=== PATIENT | male | born 1930 | race Caucasian/White ===

== ENCOUNTER 2016-03-22 10:41 | Emergency (ER) | payer OTHER ==
[~2016-03-22] VITALS: Ht 182.9 cm; Wt 98.0 kg
[~2016-03-22 10:41] MED LIST: ASPEC81 PO; CHOL1000 PO; FRRS300 PO; FURO-85 PO; LEVO1TAB50 PO; NITR0.4S UT; PRT40 PO; SENN-83 PO; SERT50TA PO; SOMNAPURE PO; VNTHFA/IN PO
[2016-03-22 10:44] VITALS: TEMP 36.4; Ht 182.9 cm; Wt 98.0 kg
[2016-03-22] MEDS ORDERED: NYSTATIN CR 15 GM TUBE EXT ONE (11:15)
--- NOTE | 2016-03-22 11:20 | EMERGENCY ROOM VISIT NOTE ---
History Report prepared by Sydney: Deepthi Oconnell Under the Supervision of: Dr. Javier Zazueta D.O. First contact with patient: 11:07 Chief Complaint: PENIS PAIN Stated Complaint: PAIN AT HEAD OF PENIS Nursing Triage Summary: pateint with indwelling catheter detention, has been having penile burning and pain. Son states he keeps playing with himself/ Saw the [place] doctor yesterday and they told them it was all ok. Penis has yellow drainage very red and tender. History of Present Illness The patient is an 85 year old male who presents to the Emergency Room with complaints of persistent penis pain that began prior to arrival. He currently rates his discomfort as a 5/10 in severity. Per nursing staff, the patient has an indwelling catheter that is replaced monthly. They note that the patient has had the catheter for years. Nursing staff notes that the patient's son states that the patient has been playing with the catheter which has caused irritation to his penis. They note drainage from his penis. The patient's son states that the patient saw his urologist yesterday and states that he was satisfied with the way everything looked. Source of History: patient, family Onset: prior to arrival Position: other (penis) Symptom Intensity: 5/10 Timing: other (persistent) Note: Associated Symptoms: indwelling catheter. Review of Systems See HPI for pertinent positives & negatives. A total of 10 systems reviewed and were otherwise negative. Past Medical & Surgical Medical Problems: (1) AAA (abdominal aortic aneurysm) (2) Anxiety (3) CKD (chronic kidney disease) stage 3, GFR 30-59 ml/min (4) Diastolic CHF (5) Hematemesis (6) HTN (hypertension) (7) Hypothyroid (8) Prostate cancer (9) Sepsis due to urinary tract infection (10) UTI (urinary tract infection) Surgical Problems: (1) History of AAA (abdominal aortic aneurysm) repair (2) History of appendectomy (3) History of endarterectomy Family History Hypertension Social History Smoking Status: Never Smoker Alcohol Use: none Drug Use: none Marital Status: Housing Status: lives with significant other Occupation Status: retired Current/Historical Medications Scheduled Aspirin (Aspirin EC Low Dose), 81 MG PO DAILY Cholecalciferol (Vitamin D3), 1 TAB PO DAILY Ferrous Sulfate (Ferrous Sulfate), 325 MG PO DAILY@12 Furosemide (Lasix), 20 MG PO DAILY Levothyroxine Sodium (Levoxyl), 75 MCG PO DAILY Pantoprazole (Pantoprazole Sodium), 40 MG PO BID Sennosides-Docusate Sodium (Senexon-S), 1 TAB PO HS Sertraline (Zoloft), 50 MG PO DAILY [somnapure], 1 TAB PO HS Scheduled PRN Albuterol Hfa (Ventolin Hfa), 2 PUFFS PO Q4H PRN for Wheezing Nitroglycerin (Nitrostat), 0.4 MG UT UD PRN for Chest Pain Allergies Coded Allergies: No Known Allergies (Unverified , 11/08/15) Physical Exam Vital Signs Date Time Temp Pulse Resp B/P Pulse Ox O2 Delivery O2 Flow Rate FiO2 03/22/16 10:44 36.4 85 16 119/66 99 Room Air Physical Exam CONSTITUTIONAL/VITAL SIGNS: Reviewed / noted above. GENERAL: Non-toxic in appearance. INTEGUMENTARY: Warm, dry, and [place]. HEAD: Normocephalic. EYES: without scleral icterus or trauma. ENT/OROPHARYNX: clear and moist. LYMPHADENOPATHY/NECK: Is supple without lymphadenopathy or meningismus. RESPIRATORY: Lungs clear and equal. CARDIOVASCULAR: Regular rate and rhythm. GI/ABDOMEN: Soft and nontender. No organomegaly or pulsatile mass. No rebound or guarding. Normal bowel sounds. EXTREMITIES: Warm and well perfused. BACK: No CVA tenderness. : Uncircumcised. Mild erythema to the head of the penis with a mild yeast infection of the uncircumcised penis. NEUROLOGICAL: Intact without focal deficits. PSYCHIATRIC: normal affect. MUSCULOSKELETAL: Normally developed with good muscle tone. Medical Decision & Procedures Medications Administered Medications (Trade) Dose Ordered Sig/Amilcar Route Start Time Stop Time Status Last Admin Dose Admin Nystatin (Mycostatin Crm) 1 appln ONE ONCE EXT 03/22/16 11:15 03/22/16 11:16 DC 03/22/16 11:23 1 APPLN ED Course 1109: Previous medical records were reviewed. The patient was evaluated in room C4. A complete history and physical examination was performed. I discussed the exam findings and I discussed the treatment plan. He verbalized complete understanding and agreement. He is ready to go home. 1115: Ordered Nystatin 1 appln EXT. Medical Decision differential diagnosis include Infection vs. trauma vs. paraphimosis, and phimosis This is an 85-year-old male who presents to the ED with a chief complaint of discomfort in his penis. The patient has an indwelling Rothman catheter. He saw his urologist yesterday. He apparently did not have any complaints yesterday according to the son. Today he describes discomfort in the head of the penis area. The exam reveals some erythema of the head of the penis and the skin thereabouts. He is uncircumcised. There is a small amount of whitish discharge. There was discomfort with retraction of his foreskin. This was replaced. He will be started on nystatin cream twice a day. Impression Primary Impression: Intertrigo Additional Impression: Candidal intertrigo Scribe Attestation The scribe's documentation has been prepared under my direction and personally reviewed by me in its entirety. I confirm that the note above accurately reflects all work, treatment, procedures, and medical decision making performed by me. Departure Information Dispostion Home / Self-Care Referrals No Doctor, Assigned (PCP) Forms HOME CARE DOCUMENTATION FORM, IMPORTANT VISIT INFORMATION Patient Instructions My [facility] [place] Additional Instructions Use nystatin cream to the affected area the penis twice daily. Follow-up with your doctor for recheck in one week. Problem Qualifiers
[2016-03-22 11:44] VITALS: BP 150/78; PULSE 80; O2SAT 97
[2016-04-02] MEDS ORDERED: AMB5 PO (14:21)
[2016-04-02] MEDS ORDERED: CMD3 PO (14:21)
[2016-04-02] MEDS ORDERED: RXC5 PO (14:46)
[2016-06-14] MEDS ORDERED: DXY100 PO (12:13)
[2016-06-14] MEDS ORDERED: PRED10TA PO (12:13)
[2016-08-07] MEDS ORDERED: PRED-301 PO (16:15)
[2016-08-07] MEDS ORDERED: CARV6.252 PO (16:15)
[2016-08-07] MEDS ORDERED: LORA-741 PO (19:00)
== END 2016-03-22 11:46 | disposition home or self-care (01) ==
LOC: C.EDB 10:42 → C.EDC 11:46
DX: B37.2 Candidiasis of skin and nail (principal); N18.3 Chronic kidney disease, stage 3 (moderate); F41.9 Anxiety disorder, unspecified; I50.9 Heart failure, unspecified; E03.9 Hypothyroidism, unspecified; Z85.46 Personal history of malignant neoplasm of prostate; Z82.49 Family history of ischemic heart disease and other diseases of the circulatory system; Z79.82 Long term (current) use of aspirin; Z79.899 Other long term (current) drug therapy

== ENCOUNTER 2016-03-27 11:41 | Inpatient (IN) | payer OTHER ==
[~2016-03-27] VITALS: Ht 185.4 cm; Wt 97.0 kg
[2016-03-27] MEDS ORDERED: ALBUT/IPRATROP 3MG/0.5MG NEB 3 ML VIAL INH ONE (12:15)
--- NOTE | 2016-03-27 12:22 | EMERGENCY ROOM VISIT NOTE ---
History Report prepared by Sydney: Milo Washington Under the Supervision of: Dr. Javier Grider M.D. First contact with patient: 11:53 Chief Complaint: SHORTNESS OF BREATH Stated Complaint: SOB Nursing Triage Summary: Pt c/o shortness of breath, no associated cough for approx 1 week. Pts son reports this started this AM. Pt seen here on Friday d/t urinary symptoms. History of Present Illness The patient is an 86 year old male with a history of COPD who presents to the Emergency Room with complaints of worsening shortness of breath for the past week. The patient's son states that the shortness of breath became worse this morning. The patient denies any fevers, chest pain, or coughing. The patient tried using his inhaler, which has not helped. The patient does not have a cardiac history and is not on blood thinners. The patient also complains of penile pain associated with a Rothman catheter. He was here for the same pain five days ago. He has been applying his prescription cream. The patient's son notes that there is blood in his catheter, which is still draining. Source of History: patient, family (son) Onset: one week Position: other (respiratory) Quality: other (short of breath) Timing: worsening Associated Symptoms: No chest pain, No cough, No fevers Review of Systems See HPI for pertinent positives & negatives. A total of 10 systems reviewed and were otherwise negative. Past Medical & Surgical Medical Problems: (1) AAA (abdominal aortic aneurysm) (2) Anxiety (3) CAD (coronary artery disease) (4) CKD (chronic kidney disease) stage 3, GFR 30-59 ml/min (5) Diastolic CHF (6) Dyslipidemia (7) HTN (hypertension) (8) Hypothyroid (9) Prostate cancer Surgical Problems: (1) duodenal ulcer repair (2) H/O prostatectomy (3) H/O right inguinal hernia repair (4) History of AAA (abdominal aortic aneurysm) repair (5) History of appendectomy (6) History of cataract surgery (7) History of endarterectomy Family History Hypertension Social History Smoking Status: Former Smoker Alcohol Use: none Drug Use: none Marital Status: Housing Status: lives with significant other Occupation Status: retired Current/Historical Medications Scheduled Aspirin (Aspirin EC Low Dose), 81 MG PO DAILY Cholecalciferol (Vitamin D3), 1 TAB PO DAILY Ferrous Sulfate ( Ferrous Sulfate), 1 TAB PO DAILY Furosemide (Lasix), 20 MG PO DAILY Latanoprost (Xalatan 0.005% Oph Irma), 1 DROPS OPL HS Levothyroxine Sodium (Synthroid), 75 MCG PO DAILY Melatonin (Melatonin Maximum Strengt), 1 TAB PO HS Oxybutynin Chloride Er (Ditropan Xl), 1 TAB PO DAILY Pantoprazole (Pantoprazole Sodium), 40 MG PO BID Sennosides-Docusate Sodium (Senexon-S), 1 TAB PO HS Sertraline (Zoloft), 50 MG PO DAILY Scheduled PRN Albuterol Hfa (Ventolin Hfa), 2 PUFFS PO Q4H PRN for Wheezing Nitroglycerin (Nitrostat), 0.4 MG UT UD PRN for Chest Pain Allergies Coded Allergies: No Known Allergies (Unverified , 03/27/16) Physical Exam Vital Signs Date Time Temp Pulse Resp B/P Pulse Ox O2 Delivery O2 Flow Rate FiO2 03/27/16 15:06 68 14 93 Room Air 03/27/16 14:31 96 18 118/54 91 Room Air 03/27/16 13:30 73 16 122/66 100 Room Air 03/27/16 12:30 67 16 118/67 96 Room Air 03/27/16 12:19 71 03/27/16 12:18 96 Room Air 03/27/16 12:01 96 Room Air 03/27/16 12:01 96 Room Air 03/27/16 11:46 36.3 77 18 132/78 93 Room Air 03/27/16 11:46 93 Room Air Physical Exam GENERAL: Patient is a healthy-appearing well-nourished HEAD: Normocephalic atraumatic EYES: Ocular movements intact pupils equal and react to light OROPHARYNX mucous membranes are moist no exudates present no erythema or edema present NECK: Supple no nuchal rigidity CHEST: Good equal expansion LUNGS: Clear and equal to auscultation CARDIAC: Normal S1 and S2 ABDOMEN: Soft nontender no guarding BACK: No CVA tenderness : Rothman in place. EXTREMITIES: No pain upon palpation normal muscle strength in all groups no clubbing cyanosis or edema NEURO: Patient is following commands is answering questions appropriately. Alert and oriented x3 Cranial Nerves 2-12 grossly intact Medical Decision & Procedures ER Provider Diagnostic Interpretation: X-ray results as stated below per my interpretation and radiologist interpretation. Other radiology results as stated below per my review and radiologist interpretation: CHEST ONE VIEW PORTABLE CLINICAL HISTORY: Hypoxia. COMPARISON STUDY: Chest radiograph November 08, 2015. FINDINGS: No pneumothorax or pleural effusion is present. Elevation of the right hemidiaphragm is unchanged. Moderate cardiomegaly is unchanged. Mild interstitial thickening is noted. This is similar to prior study. There is no lobar consolidation. Mild bibasilar opacities favor atelectasis. IMPRESSION: 1. Mild age indeterminate interstitial thickening. 2. Stable elevation of the right hemidiaphragm. 3. Stable moderate cardiomegaly. Electronically signed by: Heath Mendez M.D. 03/27/2016 1:12 PM Dictated Date/Time: 03/27/2016 1:11 PM ABDOMEN AND PELVIS CT WITHOUT CONTRAST CT DOSE: 1142.85 mGycm HISTORY: Pt c/o hematuria TECHNIQUE: Multiaxial CT images of the abdomen and pelvis were performed without contrast. COMPARISON STUDY: Abdomen and pelvis CT 11/08/2015. FINDINGS: Mild to moderate bilateral cortical renal scarring. Bilateral renal hypodense lesions are incompletely characterized on this noncontrast study. These remain stable. Dominant lesion within the lower pole of the left kidney measures 6.7 cm. In comparison to the prior study this is consistent with a cyst. No renal stones or hydronephrosis. The bladder is decompressed by Rothman catheter. The distal ureters are not well visualized due to the metallic artifact from the multiple surgical clips within the pelvis. However, the visualized ureters appear to be normal in course and caliber. No ureteral calculi identified. There is again noted an aortobiiliac stent graft repair of abdominal aortic aneurysm. The abdominal aorta measures up to 5.0 x 4.4 cm. This remains unchanged. Right lower quadrant tubing extending into the right groin. This is consistent with a implant device. No pelvic free fluid. Suboptimal evaluation for bowel pathology due to the lack of intravenous and oral contrast. However, no definite bowel wall thickening or obstruction. Multiple colonic diverticula. The heart is mildly enlarged. Diffuse interstitial thickening throughout the visualized lungs. The unenhanced liver, gallbladder, spleen, adrenal glands, and pancreas are unremarkable. The prostate gland appears to be surgically absent. The 13 mm lesion within the upper pole may demonstrate enhancement in comparison to the prior study. This raises the possibility of a small renal cell carcinoma. IMPRESSION: 1. No renal stones or hydronephrosis. 2. Bilateral renal lesions are indeterminate on this noncontrast study but remain unchanged. The 13 mm lesion within the upper pole may demonstrate enhancement in comparison to the prior study. This raises the possibility of a small renal cell carcinoma. Dedicated renal CT can be used for confirmation. 3. Colonic diverticulosis. 4. No definite bowel wall thickening or obstruction. 5. Stable aneurysmal dilatation of the abdominal aorta with evidence for prior aortobiiliac stent graft repair. Electronically signed by: Arden Calle M.D. 03/27/2016 1:27 PM Dictated Date/Time: 03/27/2016 1:15 PM Laboratory Results Test 03/27/16 12:00 03/27/16 13:27 Immature Granulocyte % (Auto) 0.3 % White Blood Count 10.12 K/uL (4.8-10.8) Red Blood Count 4.24 M/uL (4.7-6.1) Hemoglobin 12.9 g/dL (14.0-18.0) Hematocrit 38.6 % (42-52) Mean Corpuscular Volume 91.0 fL (80-100) Mean Corpuscular Hemoglobin 30.4 pg (25-34) Mean Corpuscular Hemoglobin Concent 33.4 g/dl (32-36) Platelet Count 192 K/uL (130-400) Mean Platelet Volume 10.4 fL (7.4-10.4) Neutrophils (%) (Auto) 71.0 % Lymphocytes (%) (Auto) 15.5 % Monocytes (%) (Auto) 10.1 % Eosinophils (%) (Auto) 2.9 % Basophils (%) (Auto) 0.2 % Neutrophils # (Auto) 7.19 K/uL (1.4-6.5) Lymphocytes # (Auto) 1.57 K/uL (1.2-3.4) Monocytes # (Auto) 1.02 K/uL (0.11-0.59) Eosinophils # (Auto) 0.29 K/uL (0-0.5) Basophils # (Auto) 0.02 K/uL (0-0.2) Immature Granulocyte # (Auto) 0.03 K/uL (0.00-0.02) D-Dimer 8140 ug/L FEU (0-500) Total Bilirubin 0.3 mg/dl (0.2-1) Aspartate Amino Transf (AST/SGOT) 11 U/L (15-37) Alanine Aminotransferase (ALT/SGPT) 12 U/L (12-78) Alkaline Phosphatase 76 U/L (45-117) Total Creatine Kinase 36 U/L (39-308) Creatine Kinase MB 1.5 ng/ml (0.5-3.6) Creatine Kinase MB Ratio 4.2 (0-3.0) Troponin I < 0.015 ng/ml (0-0.045) Total Protein 7.7 gm/dl (6.4-8.2) Albumin 3.5 gm/dl (3.4-5.0) Globulin 4.2 gm/dl (2.5-4.0) Albumin/Globulin Ratio 0.8 (0.9-2) Influenza Type A (RT-PCR) Neg for Influ A (NEG) Influenza Type B (RT-PCR) Neg for Influ B (NEG) Labs reviewed by ED physician. Medications Administered Medications (Trade) Dose Ordered Sig/Amilcar Route Start Time Stop Time Status Last Admin Dose Admin Albuterol/ Ipratropium (Duoneb) 12 ml ONE ONCE INH 03/27/16 12:15 03/27/16 12:16 DC 03/27/16 13:27 12 ML Morphine Sulfate (MoRPHine SULFATE INJ) 2 mg NOW STAT IV 03/27/16 12:24 03/27/16 12:25 DC 03/27/16 12:48 2 MG Ondansetron HCl (Zofran Inj) 4 mg NOW STAT IV 03/27/16 12:24 03/27/16 12:25 DC 03/27/16 12:48 4 MG Ceftriaxone Sodium (Rocephin Inj) 1 gm NOW STAT IV 03/27/16 14:27 03/27/16 14:28 DC 03/27/16 14:38 1 GM Methylprednisolone Sodium Succinate (Solu-Medrol IV) 60 mg NOW STAT IV 03/27/16 15:00 03/27/16 15:01 DC 03/27/16 15:31 60 MG Acetaminophen (Tylenol Tab) 650 mg Q4H PRN PO 03/27/16 15:15 04/26/16 15:14 03/28/16 08:18 650 MG ECG Indication: SOB/dyspnea Rate (beats per minute): 69 Rhythm: normal sinus Findings: no acute ischemic change, no ectopy ED Course 1155: The patient was evaluated by my Nurse Practitioner student. 1215: DuoNeb 12 ml INH. 1217: Past medical records reviewed. The patient was evaluated in room A4b. A complete history and physical examination was performed. 1224: Zofran 4 mg IV, Morphine Sulfate 2 mg IV. 1427: Rocephin 1 gm IV. 1458: Discussed the case with MARY BETH Taylor [facility] Hospitalist. The patient will be evaluated. 1500: Solu-Medrol 60 mg IV. Medical Decision Etiologies such as infections, reactive airway disease, pneumonia, pneumothorax , COPD, CHF, cardiac ischemia, pulmonary embolism, musculoskeletal, gastrointestinal, as well as others were entertained. This is an 86-year-old male who presents emergency department complaining of worsening shortness of breath as well as increased penis pain. The patient was recently evaluated for the penis pain and started on nystatin. He was given an hour-long breathing treatment in the emergency department started on Solu- Medrol. He does have a history of COPD. He was started on Rocephin for urinary tract infection. I did discuss case with the hospitalist service who agreed to admit the patient. Patient and family were in agreement with the treatment plan. Consults Time Called: 1450 Consulting Physician: MARY BETH [facility]ist Returned Call: [phone]: Discussed the case with MARY BETH [facility] Hospitalist. The patient will be evaluated Impression Primary Impression: UTI (urinary tract infection) Scribe Attestation The scribe's documentation has been prepared under my direction and personally reviewed by me in its entirety. I confirm that the note above accurately reflects all work, treatment, procedures, and medical decision making performed by me. Departure Information Dispostion Being Evaluated By Hospitalist Referrals Nikki Peters M.D. (PCP) Patient Instructions My [facility] Health Problem Qualifiers Primary Impression: UTI (urinary tract infection) Urinary tract infection type: acute cystitis Hematuria presence: without hematuria Qualified Codes: N30.00 - Acute cystitis without hematuria
[2016-03-27 12:24] LABS: BASO % 0.2 %; BASO ABS # 0.02 K/uL (0-0.2); COMPLETE YES; EOS % 2.9 %; HEMATOCRIT 38.6 % (42-52); IG% 0.3 %; LYMPH % 15.5 %; LYMPH ABS # 1.57 K/uL (1.2-3.4); MEAN CORPUSCULAR HEMOGLOBIN 30.4 pg (25-34); MEAN CORPUSCULAR HGB CONC 33.4 g/dl (32-36); MEAN PLATELET VOLUME 10.4 fL (7.4-10.4); MONO % 10.1 %; PLATELET COUNT 192 K/uL (130-400); RED BLOOD COUNT 4.24 M/uL (4.7-6.1); WHITE BLOOD COUNT 10.12 K/uL (4.8-10.8)
[2016-03-27] MEDS ORDERED: ONDANSETRON INJ 2 MG/ML 2 ML VIAL IV STA (12:24)
[2016-03-27] MEDS ORDERED: MoRPHine SULFATE 4 MG/ML 1 ML CARP\\VIAL IV STA (12:24)
[2016-03-27 12:33] LABS: ALT/SGPT 12 U/L (12-78); BLOOD UREA NITROGEN 32 mg/dl (7-18); BUN/CREATININE RATIO 22.6 (10-20); CALCIUM 9.1 mg/dl (8.5-10.1); CARBON DIOXIDE 30 mmol/L (21-32); CHLORIDE 97 mmol/L (98-107); GLUCOSE 102 mg/dl (70-99); POTASSIUM 4.6 mmol/L (3.5-5.1); SODIUM 136 mmol/L (136-145)
[2016-03-27] MEDS ORDERED: LEVO75TA PO (12:34)
[2016-03-27 12:37] LABS: ALB/GLOB RATIO 0.8 (0.9-2); ALKALINE PHOSPHATASE 76 U/L (45-117); AST/SGOT 11 U/L (15-37); CKMB/CK RATIO 4.2 (0-3.0)
--- NOTE | 2016-03-27 13:15 | DIAGNOSTIC IMAGING REPORT ---
CHEST ONE VIEW PORTABLE CLINICAL HISTORY: Hypoxia. COMPARISON STUDY: Chest radiograph November 08, 2015. FINDINGS: No pneumothorax or pleural effusion is present. Elevation of the right hemidiaphragm is unchanged. Moderate cardiomegaly is unchanged. Mild interstitial thickening is noted. This is similar to prior study. There is no lobar consolidation. Mild bibasilar opacities favor atelectasis. IMPRESSION: 1. Mild age indeterminate interstitial thickening. 2. Stable elevation of the right hemidiaphragm. 3. Stable moderate cardiomegaly. Electronically signed by: Heath Mendez M.D. 03/27/2016 1:12 PM Dictated Date/Time: 03/27/2016 1:11 PM
--- NOTE | 2016-03-27 13:29 | DIAGNOSTIC IMAGING REPORT ---
ABDOMEN AND PELVIS CT WITHOUT CONTRAST CT DOSE: 1142.85 mGycm HISTORY: Pt c/o hematuria TECHNIQUE: Multiaxial CT images of the abdomen and pelvis were performed without contrast. COMPARISON STUDY: Abdomen and pelvis CT 11/08/2015. FINDINGS: Mild to moderate bilateral cortical renal scarring. Bilateral renal hypodense lesions are incompletely characterized on this noncontrast study. These remain stable. Dominant lesion within the lower pole of the left kidney measures 6.7 cm. In comparison to the prior study this is consistent with a cyst. No renal stones or hydronephrosis. The bladder is decompressed by Rothman catheter. The distal ureters are not well visualized due to the metallic artifact from the multiple surgical clips within the pelvis. However, the visualized ureters appear to be normal in course and caliber. No ureteral calculi identified. There is again noted an aortobiiliac stent graft repair of abdominal aortic aneurysm. The abdominal aorta measures up to 5.0 x 4.4 cm. This remains unchanged. Right lower quadrant tubing extending into the right groin. This is consistent with a implant device. No pelvic free fluid. Suboptimal evaluation for bowel pathology due to the lack of intravenous and oral contrast. However, no definite bowel wall thickening or obstruction. Multiple colonic diverticula. The heart is mildly enlarged. Diffuse interstitial thickening throughout the visualized lungs. The unenhanced liver, gallbladder, spleen, adrenal glands, and pancreas are unremarkable. The prostate gland appears to be surgically absent. The 13 mm lesion within the upper pole may demonstrate enhancement in comparison to the prior study. This raises the possibility of a small renal cell carcinoma. IMPRESSION: 1. No renal stones or hydronephrosis. 2. Bilateral renal lesions are indeterminate on this noncontrast study but remain unchanged. The 13 mm lesion within the upper pole may demonstrate enhancement in comparison to the prior study. This raises the possibility of a small renal cell carcinoma. Dedicated renal CT can be used for confirmation. 3. Colonic diverticulosis. 4. No definite bowel wall thickening or obstruction. 5. Stable aneurysmal dilatation of the abdominal aorta with evidence for prior aortobiiliac stent graft repair. Electronically signed by: Arden Calle M.D. 03/27/2016 1:27 PM Dictated Date/Time: 03/27/2016 1:15 PM
[2016-03-27] MEDS ORDERED: CEFTRIAXONE SOD INJ 1 GM ADDVIAL IV STA (14:27)
[2016-03-27] MEDS ORDERED: METHYLPREDNISOLONE 125 MG VIAL IV STA (15:00)
[2016-03-27 15:04] LABS: INFLUENZA A PCR Neg for Influ A (NEG); INFLUENZA B PCR Neg for Influ B (NEG)
[2016-03-27 15:06] VITALS: PULSE 68; O2SAT 93
[2016-03-27] MEDS ORDERED: ONDANSETRON INJ 2 MG/ML 2 ML VIAL IV PRN (15:15)
[2016-03-27 15:59] LABS: URINE APPEARANCE CLEAR (CLEAR); URINE BILIRUBIN NEG (NEG); URINE COLOR DK YELLOW; URINE NITRITE NEG (NEG); URINE SPECIFIC GRAVITY 1.015 (1.000-1.030); UROBILINOGEN NEG (NEG)
[2016-03-27 16:12] LABS: MANUAL MICROSCOPIC REQUIRED? NO; REVIEW REQ? YES
[2016-03-27] MEDS ORDERED: OPTIRAY 320 IV PRN (16:15)
[2016-03-27 16:21] LABS: URINE MUCUS PRESENT (NONE PRSENT)
[2016-03-27] MEDS ORDERED: OXYB10TA PO (16:54)
[2016-03-27] MEDS ORDERED: FERR1TAB13 PO (16:54)
--- NOTE | 2016-03-27 17:48 | History and Physical ---
History & Physical Date & Time of Service: Mar 27, 2016 at 17:15 Chief Complaint: Shortness of Breath, Blood in Urine Primary Care Physician: Nikki Peters M.D. History of Present Illness 86 year old male who presents to the ER with shortness of breath and blood in his urine. Patient has underlying dementia and some history is obtained from patient's son who is at the bedside. About one month ago, patient had a arita placed for incontinence. Patient has developed irritation around the insertion site. Today patient's son reports he noted a small amount of bright red blood in the catheter tubing. This has since resolved. Also when patient woke up this morning he was complaining of shortness of breath. No cough or sputum production. He denies fever and chills. No chest pain, lightheadedness, dizziness, diaphoresis, or syncopal events. He denies abdominal pain, nausea, vomiting, and diarrhea. In the ER, patient's U/A was suggesting UTI. There was wheezing noted on exam. He was saturating 91% on room air. CXR was negative for acute findings. CT abd/pelvis was negative for acute findings as well however shows renal lesions concerning for small cell renal carcinoma. D. Dimer is elevated. Remainder of patient's labs are unremarkable. Patient was treated with IV Rocephin, solu-medrol, and neb. Past Medical/Surgical History Medical Problems: (1) AAA (abdominal aortic aneurysm) Permanent Comment: 5.1 cm s/p AAA repair 08/08/2011 Status: Resolved (2) Anxiety Status: Chronic (3) CAD (coronary artery disease) Permanent Comment: suspected, hx of abnormal stress, patient declined cardiac cath Status: Chronic (4) CKD (chronic kidney disease) stage 3, GFR 30-59 ml/min Status: Chronic (5) Diastolic CHF Permanent Comment: echo 03/2015 - EF 60-65%, grade II diastolic dysfunction Status: Chronic (6) Dyslipidemia Status: Chronic (7) HTN (hypertension) Status: Chronic (8) Hypothyroid Status: Chronic (9) Prostate cancer Status: Chronic Surgical Problems: (1) duodenal ulcer repair Status: Chronic (2) H/O prostatectomy Status: Chronic (3) H/O right inguinal hernia repair Status: Chronic (4) History of AAA (abdominal aortic aneurysm) repair Permanent Comment: 08/08/2011 Status: Resolved (5) History of appendectomy Status: Resolved (6) History of cataract surgery Status: Chronic (7) History of endarterectomy Permanent Comment: L endarterectomy 10/09/[address] Jacobs; carotid US 2014 shows 50-69% stenosis of RAFAT Status: Chronic Family History non contributory due to patient's age Social History Smoking Status: Former Smoker Alcohol Use: none Marital Status: Housing status: lives with significant other Immunizations History of Influenza Vaccine: Yes Influenza Vaccine Date: Nov 16, 2015 History of Tetanus Vaccine?: Yes Tetanus Immunization Date: Mar 03, 2005 History of Pneumococcal: Yes Pneumococcal Date: Aug 15, 2014 Allergies Coded Allergies: No Known Allergies (Unverified , 03/27/16) Home Medications Scheduled Aspirin (Aspirin EC Low Dose), 81 MG PO DAILY Cholecalciferol (Vitamin D3), 1 TAB PO DAILY Ferrous Sulfate (Kp Ferrous Sulfate), 1 TAB PO DAILY Furosemide (Lasix), 20 MG PO DAILY Latanoprost (Xalatan 0.005% Oph Irma), 1 DROPS OPL HS Levothyroxine Sodium (Synthroid), 75 MCG PO DAILY Melatonin (Melatonin Maximum Strengt), 1 TAB PO HS Oxybutynin Chloride Er (Ditropan Xl), 1 TAB PO DAILY Pantoprazole (Pantoprazole Sodium), 40 MG PO BID Sennosides-Docusate Sodium (Senexon-S), 1 TAB PO HS Sertraline (Zoloft), 50 MG PO DAILY Scheduled PRN Albuterol Hfa (Ventolin Hfa), 2 PUFFS PO Q4H PRN for Wheezing Nitroglycerin (Nitrostat), 0.4 MG UT UD PRN for Chest Pain Review of Systems 10 point review of systems was completed with the pertinent positives and negatives noted per the HPI Physical Exam Vital Signs Date Time Temp Pulse Resp B/P Pulse Ox O2 Delivery O2 Flow Rate FiO2 03/27/16 16:19 100 03/27/16 15:32 92 22 102/58 96 Nasal Cannula 2.0 03/27/16 15:06 68 14 93 Room Air 03/27/16 14:31 96 18 118/54 91 Room Air 03/27/16 13:30 73 16 122/66 100 Room Air 03/27/16 12:30 67 16 118/67 96 Room Air 03/27/16 12:19 71 1/25/17 12:18 96 Room Air 03/27/16 12:01 96 Room Air 03/27/16 12:01 96 Room Air 03/27/16 11:46 36.3 77 18 132/78 93 Room Air 03/27/16 11:46 93 Room Air please refer to Dr. Lazar's addendum for physical exam Diagnostics Laboratory Results Results Past 24 Hours Test 03/27/16 12:00 03/27/16 13:27 03/27/16 15:30 Range/Units White Blood Count 10.12 4.8-10.8 K/uL Red Blood Count 4.24 4.7-6.1 M/uL Hemoglobin 12.9 14.0-18.0 g/dL Hematocrit 38.6 42-52 % Mean Corpuscular Volume 91.0 80-100 fL Mean Corpuscular Hemoglobin 30.4 25-34 pg Mean Corpuscular Hemoglobin Concent 33.4 32-36 g/dl Platelet Count 192 130-400 K/uL Mean Platelet Volume 10.4 7.4-10.4 fL Neutrophils (%) (Auto) 71.0 % Lymphocytes (%) (Auto) 15.5 % Monocytes (%) (Auto) 10.1 % Eosinophils (%) (Auto) 2.9 % Basophils (%) (Auto) 0.2 % Neutrophils # (Auto) 7.19 1.4-6.5 K/uL Lymphocytes # (Auto) 1.57 1.2-3.4 K/uL Monocytes # (Auto) 1.02 0.11-0.59 K/uL Eosinophils # (Auto) 0.29 0-0.5 K/uL Basophils # (Auto) 0.02 0-0.2 K/uL RDW Standard Deviation 50.0 36.4-46.3 fL RDW Coefficient of Variation 14.9 11.5-14.5 % Immature Granulocyte % (Auto) 0.3 % Immature Granulocyte # (Auto) 0.03 0.00-0.02 K/uL D-Dimer 8140 0-500 ug/L FEU Sodium Level 136 136-145 mmol/L Potassium Level 4.6 3.5-5.1 mmol/L Chloride Level 97 98-107 mmol/L Carbon Dioxide Level 30 21-32 mmol/L Anion Gap 9.0 3-11 mmol/L Blood Urea Nitrogen 32 7-18 mg/dl Creatinine 1.40 0.60-1.40 mg/dl Est Creatinine Clear Calc Drug Dose 44.7 ml/min Estimated GFR () 51.6 Estimated GFR (Non- 44.5 BUN/Creatinine Ratio 22.6 10-20 Random Glucose 102 70-99 mg/dl Calcium Level 9.1 8.5-10.1 mg/dl Total Bilirubin 0.3 0.2-1 mg/dl Aspartate Amino Transf (AST/SGOT) 11 15-37 U/L Alanine Aminotransferase (ALT/SGPT) 12 12-78 U/L Alkaline Phosphatase 76 45-117 U/L Total Creatine Kinase 36 39-308 U/L Creatine Kinase MB 1.5 0.5-3.6 ng/ml Creatine Kinase MB Ratio 4.2 0-3.0 Troponin I < 0.015 0-0.045 ng/ml Total Protein 7.7 6.4-8.2 gm/dl Albumin 3.5 3.4-5.0 gm/dl Globulin 4.2 2.5-4.0 gm/dl Albumin/Globulin Ratio 0.8 0.9-2 Influenza Type A (RT-PCR) Neg for Influ A NEG Influenza Type B (RT-PCR) Neg for Influ B NEG Urine Color DK YELLOW Urine Appearance CLEAR CLEAR Urine pH 5.0 4.5-7.5 Urine Specific [place] 1.015 1.000-1.030 Urine Protein NEG NEG Urine Glucose (UA) NEG NEG Urine Ketones TRACE NEG Urine Occult Blood 2+ NEG Urine Nitrite NEG NEG Urine Bilirubin NEG NEG Urine Urobilinogen NEG NEG Urine Leukocyte Esterase MODERATE NEG Urine WBC (Auto) 5-10 0-5 /hpf Urine RBC (Auto) >30 0-4 /hpf Urine Hyaline Casts (Auto) 0 0-5 /lpf Urine Epithelial Cells (Auto) 10-20 0-5 /lpf Urine Bacteria (Auto) NEG NEG Urine Pathogenic Casts 0 /lpf Urine Mucus PRESENT NONE PRSENT Microbiology Results 03/27/16 Blood Culture, Received Pending 03/27/16 Blood Culture, Received Pending Diagnostic Radiology CXR IMPRESSION: 1. Mild age indeterminate interstitial thickening. 2. Stable elevation of the right hemidiaphragm. 3. Stable moderate cardiomegaly. CT ABD/PELVIS IMPRESSION: 1. No renal stones or hydronephrosis. 2. Bilateral renal lesions are indeterminate on this noncontrast study but remain unchanged. The 13 mm lesion within the upper pole may demonstrate enhancement in comparison to the prior study. This raises the possibility of a small renal cell carcinoma. Dedicated renal CT can be used for confirmation. 3. Colonic diverticulosis. 4. No definite bowel wall thickening or obstruction. 5. Stable aneurysmal dilatation of the abdominal aorta with evidence for prior aortobiiliac stent graft repair. Impression Assessment and Plan SHORTNESS OF BREATH - admit to med/surg - patient was 91% on room air, 96% on 2L - ? COPD exacerbation - however no formal diagnosis - no wheezing noted on exam - will use around the clock nebs; hold on steroids for now - CXR without infiltrate or CHF - D. Dimer elevated - will get CTA and BLLE dopplers HEMATURIA, RENAL LESIONS - CT abd/pelvis concerning for possible small cell renal carcinoma - due to patient's advanced age, unsure of how aggressive treatment will be - no hematuria noted currently; could be due to UTI or arita trauma - urology consult - will defer renal CT to them UTI - Rocephin, adjust per culture results - gentle IVF CHRONIC DIASTOLIC CHF - appears euvolemic - holding diuretics while giving IVF for UTI CAD - holding ASA due to hematuria HYPOTHYROIDISM - continue levothyroxine DVT PROPHYLAXIS - SCDs due to hematuria CODE STATUS - Patient is a DNR as per my discussion with patient's son Mike (also POA) who is at the bedside. DISPO - In my clinical judgment this beneficiary meets acute admission criteria, established by [facility], that includes being hospitalized through two midnights. ATTENDING NOTE : pt seen and examined with Lori RODRIGES labs and images reviewed 86 yo M with dementia, urinary incontinence with chronic Arita catheter , brought to ED with hematuria noted in Arita Bag and pt was experiencing SOB , found to be hypoxic spo2 91 % in RA improved with Nasal Canula 2 L P/E: gen : chronically ill appearing , HEENT; lips are cyanotic , HT; regular Lungs; diminished abdomen; soft genitals ; has chronic Arita foul smelling whitish drainage in penile meatus , neuro; baseline dementia , no appreciable focal deficit A/P Hypoxia/SOB : sudden onset as per Son pt is has limited mobility D dimer ordered -was elevated > 8000 CTA of chest , lower ext Doppler to R/o thrombotic event Chronic indwelling catheter : [facility] for chronic urinary incontinence ? UA + grossly positive ordered for IV Rocephin urine culture sent Renal Mass /hematuria : CT abd/pelvis concerning for possible small cell renal carcinoma urology consulted son updated at bedside given advance age -may not be a candidate for aggressive intervention DNR/DNI VTE Prophylaxis VTE Risk Assessment Done? Y/N: Yes Risk Level: Moderate
[2016-03-27 18:26] VITALS: BP 138/66; PULSE 87; TEMP 36.5; O2SAT 94
[2016-03-27 18:34] VITALS: Ht 185.4 cm; Wt 97.0 kg
--- NOTE | 2016-03-27 18:44 | DIAGNOSTIC IMAGING REPORT ---
CT ANGIOGRAM OF THE CHEST CLINICAL HISTORY: Dyspnea. Hypoxia. COMPARISON STUDY: Chest x-ray dated 03/27/2016. TECHNIQUE: Following the IV administration of 91 cc of Optiray 320, CT angiogram of the chest was performed from the upper abdomen to the thoracic inlet utilizing the pulmonary embolus protocol. Images are reviewed in the axial, sagittal, and coronal planes. 3-D MIPS images are created and assessed. IV contrast was administered without complication. The examination is moderately degraded by motion artifact. CT DOSE: 455.52 mGy.cm FINDINGS: Thyroid: Atrophic. Thoracic aorta: There is atherosclerotic calcification of the thoracic aorta, which is normal in caliber and demonstrates standard 3-vessel arch anatomy. No dissection is seen. Pulmonary vasculature: The pulmonary trunk is dilated measuring 4.1 cm in diameter. This suggests pulmonary artery hypertension. There are thin linear filling defects within segmental and subsegmental branches of the right lower lobe (axial image #112). This suggests age-indeterminate but almost certainly chronic pulmonary embolus. No additional filling defects are seen bilaterally within the main, lobar, or segmental pulmonary branches. Heart: The heart is enlarged and without pericardial effusion. Coronary arteries and mitral annulus are densely calcified. Lungs and pleural spaces: Evaluation of the lung parenchyma is significantly degraded by respiratory motion artifact. There is chronic elevation of the right hemidiaphragm with right basilar atelectasis. No lobar consolidation or pleural effusion is identified. Chronic interstitial change and nodularity is noted. The trachea and central airways are clear. Mediastinum: There is no mediastinal lymphadenopathy. Liz: Clear. Axillae: There is no axillary lymphadenopathy. Upper abdomen: Diverticulosis is noted in the partially imaged colon. There is a small hiatal hernia. Skeletal structures: The skeletal structures are osteopenic. Degenerative change is present throughout the thoracic spine. No lytic or blastic bony lesions are seen. IMPRESSION: 1. Motion degraded examination. 2. There are thin linear central filling defects identified within segmental and subsegmental branches in the right lower lobe pulmonary artery. This suggests trace and age indeterminant but almost certainly chronic pulmonary embolus. 3. No additional findings are concerning for bilateral embolus. 4. Cardiomegaly with evidence of pulmonary hypertension. 5. There is no airspace consolidation typical for pneumonia or pleural effusion. Chronic changes are discussed above. 6. Additional findings as above. Electronically signed by: Abhi Cabrera M.D. 03/27/2016 6:42 PM Dictated Date/Time: 03/27/2016 6:35 PM
[2016-03-27] MEDS: ALBUT/IPRATROP 3MG/0.5MG NEB 3 ML VIAL INH SCH (19:02)
[2016-03-27 19:05] VITALS: PULSE 81; O2SAT 91
[2016-03-27] MEDS: NYSTATIN POWDER 15GM BTL EXT SCH (19:28)
[2016-03-27] MEDS: SODIUM CHLORIDE 0.9% 1000ML 1,000 ML IV SCH (19:28)
[2016-03-27] MEDS: DOCUSATE SODIUM/SENNA 50/8.6MG TAB PO SCH (19:31)
[2016-03-27] MEDS: PANTOprazole SOD 40 MG TAB PO SCH (19:32)
[2016-03-27 20:34] LABS: MANUAL MICROSCOPIC REQUIRED? NO; REVIEW REQ? NO; URINE APPEARANCE CLEAR (CLEAR); URINE BILIRUBIN NEG (NEG); URINE COLOR YELLOW; URINE EPITHELIAL CELL AUTO 0-5 /lpf (0-5); URINE NITRITE NEG (NEG); URINE SPECIFIC GRAVITY > 1.045 (1.000-1.030); UROBILINOGEN NEG (NEG); ZZURINE CULT IF INDIC CATH NO
[2016-03-27] MEDS ORDERED: HEPARIN IV LOW DOSE NO BOLUS SCH (21:11)
--- NOTE | 2016-03-27 21:12 | Progress Note ---
Progress Note CTA CHEST IMPRESSION: 1. Motion degraded examination. 2. There are thin linear central filling defects identified within segmental and subsegmental branches in the right lower lobe pulmonary artery. This suggests trace and age indeterminant but almost certainly chronic pulmonary embolus. 3. No additional findings are concerning for bilateral embolus. 4. Cardiomegaly with evidence of pulmonary hypertension. 5. There is no airspace consolidation typical for pneumonia or pleural effusion. Chronic changes are discussed above. 6. Additional findings as above. CTA chest showing chronic pulmonary embolus. Due to patient's symptoms of hypoxia and shortness of breath, will go ahead and start low dose IV heparin without bolus. BLLE dopplers pending Discussed with nursing - no further hematuria noted. Will continue to monitor for bleeding closely and check H/H in 6 hours. (Lori Anthony ., MARY BETH) ATTENDING NOTE : notified by Lori Marley of CT chest finding of chronic PE given pt 's presentation with hypoxia , SOB will start pt on anticoagulation with IV heparin monitor for hematuria ( urine was yellow /clear in ED ) follow H&H (Naima Lazar M.D.)
--- NOTE | 2016-03-27 21:34 | DIAGNOSTIC IMAGING REPORT ---
ULTRASOUND BILATERAL LOWER EXTREMITY VENOUS CLINICAL HISTORY: Elevated d-dimer. Dyspnea. COMPARISON STUDY: No priors. TECHNIQUE: Real-time, grayscale, and color Doppler sonography of the deep veins of the right and left lower extremity was performed from the inguinal crease to the calf. Compression and augmentation were utilized. FINDINGS: There is no sonographic evidence of deep venous thrombosis identified in the right or left lower extremity. The common femoral, superficial femoral, and popliteal veins are patent and normally compressible bilaterally. The greater saphenous vein and the profunda femoris vein at the junction with the common femoral vein are clear in both legs. The visualized calf veins are patent bilaterally. IMPRESSION: There is no sonographic evidence of deep venous thrombosis identified in the right or left lower extremity. Electronically signed by: Abhi Cabrera M.D. 03/27/2016 9:32 PM Dictated Date/Time: 03/27/2016 9:32 PM
[2016-03-27 22:00] LABS: PROTHROMBIN TIME (PATIENT) 10.9 SECONDS (9.0-12.0)
[2016-03-27] MEDS: HEPARIN 25,000 UNIT/500ML D5W 500 ML IV PRN (22:58)
[2016-03-27] MEDS: ACETAMINOPHEN 325 MG TAB PO PRN (23:36)
[2016-03-28 00:16] VITALS: BP 111/72; PULSE 72; TEMP 36.6; O2SAT 92
[2016-03-28 05:05] LABS: HEMATOCRIT 33.5 % (42-52); MEAN CELL VOLUME 90.8 fL (80-100); MEAN CORPUSCULAR HEMOGLOBIN 29.5 pg (25-34); MEAN CORPUSCULAR HGB CONC 32.5 g/dl (32-36); MEAN PLATELET VOLUME 10.8 fL (7.4-10.4); PLATELET COUNT 174 K/uL (130-400); RED BLOOD COUNT 3.69 M/uL (4.7-6.1); WHITE BLOOD COUNT 6.23 K/uL (4.8-10.8)
[2016-03-28 05:55] LABS: PARTIAL THROMBOPLASTIN RATIO 1.3
[2016-03-28 06:11] LABS: CALCIUM 8.5 mg/dl (8.5-10.1); CREATININE 1.4 mg/dl (0.60-1.40); POTASSIUM 4.4 mmol/L (3.5-5.1)
[2016-03-28] MEDS ORDERED: HEPARIN IV BOLUS 4,500 UNIT in SYRINGE 0 ML IV STA (06:12)
[2016-03-28] MEDS: LEVOTHYROXINE 75 MCG TAB PO SCH (06:20)
[2016-03-28] MEDS: SODIUM CHLORIDE 0.9% 1000ML 1,000 ML IV SCH (06:20)
[2016-03-28] MEDS: HEPARIN 25,000 UNIT/500ML D5W 500 ML IV PRN ×2 (06:22→22:40)
[2016-03-28 07:33] VITALS: PULSE 72; O2SAT 93
[2016-03-28] MEDS: ALBUT/IPRATROP 3MG/0.5MG NEB 3 ML VIAL INH SCH ×4 (07:36→19:51)
--- NOTE | 2016-03-28 07:57 | Urology Consultation ---
History General Date of Service: Mar 28, 2016. Chief Complaint: urethral bleeding and renal mass Primary Care Physician: Nikki Peters M.D. Pt seen a urologist before?: Yes If yes, why?: prostate cancer History of Present Illness I am asked by Lori mercedes to see pt for blood per urethra and renal mass. He is admitted with SOB. He has a Arita for one month to manage incontinence. His son noted red blood along tubing. It has since resolved. He also had a CT scan in ER showing a very small right renal mass. He feels fine today. Imaging Imaging: CT Laboratory Results Past 24 Hours Test 03/27/16 12:00 03/27/16 13:27 03/27/16 15:30 03/27/16 20:00 Range/Units White Blood Count 10.12 4.8-10.8 K/uL Red Blood Count 4.24 4.7-6.1 M/uL Hemoglobin 12.9 14.0-18.0 g/dL Hematocrit 38.6 42-52 % Mean Corpuscular Volume 91.0 80-100 fL Mean Corpuscular Hemoglobin 30.4 25-34 pg Mean Corpuscular Hemoglobin Concent 33.4 32-36 g/dl Platelet Count 192 130-400 K/uL Mean Platelet Volume 10.4 7.4-10.4 fL Neutrophils (%) (Auto) 71.0 % Lymphocytes (%) (Auto) 15.5 % Monocytes (%) (Auto) 10.1 % Eosinophils (%) (Auto) 2.9 % Basophils (%) (Auto) 0.2 % Neutrophils # (Auto) 7.19 1.4-6.5 K/uL Lymphocytes # (Auto) 1.57 1.2-3.4 K/uL Monocytes # (Auto) 1.02 0.11-0.59 K/uL Eosinophils # (Auto) 0.29 0-0.5 K/uL Basophils # (Auto) 0.02 0-0.2 K/uL RDW Standard Deviation 50.0 36.4-46.3 fL RDW Coefficient of Variation 14.9 11.5-14.5 % Immature Granulocyte % (Auto) 0.3 % Immature Granulocyte # (Auto) 0.03 0.00-0.02 K/uL D-Dimer 8140 0-500 ug/L FEU Sodium Level 136 136-145 mmol/L Potassium Level 4.6 3.5-5.1 mmol/L Chloride Level 97 98-107 mmol/L Carbon Dioxide Level 30 21-32 mmol/L Anion Gap 9.0 3-11 mmol/L Blood Urea Nitrogen 32 7-18 mg/dl Creatinine 1.40 0.60-1.40 mg/dl Est Creatinine Clear Calc Drug Dose 44.7 ml/min Estimated GFR () 51.6 Estimated GFR (Non- 44.5 BUN/Creatinine Ratio 22.6 10-20 Random Glucose 102 70-99 mg/dl Calcium Level 9.1 8.5-10.1 mg/dl Total Bilirubin 0.3 0.2-1 mg/dl Aspartate Amino Transf (AST/SGOT) 11 15-37 U/L Alanine Aminotransferase (ALT/SGPT) 12 12-78 U/L Alkaline Phosphatase 76 45-117 U/L Total Creatine Kinase 36 39-308 U/L Creatine Kinase MB 1.5 0.5-3.6 ng/ml Creatine Kinase MB Ratio 4.2 0-3.0 Troponin I < 0.015 0-0.045 ng/ml Total Protein 7.7 6.4-8.2 gm/dl Albumin 3.5 3.4-5.0 gm/dl Globulin 4.2 2.5-4.0 gm/dl Albumin/Globulin Ratio 0.8 0.9-2 Influenza Type A (RT-PCR) Neg for Influ A NEG Influenza Type B (RT-PCR) Neg for Influ B NEG Urine Color DK YELLOW YELLOW Urine Appearance CLEAR CLEAR CLEAR Urine pH 5.0 5.0 4.5-7.5 Urine Specific [place] 1.015 > 1.045 1.000-1.030 Urine Protein NEG NEG NEG Urine Glucose (UA) NEG NEG NEG Urine Ketones TRACE NEG NEG Urine Occult Blood 2+ 1+ NEG Urine Nitrite NEG NEG NEG Urine Bilirubin NEG NEG NEG Urine Urobilinogen NEG NEG NEG Urine Leukocyte Esterase MODERATE MODERATE NEG Urine WBC (Auto) 5-10 >30 0-5 /hpf Urine RBC (Auto) >30 0-4 0-4 /hpf Urine Hyaline Casts (Auto) 0 1-5 0-5 /lpf Urine Epithelial Cells (Auto) 10-20 0-5 0-5 /lpf Urine Bacteria (Auto) NEG NEG NEG Urine Pathogenic Casts 0 /lpf Urine Mucus PRESENT NONE PRSENT Test 03/27/16 21:31 03/28/16 03:08 03/28/16 05:26 Range/Units Prothrombin Time 10.9 9.0-12.0 SECONDS Prothromb Time International Ratio 1.0 0.9-1.1 Activated Partial Thromboplast Time 25.9 33.8 21.0-31.0 SECONDS Partial Thromboplastin Ratio 1.0 1.3 White Blood Count 6.23 4.8-10.8 K/uL Red Blood Count 3.69 4.7-6.1 M/uL Hemoglobin 10.9 14.0-18.0 g/dL Hematocrit 33.5 42-52 % Mean Corpuscular Volume 90.8 80-100 fL Mean Corpuscular Hemoglobin 29.5 25-34 pg Mean Corpuscular Hemoglobin Concent 32.5 32-36 g/dl RDW Standard Deviation 50.6 36.4-46.3 fL RDW Coefficient of Variation 15.1 11.5-14.5 % Platelet Count 174 130-400 K/uL Mean Platelet Volume 10.8 7.4-10.4 fL Sodium Level 139 136-145 mmol/L Potassium Level 4.4 3.5-5.1 mmol/L Chloride Level 102 98-107 mmol/L Carbon Dioxide Level 30 21-32 mmol/L Anion Gap 7.0 3-11 mmol/L Blood Urea Nitrogen 34 7-18 mg/dl Creatinine 1.40 0.60-1.40 mg/dl Est Creatinine Clear Calc Drug Dose 44.7 ml/min Estimated GFR () 51.6 Estimated GFR (Non- 44.5 BUN/Creatinine Ratio 24.0 10-20 Random Glucose 125 70-99 mg/dl Calcium Level 8.5 8.5-10.1 mg/dl Microbiology Results 03/27/16 Blood Culture, Received Pending 03/27/16 Blood Culture, Received Pending 03/27/16 Urine Culture, Received Pending Labs were reviewed and are within normal limits unless listed below. Labs are available in the chart and at [facility] Problem List Medical Problems: (1) Abdominal pain Status: Acute (2) Candidal intertrigo Status: Acute (3) Intertrigo Status: Acute Past History anxiety, cancer - prostate, coronary artery disease, dementia, high cholesterol , hypertension, hypothyroidism, osteoarthritis, renal disease, vascular disease Past Surgical History: other (CEA, AAA, prostatectomy) Family History Hypertension not relevant for his age Social History Hx Tobacco Use In Past Year?: No Smoking: non-smoker Alcohol: never Marital status: Housing status: lives with significant other Occupation status: retired Immunizations History of Influenza Vaccine: Yes Influenza Vaccine Date: Nov 16, 2015 History of Tetanus Vaccine?: Yes Tetanus Immunization Date: Mar 03, 2005 History of Pneumococcal: Yes Pneumococcal Date: Aug 15, 2014 Allergies Coded Allergies: No Known Allergies (Unverified , 03/27/16) Medications Home Medications: Home Meds and Scripts Medications Dose Route/Sig Max Daily Dose Days Date Category Kp Ferrous Sulfate (Ferrous Sulfate) 325 Mg Tab 1 Tab PO DAILY 30 03/27/16 Reported Ditropan Xl (Oxybutynin Chloride) 10 Mg Tab 1 Tab PO DAILY 30 03/27/16 Reported Synthroid (Levothyroxine Sodium) 75 Mcg Tab 75 Mcg PO DAILY 03/27/16 Reported Zoloft (Sertraline HCl) 50 Mg Tab 50 Mg PO DAILY 11/08/15 Reported Vitamin D3 (Cholecalciferol) 1,000 Unit Tab 1 Tab PO DAILY 90 11/08/15 Reported Senexon-S (Sennosides-Docusate Sodium) 1 Tab Tab 1 Tab PO HS 11/08/15 Reported Lasix (Furosemide) 20 Mg Tab 20 Mg PO DAILY 11/08/15 Reported Pantoprazole Sodium (Pantoprazole) 40 Mg Tab 40 Mg PO BID 30 10/18/15 Rx Ventolin Hfa (Albuterol) 200 Puffs/90015 Mcg Aers 2 Puffs PO Q4H PRN 10/11/15 Reported Aspirin EC Low Dose (Aspirin) 81 Mg Ectab 81 Mg PO DAILY 10/11/15 Reported Nitrostat (Nitroglycerin) 0.4 Mg Sub 0.4 Mg UT UD PRN 09/30/11 Reported Inpatient Medications: Current Inpatient Medications Medications (Trade) Dose Ordered Sig/Amilcar Route Start Time Stop Time Status Last Admin Dose Admin Acetaminophen (Tylenol Tab) 650 mg Q4H PRN PO 03/27/16 15:15 04/26/16 15:14 03/27/16 23:36 650 MG Ondansetron HCl (Zofran Inj) 4 mg Q6H PRN IV 03/27/16 15:15 04/26/16 15:14 Albuterol/ Ipratropium (Duoneb) 3 ml QIDR INH 03/27/16 16:00 04/26/16 15:59 03/28/16 07:36 3 ML Nystatin (Mycostatin Powder) 1 appln BID EXT 03/27/16 20:00 04/26/16 20:59 03/27/16 19:28 1 APPLN Ioversol 125 ml 125 ml UD PRN IV 03/27/16 16:15 03/31/16 16:14 Ceftriaxone Sodium/Dextrose (Rocephin Inj/ Dextrose Add-[place] 50ML) 50 ml @ 100 mls/hr Q24H IV 03/28/16 14:00 04/05/16 14:29 Cholecalciferol (Vitamin D Tab) 1,000 inter.unit DAILY PO 03/28/16 08:00 04/27/16 08:59 Levothyroxine Sodium (Synthroid Tab) 75 mcg DAILYBB PO 03/28/16 06:30 04/27/16 08:59 03/28/16 06:20 75 MCG Oxybutynin Chloride (Ditropan-Xl Tab) 10 mg DAILY PO 03/28/16 08:00 04/27/16 08:59 Pantoprazole Sodium (Protonix Tab) 40 mg BID PO 03/27/16 20:00 04/26/16 20:59 03/27/16 19:32 40 MG Senna/Docusate Sodium (Senokot S Tab) 1 tab HS PO 03/27/16 21:00 04/26/16 20:59 03/27/16 19:31 1 TAB Sertraline HCl (Zoloft Tab) 50 mg DAILY PO 03/28/16 08:00 04/27/16 08:59 Ferrous Sulfate 325 mg 325 mg DAILY PO 03/28/16 08:00 04/27/16 08:59 Sodium Chloride 1,000 ml @ 80 mls/hr [id number] IV 03/27/16 17:45 04/26/16 17:44 03/28/16 06:20 80 MLS/HR Heparin Sodium/ Dextrose (Heparin 25,000 Unit/500ml D5W) 500 ml @ 23 mls/hr [id number] PRN IV 03/27/16 22:45 04/26/16 22:44 03/28/16 06:22 23 MLS/HR Review of Systems Review of Systems Constitutional: No chills, No fever, No weight loss Gastrointestinal: + abdominal pain, No constipation, No diarrhea, No indigestion, No nausea, No vomiting Cardiovascular: No swelling ankles/feet Respiratory: + shortness of breath, No chronic cough Male : + blood in urine, + problem reported (has catheter) Physical Exam Vital Signs: Vital Signs Past 12 Hours Date Time Temp Pulse Resp B/P Pulse Ox O2 Delivery O2 Flow Rate FiO2 03/28/16 07:33 72 16 93 Nasal Cannula 1.0 03/28/16 00:16 36.6 72 20 111/72 92 2.0 03/28/16 00:00 Nasal Cannula 2.0 03/27/16 20:00 Nasal Cannula 2.0 Physical Exam: General Appearance: WD/WN, no apparent distress, + thin Eyes: bilateral eyes normal inspection ENT: + pertinent finding (hard of hearing but seems to hear most of what I said ) Neck: no adenopathy Respiratory/Chest: no respiratory distress, no accessory muscle use Gastrointestinal: Abdomen: normal abdomen Bladder: normal bladder Renal: normal renal Hernia: absent hernia Extremities: non-tender, normal inspection, no pedal edema, no calf tenderness , normal capillary refill Neurologic/Psychiatric: alert, normal mood/affect, + pertinent finding (He seemd to answe all questions except about his catheter, then he seemed confused. ) Skin: normal color, warm/dry, no rash Assessment & Plan Assessment & Plan small renal mass- there is no danger from this mass at its present size and it is not going to become a dangerous size during his lifetime. No follow up imaging needed. Urethral bleeding- certainly arita trauma. when I saw him the arita was on severe tension at the leg strap. I corrected this. I expect this tension happens often. He will continue to have trauma to the urethra and bladder neck and will bleed intermittently so long as he has the Arita. I do not think the Arita is a good idea to manage incontinence. 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 This will continue to erode up the penile shaft month by month.
[2016-03-28 08:00] VITALS: BP_SYST 113; BP_SYST 96; BP_DIAS 48; BP_DIAS 70; PULSE 61; TEMP 36.5; O2SAT 95
[2016-03-28] MEDS: FERROUS SULFATE 325 MG TAB PO SCH (08:17)
[2016-03-28] MEDS: SERTRALINE HCL 50 MG TAB PO SCH (08:17)
[2016-03-28] MEDS: PANTOprazole SOD 40 MG TAB PO SCH ×2 (08:17→20:19)
[2016-03-28] MEDS: OXYBUTYNIN CHLORIDE 5 MG TABCR PO SCH (08:17)
[2016-03-28] MEDS: CHOLECALCIFEROL 1000 INTER.UNIT TAB PO SCH (08:17)
[2016-03-28] MEDS: ACETAMINOPHEN 325 MG TAB PO PRN ×2 (08:18→20:19)
[2016-03-28] MEDS: NYSTATIN POWDER 15GM BTL EXT SCH ×2 (11:30→20:29)
--- NOTE | 2016-03-28 11:47 | Progress Note ---
Medicine Progress Note Date & Time of Visit: Mar 28, 2016 at 11:32. Subjective Denies SOB, CP off oxygen this morning Tolerating PO Denies fevers, chills, nausea, vomiting, diarrhea Denies recent surgeries Objective Last 8 Hrs Date Time Temp Pulse Resp B/P Pulse Ox O2 Delivery O2 Flow Rate FiO2 03/28/16 08:00 36.5 61 20 96/48 95 Room Air 113/70 03/28/16 08:00 Room Air 03/28/16 07:33 72 16 93 Nasal Cannula 1.0 Physical Exam: GEN: WNWD, in no acute distress, alert and appropriate but defers history to son HEENT: NC/AT, normal sclerae CARDIO: reg rate, S1/2 heard without m/g/r LUNGS: CTA bilaterally, no crackles, rales or wheezes, good diaphragmatic excursion ABD: soft, non-tender, non-distended, no rebound or guarding, +BS : mild irritation noted at urethral opening; arita in place EXTREMITY: RP and DP palpable 2+ bilat, no LE swelling or edema, extremities are warm and well-perfused N/M: moves all extremities equally, no gross focal deficits SKIN: warm and dry and as above. Laboratory Results: Last 24 Hours Test 03/27/16 12:00 03/27/16 13:27 03/27/16 15:30 03/27/16 20:00 White Blood Count 10.12 K/uL Red Blood Count 4.24 M/uL Hemoglobin 12.9 g/dL Hematocrit 38.6 % Mean Corpuscular Volume 91.0 fL Mean Corpuscular Hemoglobin 30.4 pg Mean Corpuscular Hemoglobin Concent 33.4 g/dl Platelet Count 192 K/uL Mean Platelet Volume 10.4 fL Neutrophils (%) (Auto) 71.0 % Lymphocytes (%) (Auto) 15.5 % Monocytes (%) (Auto) 10.1 % Eosinophils (%) (Auto) 2.9 % Basophils (%) (Auto) 0.2 % Neutrophils # (Auto) 7.19 K/uL Lymphocytes # (Auto) 1.57 K/uL Monocytes # (Auto) 1.02 K/uL Eosinophils # (Auto) 0.29 K/uL Basophils # (Auto) 0.02 K/uL RDW Standard Deviation 50.0 fL RDW Coefficient of Variation 14.9 % Immature Granulocyte % (Auto) 0.3 % Immature Granulocyte # (Auto) 0.03 K/uL D-Dimer 8140 ug/L FEU Sodium Level 136 mmol/L Potassium Level 4.6 mmol/L Chloride Level 97 mmol/L Carbon Dioxide Level 30 mmol/L Anion Gap 9.0 mmol/L Blood Urea Nitrogen 32 mg/dl Creatinine 1.40 mg/dl Est Creatinine Clear Calc Drug Dose 44.7 ml/min Estimated GFR () 51.6 Estimated GFR (Non- 44.5 BUN/Creatinine Ratio 22.6 Random Glucose 102 mg/dl Calcium Level 9.1 mg/dl Total Bilirubin 0.3 mg/dl Aspartate Amino Transf (AST/SGOT) 11 U/L Alanine Aminotransferase (ALT/SGPT) 12 U/L Alkaline Phosphatase 76 U/L Total Creatine Kinase 36 U/L Creatine Kinase MB 1.5 ng/ml Creatine Kinase MB Ratio 4.2 Troponin I < 0.015 ng/ml Total Protein 7.7 gm/dl Albumin 3.5 gm/dl Globulin 4.2 gm/dl Albumin/Globulin Ratio 0.8 Influenza Type A (RT-PCR) Neg for Influ A Influenza Type B (RT-PCR) Neg for Influ B Urine Color DK YELLOW YELLOW Urine Appearance CLEAR CLEAR Urine pH 5.0 5.0 Urine Specific [place] 1.015 > 1.045 Urine Protein NEG NEG Urine Glucose (UA) NEG NEG Urine Ketones TRACE NEG Urine Occult Blood 2+ 1+ Urine Nitrite NEG NEG Urine Bilirubin NEG NEG Urine Urobilinogen NEG NEG Urine Leukocyte Esterase MODERATE MODERATE Urine WBC (Auto) 5-10 /hpf >30 /hpf Urine RBC (Auto) >30 /hpf 0-4 /hpf Urine Hyaline Casts (Auto) 0 /lpf 1-5 /lpf Urine Epithelial Cells (Auto) 10-20 /lpf 0-5 /lpf Urine Bacteria (Auto) NEG NEG Urine Pathogenic Casts /lpf Urine Mucus PRESENT Test 03/27/16 21:31 03/28/16 03:08 03/28/16 05:26 Prothrombin Time 10.9 SECONDS Prothromb Time International Ratio 1.0 Activated Partial Thromboplast Time 25.9 SECONDS 33.8 SECONDS Partial Thromboplastin Ratio 1.0 1.3 White Blood Count 6.23 K/uL Red Blood Count 3.69 M/uL Hemoglobin 10.9 g/dL Hematocrit 33.5 % Mean Corpuscular Volume 90.8 fL Mean Corpuscular Hemoglobin 29.5 pg Mean Corpuscular Hemoglobin Concent 32.5 g/dl RDW Standard Deviation 50.6 fL RDW Coefficient of Variation 15.1 % Platelet Count 174 K/uL Mean Platelet Volume 10.8 fL Sodium Level 139 mmol/L Potassium Level 4.4 mmol/L Chloride Level 102 mmol/L Carbon Dioxide Level 30 mmol/L Anion Gap 7.0 mmol/L Blood Urea Nitrogen 34 mg/dl Creatinine 1.40 mg/dl Est Creatinine Clear Calc Drug Dose 44.7 ml/min Estimated GFR () 51.6 Estimated GFR (Non- 44.5 BUN/Creatinine Ratio 24.0 Random Glucose 125 mg/dl Calcium Level 8.5 mg/dl Date/Time Source Procedure Growth Status 03/27/16 15:28 Blood Blood Culture Pending Received 03/27/16 15:25 Blood Blood Culture Pending Received 03/27/16 20:00 Urine,Catheterized Urine Culture Pending Received Assessment & Plan SHORTNESS OF BREATH w/HYPOXIA -hypoxia and SOB have resolved today -on heparin drip for "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 will get PSA with h/o prostate CA, uncertain when last cscope was (gets most of care at [facility]), and last hospitalization was last year at [facility] -will plan to start warfarin today for goal INR 2-3 and bridge with heparin as the patient was acutely short of breath yesterday requiring oxygen -however, because this appears chronic, will have Heme Onc weigh in on if they think this needs treatment. -understanding from son is that the patient is not a fall risk - CXR without infiltrate or CHF, clear lungs on exam, no h/o coughing -BL LE dopplers are negative HEMATURIA, RENAL LESIONS - CT abd/pelvis concerning for possible small cell renal carcinoma -per Urology no further imaging or workup is required at this time. - apparently hematuria is from Arita trauma. no hematuria noted currently; UA reveals concentrated urine with no bacteria and >30 WBCs. Empirically treating for CAUTI at this time -no fevers, chills or pelvic pain was noted. UTI - Rocephin, adjust per culture results - gentle IVF CHRONIC URINARY INCONTINENCE s/p prostatectomy -had a stimulator placed in the past but this quit working recently -[facility] recommended indefinite Arita to manage the incontinence, however, Dr. Esposito disagrees with that management -with urethral irritation, she recommends removing it and the patient agrees with this. -DC arita and follow-up with Urology as outpatient CHRONIC DIASTOLIC CHF - appears euvolemic - holding diuretics -stopped IVF given overnight as patient is eating CAD - holding ASA due to hematuria HYPOTHYROIDISM - continue levothyroxine DVT PROPHYLAXIS SCDs/heparin drip CODE STATUS: DNR Mari Hernandez DO [facility] Hospitalist Current Inpatient Medications: Current Inpatient Medications Medications (Trade) Dose Ordered Sig/Amilcar Route Start Time Stop Time Status Last Admin Dose Admin Acetaminophen (Tylenol Tab) 650 mg Q4H PRN PO 03/27/16 15:15 04/26/16 15:14 03/28/16 08:18 650 MG Ondansetron HCl (Zofran Inj) 4 mg Q6H PRN IV 03/27/16 15:15 04/26/16 15:14 Albuterol/ Ipratropium (Duoneb) 3 ml QIDR INH 03/27/16 16:00 04/26/16 15:59 03/28/16 07:36 3 ML Nystatin (Mycostatin Powder) 1 appln BID EXT 03/27/16 20:00 04/26/16 20:59 03/27/16 19:28 1 APPLN Ioversol 125 ml 125 ml UD PRN IV 03/27/16 16:15 03/31/16 16:14 Ceftriaxone Sodium/Dextrose (Rocephin Inj/ Dextrose Add-[place] 50ML) 50 ml @ 100 mls/hr Q24H IV 03/28/16 14:00 04/05/16 14:29 Cholecalciferol (Vitamin D Tab) 1,000 inter.unit DAILY PO 03/28/16 08:00 04/27/16 08:59 03/28/16 08:17 1,000 INTER.UNIT Levothyroxine Sodium (Synthroid Tab) 75 mcg DAILYBB PO 03/28/16 06:30 04/27/16 08:59 03/28/16 06:20 75 MCG Oxybutynin Chloride (Ditropan-Xl Tab) 10 mg DAILY PO 03/28/16 08:00 04/27/16 08:59 03/28/16 08:17 10 MG Pantoprazole Sodium (Protonix Tab) 40 mg BID PO 03/27/16 20:00 04/26/16 20:59 03/28/16 08:17 40 MG Senna/Docusate Sodium (Senokot S Tab) 1 tab HS PO 03/27/16 21:00 04/26/16 20:59 03/27/16 19:31 1 TAB Sertraline HCl (Zoloft Tab) 50 mg DAILY PO 03/28/16 08:00 04/27/16 08:59 03/28/16 08:17 50 MG Ferrous Sulfate 325 mg 325 mg DAILY PO 03/28/16 08:00 04/27/16 08:59 03/28/16 08:17 325 MG Sodium Chloride 1,000 ml @ 80 mls/hr [id number] IV 03/27/16 17:45 04/26/16 17:44 03/28/16 06:20 80 MLS/HR Heparin Sodium/ Dextrose (Heparin 25,000 Unit/500ml D5W) 500 ml @ 23 mls/hr [id number] PRN IV 03/27/16 22:45 04/26/16 22:44 03/28/16 06:22 23 MLS/HR Warfarin Sodium (Coumadin Tab) 5 mg DAILY@16 PO 03/28/16 16:00 04/27/16 15:59
[2016-03-28] MEDS ORDERED: MELATAB2 PO (11:50)
[2016-03-28] MEDS ORDERED: LATA0.5S OPL (11:50)
--- NOTE | 2016-03-28 12:01 | Clinical Documentation Query ---
HILARY Caballero : CLINICAL DOCUMENTATION QUERY Patient is an 86 year old male admitted for SOB and UTI. Noted to have had indwelling urethral catheter placed about a month ago for urinary incontinence. If appropriate, consider clarification as suggested below as this directly affects DRG assignment. In your clinical opinion is this patient being managed for: ( ) UTI due to indwelling Rothman catheter ( x ) Other explanation of clinical findings Bacteriuria 2/2 contamination ( ) Unable to determine (Please Define) ( ) Need to Discuss ( ) Not Agree The medical record reflects the following clinical findings, treatment, and risk factors. Clinical Indicators: As above Treatment: Rocephin, IVF, cultures Risk Factors: Indwelling Rothman catheter Please clarify and document your clinical opinion in the progress notes and discharge summary. Terms such as "probable", "suspected", "likely", "questionable", "possible", or "still to be ruled out" are acceptable. IF IN AGREEMENT, YOU MUST DOCUMENT ABOVE DIAGNOSTIC STATEMENT IN DAILY PROGRESS NOTES AND DISCHARGE SUMMARY. This document is not part of the patient's record. Thank You, Trenton Roa, RN [phone]
[2016-03-28 12:31] LABS: PARTIAL THROMBOPLASTIN RATIO 2.1
[2016-03-28] MEDS: CEFTRIAXONE SOD INJ 1 GM in DEXTROSE 5% ADD-VANTAGE 50ML 50 ML IV SCH (14:29)
[2016-03-28 15:10] VITALS: BP 115/72; PULSE 72; TEMP 36.8; O2SAT 98
[2016-03-28 15:26] VITALS: PULSE 69; O2SAT 92
[2016-03-28] MEDS: WARFARIN SOD 5 MG TAB PO SCH (16:12)
--- NOTE | 2016-03-28 19:46 | Medical Consult ---
Consultation Date of Consultation: Mar 28, 2016. Attending Physician: Mari Hernandez DO Reason for Consultation: pulmonary embolism History of Present Illness 86 year old man who presented to ER with shortness of breath, He states he was having some discomfort from his arita catheter at home. He denies any cough or hemoptysis. He denies any melena or hematochezia. He had a small amount of blood in his arita catheter when he was admitted. He denies any fevers or chills or sweats or chest pain or dizziness or syncope or falls or bruising. He denies any recent surgery or prolonged immobility. He does not know of prior history of blood clots but states he felt very short of breath yesterday but feels better today. He had a d dimer that was elevated at 8140. He had bilateral venous doppler which did not show any evidence of DVT. He had a CT chest which showed thin linear central filling defects RLL pulmonary artery, age indeterminate but suggest chronic PE. He had decreased O2 sat to as low as 91% and had required supplemental O2 on admission. He states that he is feeling significantly improved now. He is on heparin gtt. He had a CT scan abdomen/pelvis which showed small renal lesion concerning for renal cell carcinoma. Urology has seen patient. Past Medical/Surgical History PMH/PSH: hypertension, hypothyroidism, dyslipidemia, anxiety, CAD, CKD, diastolic CHF, prostate cancer, duodenal ulcer repair prostatectomy, inguinal hernia repair, carotid endarterectomy, appendectomy Medical Problems: (1) Abdominal pain Status: Acute (2) Candidal intertrigo Status: Acute (3) Intertrigo Status: Acute Family History Hypertension Social History Smoking Status: Former Smoker Alcohol Use: none Drug Use: none Marital Status: Housing Status: lives with significant other Occupation Status: retired Allergies Coded Allergies: No Known Allergies (Unverified , 03/27/16) Current Inpatient Medications Current Inpatient Medications Medications (Trade) Dose Ordered Sig/Amilcar Route Start Time Stop Time Status Last Admin Dose Admin Acetaminophen (Tylenol Tab) 650 mg Q4H PRN PO 03/27/16 15:15 04/26/16 15:14 03/28/16 08:18 650 MG Ondansetron HCl (Zofran Inj) 4 mg Q6H PRN IV 03/27/16 15:15 04/26/16 15:14 Albuterol/ Ipratropium (Duoneb) 3 ml QIDR INH 03/27/16 16:00 04/26/16 15:59 03/28/16 15:26 3 ML Nystatin (Mycostatin Powder) 1 appln BID EXT 03/27/16 20:00 04/26/16 20:59 03/28/16 11:30 1 APPLN Ioversol 125 ml 125 ml UD PRN IV 03/27/16 16:15 03/31/16 16:14 Ceftriaxone Sodium/Dextrose (Rocephin Inj/ Dextrose Add-[place] 50ML) 50 ml @ 100 mls/hr Q24H IV 03/28/16 14:00 04/05/16 14:29 03/28/16 14:29 100 MLS/HR Cholecalciferol (Vitamin D Tab) 1,000 inter.unit DAILY PO 03/28/16 08:00 04/27/16 08:59 03/28/16 08:17 1,000 INTER.UNIT Levothyroxine Sodium (Synthroid Tab) 75 mcg DAILYBB PO 03/28/16 06:30 04/27/16 08:59 03/28/16 06:20 75 MCG Oxybutynin Chloride (Ditropan-Xl Tab) 10 mg DAILY PO 03/28/16 08:00 04/27/16 08:59 03/28/16 08:17 10 MG Pantoprazole Sodium (Protonix Tab) 40 mg BID PO 03/27/16 20:00 04/26/16 20:59 03/28/16 08:17 40 MG Senna/Docusate Sodium (Senokot S Tab) 1 tab HS PO 03/27/16 21:00 04/26/16 20:59 03/27/16 19:31 1 TAB Sertraline HCl (Zoloft Tab) 50 mg DAILY PO 03/28/16 08:00 04/27/16 08:59 03/28/16 08:17 50 MG Ferrous Sulfate 325 mg 325 mg DAILY PO 03/28/16 08:00 04/27/16 08:59 03/28/16 08:17 325 MG Heparin Sodium/ Dextrose (Heparin 25,000 Unit/500ml D5W) 500 ml @ 23 mls/hr [id number] PRN IV 03/27/16 22:45 04/26/16 22:44 03/28/16 06:22 23 MLS/HR Warfarin Sodium (Coumadin Tab) 5 mg DAILY@16 PO 03/28/16 16:00 04/27/16 15:59 03/28/16 16:12 5 MG Latanoprost (Xalatan Oph Soln) 1 drops HS OPL 03/28/16 22:00 04/27/16 21:59 Review of Systems Constitutional: No chills, No fatigue, No fever, No weight loss ENT: + hearing loss, No sore throat, No unusual epistaxis Respiratory: + dyspnea on exertion (now feels improved), + shortness of breath (states none at present, feels improved), No cough, No hemoptysis, No sputum, No wheezing Cardiovascular: No chest pain, No edema, No palpitations Abdomen: No GI bleeding, No constipation, No diarrhea, No nausea, No pain, No vomiting Neurologic: No numbness/tingling, No vertigo, No weakness Hematologic / Lymphatic: No night sweats, No swollen lymph nodes Physical Exam Date Time Temp Pulse Resp B/P Pulse Ox O2 Delivery O2 Flow Rate FiO2 03/28/16 15:30 Room Air 03/28/16 15:26 69 16 92 Nasal Cannula 1.0 03/28/16 15:10 36.8 72 20 115/72 98 Room Air 03/28/16 08:00 36.5 61 20 96/48 95 Room Air 113/70 03/28/16 08:00 Room Air 03/28/16 07:33 72 16 93 Nasal Cannula 1.0 03/28/16 00:16 36.6 72 20 111/72 92 2.0 03/28/16 00:00 Nasal Cannula 2.0 03/27/16 20:00 Nasal Cannula 2.0 General: well developed well nourished male in no acute distress HEENT: anicteric no pallor moist buccal mucosa Neck: no JVD, supple no palpable adenopathy Lungs: CTAB CV: S1 S2 Regular rate and rhythm Abdomen: bowel sounds present soft nontender and nondistended Ext: no edema nontender Neuro: awake and alert and oriented Follows simple commands, grossly nonfocal Psych: mood and affect appropriate Laboratory Results Last 24 Hours Test 03/27/16 20:00 03/27/16 21:31 03/28/16 03:08 03/28/16 05:26 Urine Color YELLOW Urine Appearance CLEAR Urine pH 5.0 Urine Specific [place] > 1.045 Urine Protein NEG Urine Glucose (UA) NEG Urine Ketones NEG Urine Occult Blood 1+ Urine Nitrite NEG Urine Bilirubin NEG Urine Urobilinogen NEG Urine Leukocyte Esterase MODERATE Urine WBC (Auto) >30 /hpf Urine RBC (Auto) 0-4 /hpf Urine Hyaline Casts (Auto) 1-5 /lpf Urine Epithelial Cells (Auto) 0-5 /lpf Urine Bacteria (Auto) NEG Prothrombin Time 10.9 SECONDS Prothromb Time International Ratio 1.0 Activated Partial Thromboplast Time 25.9 SECONDS 33.8 SECONDS Partial Thromboplastin Ratio 1.0 1.3 White Blood Count 6.23 K/uL Red Blood Count 3.69 M/uL Hemoglobin 10.9 g/dL Hematocrit 33.5 % Mean Corpuscular Volume 90.8 fL Mean Corpuscular Hemoglobin 29.5 pg Mean Corpuscular Hemoglobin Concent 32.5 g/dl RDW Standard Deviation 50.6 fL RDW Coefficient of Variation 15.1 % Platelet Count 174 K/uL Mean Platelet Volume 10.8 fL Sodium Level 139 mmol/L Potassium Level 4.4 mmol/L Chloride Level 102 mmol/L Carbon Dioxide Level 30 mmol/L Anion Gap 7.0 mmol/L Blood Urea Nitrogen 34 mg/dl Creatinine 1.40 mg/dl Est Creatinine Clear Calc Drug Dose 44.7 ml/min Estimated GFR () 51.6 Estimated GFR (Non- 44.5 BUN/Creatinine Ratio 24.0 Random Glucose 125 mg/dl Calcium Level 8.5 mg/dl Test 03/28/16 12:04 Activated Partial Thromboplast Time 54.7 SECONDS Partial Thromboplastin Ratio 2.1 Prostate Specific Antigen < 0.010 ng/ml Assessment & Plan 86 year old male admitted with shortness of breath and elevated D dimer. CT scan chest PE protocol suggestive of age indeterminate but likely chronic PE Agree with anticoagulation and heparin drip at this time with transition to coumadin but he will need to be followed closely for his INRs - would recommend keep goal INR on lower end 2 to 2.5. He is on PPI. Recommend pulmonary evaluation for workup to rule out any other etiology of his hypoxia/ acute shortness of breath and chronic PE since findings on his CT scan are not clearly acute. Will check a limited hypercoagulable workup - patient currently on anticoagulation, factor V leiden and prothrombin gene mutation cardiolipin antibody IgG and IgM and homocysteine Continue follow up with urology - renal lesion concerning for renal cell carcinoma on his ct abdomen, history of prostate cancer Discussed with Dr Hernandez Thank you for allowing me to participate in the care of this patient
[2016-03-28] MEDS: DOCUSATE SODIUM/SENNA 50/8.6MG TAB PO SCH (20:21)
[2016-03-28] MEDS: LATANOPROST 0.005% OP SOLN 2.5 ML BTL OPL SCH (20:29)
[2016-03-28 21:31] LABS: TOTAL IRON BINDING CAPACITY 271 mcg/dl (250-450)
[2016-03-28] MEDS ORDERED: NON-FORMULARY MEDICATION (Melatonin (Melatonin Maximum Strengt) 1 TAB) PO SCH (22:00)
[2016-03-29] VITALS (7 sets, daily range): BP systolic 117–147; BP diastolic 70–77; PULSE 51–80; TEMP 36.5–36.7; O2SAT 92–96
[2016-03-29] MEDS: ACETAMINOPHEN 325 MG TAB PO PRN ×2 (03:32→08:07)
[2016-03-29] MEDS: LEVOTHYROXINE 75 MCG TAB PO SCH (05:48)
[2016-03-29 06:39] LABS: HEMATOCRIT 33.8 % (42-52); MEAN CELL VOLUME 90.4 fL (80-100); MEAN CORPUSCULAR HEMOGLOBIN 29.9 pg (25-34); MEAN CORPUSCULAR HGB CONC 33.1 g/dl (32-36); MEAN PLATELET VOLUME 10.4 fL (7.4-10.4); PLATELET COUNT 168 K/uL (130-400); RED BLOOD COUNT 3.74 M/uL (4.7-6.1); WHITE BLOOD COUNT 6.83 K/uL (4.8-10.8)
[2016-03-29 06:47] LABS: INR 1.1 (0.9-1.1); PARTIAL THROMBOPLASTIN RATIO 1.6; PROTHROMBIN TIME (PATIENT) 11.4 SECONDS (9.0-12.0)
[2016-03-29] MEDS: ALBUT/IPRATROP 3MG/0.5MG NEB 3 ML VIAL INH SCH ×3 (07:28→15:18)
[2016-03-29] MEDS: NYSTATIN POWDER 15GM BTL EXT SCH ×2 (08:08→20:32)
[2016-03-29] MEDS: OXYBUTYNIN CHLORIDE 5 MG TABCR PO SCH (08:08)
[2016-03-29] MEDS: SERTRALINE HCL 50 MG TAB PO SCH (08:09)
[2016-03-29] MEDS: FERROUS SULFATE 325 MG TAB PO SCH (08:09)
[2016-03-29] MEDS: PANTOprazole SOD 40 MG TAB PO SCH ×2 (08:09→20:33)
[2016-03-29] MEDS: CHOLECALCIFEROL 1000 INTER.UNIT TAB PO SCH (08:09)
[2016-03-29] MEDS ORDERED: HEPARIN IV BOLUS 3,000 UNIT in SYRINGE 0 ML IV SCH (08:30)
[2016-03-29] MEDS ORDERED: NURSING VERBAL MED ORDER ONE (10:30)
[2016-03-29] MEDS ORDERED: MoRPHine SULFATE 2 MG/ML CARP IV PRN (10:45)
[2016-03-29] MEDS: HYDROCODONE/ACETAMOPHEN 5/325MG TAB PO PRN (10:52)
[2016-03-29] MEDS: CEFTRIAXONE SOD INJ 1 GM in DEXTROSE 5% ADD-VANTAGE 50ML 50 ML IV SCH (14:20)
[2016-03-29 15:10] LABS: PARTIAL THROMBOPLASTIN RATIO 2.2
[2016-03-29] MEDS: WARFARIN SOD 5 MG TAB PO SCH (15:58)
[2016-03-29] MEDS ORDERED: ALBUT/IPRATROP 3MG/0.5MG NEB 3 ML VIAL INH PRN (16:23)
[2016-03-29] MEDS: HEPARIN 25,000 UNIT/500ML D5W 500 ML IV PRN (18:02)
[2016-03-29] MEDS: DOCUSATE SODIUM/SENNA 50/8.6MG TAB PO SCH (20:33)
[2016-03-29] MEDS: LATANOPROST 0.005% OP SOLN 2.5 ML BTL OPL SCH (20:33)
[2016-03-29 21:35] LABS: PARTIAL THROMBOPLASTIN RATIO 1.9
--- NOTE | 2016-03-29 22:12 | Progress Note ---
Medicine Progress Note Date & Time of Visit: Mar 29, 2016 at 15:42. Subjective Pt feeling well today Mentions that he has an achy pain that is minor in his groin region. Non- radiating On exam it is in the soft tissue just over the pubic symphysis and off to the left side Made better with Jaroso reviewed CT a/p from day prior and no structural abnormality in this area except for surgically absent prostate Denies chest pain, shortness of breath Has incontinence with the Arita out but feels much better Spoke with he and the son regarding length of stay and plan with warfarin Expressed frustration that he was going to need to stay in the hospital Objective Last 8 Hrs Date Time Temp Pulse Resp B/P Pulse Ox O2 Delivery O2 Flow Rate FiO2 03/29/16 15:18 80 16 95 Room Air 03/29/16 15:01 36.5 63 20 147/75 92 Room Air 03/29/16 13:33 74 94 03/29/16 08:00 Room Air 03/29/16 07:50 36.7 53 22 117/76 95 Room Air Physical Exam: GEN: WNWD, in no acute distress, alert and appropriate but defers history to son HEENT: NC/AT, normal sclerae CARDIO: reg rate, S1/2 heard without m/g/r LUNGS: CTA bilaterally, no crackles, rales or wheezes, good diaphragmatic excursion ABD: soft, non-tender, non-distended, no rebound or guarding, +BS : sore spot in pubic area just superior to pubic symphysis and off to the left , no nodules or obvious reason for the pain, no pain in L hip EXTREMITY: RP and DP palpable 2+ bilat, no LE swelling or edema, extremities are warm and well-perfused N/M: moves all extremities equally, no gross focal deficits SKIN: warm and dry and as above. Laboratory Results: Last 24 Hours Test 03/28/16 20:31 03/29/16 06:12 03/29/16 14:39 03/29/16 15:28 Iron Level 47 mcg/dl Total Iron Binding Capacity 271 mcg/dl Vitamin B12 Level 487 pg/mL Folate 8.76 ng/mL White Blood Count 6.83 K/uL Red Blood Count 3.74 M/uL Hemoglobin 11.2 g/dL Hematocrit 33.8 % Mean Corpuscular Volume 90.4 fL Mean Corpuscular Hemoglobin 29.9 pg Mean Corpuscular Hemoglobin Concent 33.1 g/dl RDW Standard Deviation 51.1 fL RDW Coefficient of Variation 15.4 % Platelet Count 168 K/uL Mean Platelet Volume 10.4 fL Prothrombin Time 11.4 SECONDS Prothromb Time International Ratio 1.1 Activated Partial Thromboplast Time 42.8 SECONDS 58.2 SECONDS Partial Thromboplastin Ratio 1.6 2.2 Assessment & Plan SHORTNESS OF BREATH w/HYPOXIA 2/2 acute pulmonary embolus -hypoxia and SOB have resolved -on heparin drip bridge with warfarin -uncertain cause--poss malignancy? PSA 0 in setting of prior h/o prostate CA, uncertain when last cscope was (gets most of care at [facility]), and last hospitalization was last year at [facility] -will plan to start warfarin today for goal INR 2-3 and bridge with heparin as the patient was acutely short of breath yesterday requiring oxygen -however, because this appears chronic, will have Heme Onc weigh in on if they think this needs treatment. -understanding from son is that the patient is not a fall risk - CXR without infiltrate or CHF, clear lungs on exam, no h/o coughing -BL LE dopplers are negative HEMATURIA, RENAL LESIONS - CT abd/pelvis concerning for possible small cell renal carcinoma -per Urology no further imaging or workup is required at this time. - apparently hematuria is from Arita trauma. no hematuria noted currently -no fevers, chills or pelvic pain was noted. BACTERURIA -UCx reveals coag neg staph, likely a contaminant -repeat UA and UCx -cont Rocephin for now, pt is a poor historian but no UTI symptoms in setting of chronic incontinence CHRONIC URINARY INCONTINENCE s/p prostatectomy -had a stimulator placed in the past but this quit working recently -[facility] recommended indefinite Arita to manage the incontinence, however, Dr. Esposito disagrees with that management -with urethral irritation, she recommends removing it and the patient agrees with this. -DC arita and follow-up with Urology as outpatient CHRONIC DIASTOLIC CHF - appears euvolemic - holding diuretics -stopped IVF given overnight as patient is eating CAD - holding ASA due to hematuria HYPOTHYROIDISM - continue levothyroxine DVT PROPHYLAXIS SCDs/heparin drip CODE STATUS: DNR Mariearl Hernandez DO [facility] Hospitalist Current Inpatient Medications: Current Inpatient Medications Medications (Trade) Dose Ordered Sig/Amilcar Route Start Time Stop Time Status Last Admin Dose Admin Acetaminophen (Tylenol Tab) 650 mg Q4H PRN PO 03/27/16 15:15 04/26/16 15:14 03/29/16 08:07 650 MG Ondansetron HCl (Zofran Inj) 4 mg Q6H PRN IV 03/27/16 15:15 04/26/16 15:14 Albuterol/ Ipratropium (Duoneb) 3 ml QIDR INH 03/27/16 16:00 04/26/16 15:59 03/29/16 15:18 3 ML Nystatin (Mycostatin Powder) 1 appln BID EXT 03/27/16 20:00 04/26/16 20:59 03/29/16 08:08 1 APPLN Ioversol 125 ml 125 ml UD PRN IV 03/27/16 16:15 03/31/16 16:14 Ceftriaxone Sodium/Dextrose (Rocephin Inj/ Dextrose Add-[place] 50ML) 50 ml @ 100 mls/hr Q24H IV 03/28/16 14:00 04/05/16 14:29 03/29/16 14:20 100 MLS/HR Cholecalciferol (Vitamin D Tab) 1,000 inter.unit DAILY PO 03/28/16 08:00 04/27/16 08:59 03/29/16 08:09 1,000 INTER.UNIT Levothyroxine Sodium (Synthroid Tab) 75 mcg DAILYBB PO 03/28/16 06:30 04/27/16 08:59 03/29/16 05:48 75 MCG Oxybutynin Chloride (Ditropan-Xl Tab) 10 mg DAILY PO 03/28/16 08:00 04/27/16 08:59 03/29/16 08:08 10 MG Pantoprazole Sodium (Protonix Tab) 40 mg BID PO 03/27/16 20:00 04/26/16 20:59 03/29/16 08:09 40 MG Senna/Docusate Sodium (Senokot S Tab) 1 tab HS PO 03/27/16 21:00 04/26/16 20:59 03/28/16 20:21 1 TAB Sertraline HCl (Zoloft Tab) 50 mg DAILY PO 03/28/16 08:00 04/27/16 08:59 03/29/16 08:09 50 MG Ferrous Sulfate 325 mg 325 mg DAILY PO 03/28/16 08:00 04/27/16 08:59 03/29/16 08:09 325 MG Heparin Sodium/ Dextrose (Heparin 25,000 Unit/500ml D5W) 500 ml @ 25 mls/hr Q20H PRN IV 03/27/16 22:45 04/26/16 22:44 03/28/16 22:40 23 MLS/HR Warfarin Sodium (Coumadin Tab) 5 mg DAILY@16 PO 03/28/16 16:00 04/27/16 15:59 03/28/16 16:12 5 MG Latanoprost (Xalatan Oph Soln) 1 drops HS OPL 03/28/16 22:00 04/27/16 21:59 03/28/16 20:29 1 DROPS Acetaminophen/ Hydrocodone Bitart ([place] 5/325 Tab) 1 tab Q6 PRN PO 03/29/16 10:45 04/12/16 10:44 03/29/16 10:52 1 TAB Morphine Sulfate (MoRPHine SULFATE INJ) 2 mg Q4 PRN IV 03/29/16 10:45 04/12/16 10:44
[2016-03-30 00:20] VITALS: BP 161/89; PULSE 74; TEMP 36.7; O2SAT 92
[2016-03-30] MEDS: LEVOTHYROXINE 75 MCG TAB PO SCH (06:22)
[2016-03-30] MEDS: OXYBUTYNIN CHLORIDE 5 MG TABCR PO SCH (07:53)
[2016-03-30] MEDS: PANTOprazole SOD 40 MG TAB PO SCH ×2 (07:53→21:04)
[2016-03-30] MEDS: FERROUS SULFATE 325 MG TAB PO SCH (07:53)
[2016-03-30] MEDS: NYSTATIN POWDER 15GM BTL EXT SCH ×2 (07:53→21:03)
[2016-03-30] MEDS: CHOLECALCIFEROL 1000 INTER.UNIT TAB PO SCH (07:54)
[2016-03-30] MEDS: SERTRALINE HCL 50 MG TAB PO SCH (07:54)
[2016-03-30 08:22] LABS: INR 1.3 (0.9-1.1); PARTIAL THROMBOPLASTIN RATIO 1.8; PROTHROMBIN TIME (PATIENT) 13.8 SECONDS (9.0-12.0)
[2016-03-30 08:25] VITALS: BP 155/76; PULSE 69; TEMP 36.4; O2SAT 91
[2016-03-30 10:03] LABS: MANUAL MICROSCOPIC REQUIRED? NO; REVIEW REQ? NO; URINE APPEARANCE CLEAR (CLEAR); URINE BILIRUBIN NEG (NEG); URINE COLOR YELLOW; URINE NITRITE NEG (NEG); URINE PH 7.5 (4.5-7.5); URINE SPECIFIC GRAVITY 1.012 (1.000-1.030); UROBILINOGEN NEG (NEG)
[2016-03-30] MEDS ORDERED: ZOLPIDEM TARTRATE 5 MG TAB PO PRN (10:30)
[2016-03-30] MEDS: CEFTRIAXONE SOD INJ 1 GM in DEXTROSE 5% ADD-VANTAGE 50ML 50 ML IV SCH (14:10)
[2016-03-30] MEDS: HEPARIN 25,000 UNIT/500ML D5W 500 ML IV PRN (14:42)
[2016-03-30 15:49] VITALS: BP 120/71; PULSE 67; TEMP 36.6; O2SAT 93
[2016-03-30] MEDS: WARFARIN SOD 5 MG TAB PO SCH (16:36)
[2016-03-30] MEDS: LATANOPROST 0.005% OP SOLN 2.5 ML BTL OPL SCH (21:04)
[2016-03-30] MEDS: DOCUSATE SODIUM/SENNA 50/8.6MG TAB PO SCH (21:04)
[2016-03-30 23:17] VITALS: BP 156/82; PULSE 65; TEMP 36.6; O2SAT 96
--- NOTE | 2016-03-30 23:33 | Progress Note ---
Medicine Progress Note Date & Time of Visit: Mar 30, 2016 at 10:40. Subjective Feels well overnight Groin pain has resolved Incontinence persists Pt asking for diaper; we discussed condom cath Denies chest pain, SOB or UTI symptoms at this time Son at bedside and we discussed the plan in depth again. -try condom cath for comfort -if issue then request diapers when he walks -wants to shave -INR 1.3 today -wants to ambulate more 2hrs sleep overnight--takes melatonin at home and says it doesn't work--trial coni [place] Objective Last 8 Hrs Date Time Temp Pulse Resp B/P Pulse Ox O2 Delivery O2 Flow Rate FiO2 03/30/16 08:25 36.4 69 18 155/76 91 Room Air Physical Exam: GEN: WNWD, in no acute distress, alert and appropriate but defers history to son HEENT: NC/AT, normal sclerae CARDIO: reg rate, S1/2 heard without m/g/r LUNGS: CTA bilaterally, no crackles, rales or wheezes, good diaphragmatic excursion ABD: soft, non-tender, non-distended, no rebound or guarding, +BS, no CVA tenderness EXTREMITY: no LE swelling or edema, extremities are warm and well-perfused N/M: moves all extremities equally, no gross focal deficits SKIN: warm and dry and as above. Laboratory Results: Last 24 Hours Test 03/29/16 14:39 03/29/16 20:35 03/30/16 07:46 03/30/16 09:00 Activated Partial Thromboplast Time 58.2 SECONDS 49.9 SECONDS 46.9 SECONDS Partial Thromboplastin Ratio 2.2 1.9 1.8 Prothrombin Time 13.8 SECONDS Prothromb Time International Ratio 1.3 Urine Color YELLOW Urine Appearance CLEAR Urine pH 7.5 Urine Specific [place] 1.012 Urine Protein NEG Urine Glucose (UA) NEG Urine Ketones NEG Urine Occult Blood NEG Urine Nitrite NEG Urine Bilirubin NEG Urine Urobilinogen NEG Urine Leukocyte Esterase NEG Date/Time Source Procedure Growth Status 03/30/16 09:00 Urine , Clean Catch Urine Culture Pending Received Assessment & Plan SHORTNESS OF BREATH w/HYPOXIA 2/2 acute pulmonary embolus -hypoxia and SOB have resolved -on heparin drip bridge with warfarin INR 1.3 today -uncertain cause--poss malignancy? PSA 0 in setting of prior h/o prostate CA, uncertain when last cscope was (gets most of care at [facility]), and last hospitalization was a few months ago where patient had a major surgery for a GI bleed -cont warfarin for goal INR 2-3 and bridge with heparin as the patient was acutely short of breath yesterday requiring oxygen -however, because this appears chronic, will have Heme Onc weigh in on if they think this needs treatment. -Heme agrees with this plan - CXR without infiltrate or CHF, clear lungs on exam, no h/o coughing -BL LE dopplers are negative INSOMNIA -reports maltonin taken at home doesn't work well and he would like to try something else -trial of Ambien ordered for tonight HEMATURIA, RENAL LESIONS - CT abd/pelvis concerning for possible small cell renal carcinoma -per Urology no further imaging or workup is required at this time. - apparently hematuria is from Arita trauma. no hematuria noted currently -no fevers, chills or pelvic pain was noted. BACTERURIA -UCx reveals coag neg staph, likely a contaminant and patient is asymptomatic -repeat UA and UCx -cont Rocephin for now, pt is a poor historian but no UTI symptoms in setting of chronic incontinence CHRONIC URINARY INCONTINENCE s/p prostatectomy -had a stimulator placed in the past but this quit working recently -[place] [facility] recommended indefinite Arita to manage the incontinence, however, Dr. Esposito disagrees with that management -with urethral irritation, she recommends removing it and the patient agrees with this. -DC arita and follow-up with Urology as outpatient CHRONIC DIASTOLIC CHF - appears euvolemic - holding diuretics -stopped IVF given overnight as patient is eating CAD - holding ASA due to hematuria HYPOTHYROIDISM - continue levothyroxine DVT PROPHYLAXIS SCDs/heparin drip CODE STATUS: DNR DO [facility] Current Inpatient Medications: Current Inpatient Medications Medications (Trade) Dose Ordered Sig/Amilcar Route Start Time Stop Time Status Last Admin Dose Admin Acetaminophen (Tylenol Tab) 650 mg Q4H PRN PO 03/27/16 15:15 04/26/16 15:14 03/29/16 08:07 650 MG Ondansetron HCl (Zofran Inj) 4 mg Q6H PRN IV 03/27/16 15:15 04/26/16 15:14 Nystatin (Mycostatin Powder) 1 appln BID EXT 03/27/16 20:00 04/26/16 20:59 03/30/16 07:53 1 APPLN Ioversol 125 ml 125 ml UD PRN IV 03/27/16 16:15 03/31/16 16:14 Ceftriaxone Sodium/Dextrose (Rocephin Inj/ Dextrose Add-[place] 50ML) 50 ml @ 100 mls/hr Q24H IV 03/28/16 14:00 04/05/16 14:29 03/29/16 14:20 100 MLS/HR Cholecalciferol (Vitamin D Tab) 1,000 inter.unit DAILY PO 03/28/16 08:00 04/27/16 08:59 03/30/16 07:54 1,000 INTER.UNIT Levothyroxine Sodium (Synthroid Tab) 75 mcg DAILYBB PO 03/28/16 06:30 04/27/16 08:59 03/30/16 06:22 75 MCG Oxybutynin Chloride (Ditropan-Xl Tab) 10 mg DAILY PO 03/28/16 08:00 04/27/16 08:59 03/30/16 07:53 10 MG Pantoprazole Sodium (Protonix Tab) 40 mg BID PO 03/27/16 20:00 04/26/16 20:59 03/30/16 07:53 40 MG Senna/Docusate Sodium (Senokot S Tab) 1 tab HS PO 03/27/16 21:00 04/26/16 20:59 03/29/16 20:33 1 TAB Sertraline HCl (Zoloft Tab) 50 mg DAILY PO 03/28/16 08:00 04/27/16 08:59 03/30/16 07:54 50 MG Ferrous Sulfate 325 mg 325 mg DAILY PO 03/28/16 08:00 04/27/16 08:59 03/30/16 07:53 325 MG Heparin Sodium/ Dextrose (Heparin 25,000 Unit/500ml D5W) 500 ml @ 25 mls/hr Q20H PRN IV 03/27/16 22:45 04/26/16 22:44 03/29/16 18:02 25 MLS/HR Warfarin Sodium (Coumadin Tab) 5 mg DAILY@16 PO 03/28/16 16:00 04/27/16 15:59 03/29/16 15:58 5 MG Latanoprost (Xalatan Oph Soln) 1 drops HS OPL 03/28/16 22:00 04/27/16 21:59 03/29/16 20:33 1 DROPS Acetaminophen/ Hydrocodone Bitart ([place] 5/325 Tab) 1 tab Q6 PRN PO 03/29/16 10:45 04/12/16 10:44 03/29/16 10:52 1 TAB Morphine Sulfate (MoRPHine SULFATE INJ) 2 mg Q4 PRN IV 03/29/16 10:45 04/12/16 10:44 Albuterol/ Ipratropium (Duoneb) 3 ml QID PRN INH 03/29/16 16:23 04/28/16 16:22 Zolpidem Tartrate (Ambien Tab) 5 mg HS PRN PO 03/30/16 10:30 04/29/16 10:29 UNV
[2016-03-31] MEDS: LEVOTHYROXINE 75 MCG TAB PO SCH (06:02)
[2016-03-31 07:50] LABS: HEMATOCRIT 36.2 % (42-52); MEAN CELL VOLUME 89.2 fL (80-100); MEAN CORPUSCULAR HEMOGLOBIN 29.8 pg (25-34); MEAN CORPUSCULAR HGB CONC 33.4 g/dl (32-36); MEAN PLATELET VOLUME 10.5 fL (7.4-10.4); PLATELET COUNT 175 K/uL (130-400); RED BLOOD COUNT 4.06 M/uL (4.7-6.1); WHITE BLOOD COUNT 6.53 K/uL (4.8-10.8)
[2016-03-31 08:10] LABS: INR 1.7 (0.9-1.1); PROTHROMBIN TIME (PATIENT) 18.1 SECONDS (9.0-12.0)
[2016-03-31 08:12] VITALS: BP 97/63; PULSE 63; TEMP 36.4; O2SAT 90
[2016-03-31] MEDS: OXYBUTYNIN CHLORIDE 5 MG TABCR PO SCH (09:12)
[2016-03-31] MEDS: NYSTATIN POWDER 15GM BTL EXT SCH ×2 (09:12→21:33)
[2016-03-31] MEDS: PANTOprazole SOD 40 MG TAB PO SCH ×2 (09:13→21:34)
[2016-03-31] MEDS: SERTRALINE HCL 50 MG TAB PO SCH (09:13)
[2016-03-31] MEDS: FERROUS SULFATE 325 MG TAB PO SCH (09:13)
[2016-03-31] MEDS: POLYETHYLENE (MIRALAX) 17 GM PACK PO SCH (09:13)
[2016-03-31] MEDS: CHOLECALCIFEROL 1000 INTER.UNIT TAB PO SCH (10:22)
[2016-03-31] MEDS: HEPARIN 25,000 UNIT/500ML D5W 500 ML IV PRN (12:00)
[2016-03-31] MEDS: HYDROCODONE/ACETAMOPHEN 5/325MG TAB PO PRN (13:33)
[2016-03-31] MEDS: CEFTRIAXONE SOD INJ 1 GM in DEXTROSE 5% ADD-VANTAGE 50ML 50 ML IV SCH (14:29)
[2016-03-31 15:44] VITALS: BP 114/63; PULSE 58; TEMP 36.3; O2SAT 93
[2016-03-31] MEDS ORDERED: OXYCODONE HCL IR 5 MG TAB (IMMEDIATE RELEASE) PO PRN (16:00)
[2016-03-31] MEDS: WARFARIN SOD 5 MG TAB PO SCH (16:13)
--- NOTE | 2016-03-31 16:19 | Progress Note ---
Medicine Progress Note Date & Time of Visit: Mar 31, 2016 at 13:02. Subjective States he is glad to see me today because he has so many problems going on When asked for details he talked to me about not sleeping last night despite the Ambien 5 Then he also reports pain in his L groin area. However, when I asked him to point to where the pain is exactly, he was unable to find it He then said he guesses that he wasn't having pain now. I asked when it seemed to be the worse and he said at night His nurse, who has had him for a few days, also mentioned it appears to be worse when he has been lying in bed awhile, and lying on that hip. The [place] PRN has been working, however, I suspect an OA flare so I am changing to scheduled APAP with Oxy (plain) for breakthrough He is still incontinent and the [place] catheter yesterday did not work well so he remains in diapers at his request He has been ambulating His INR is coming up and will plan to stay on the same dosage. Son, Mike, was apprised of all new developments by phone. Objective Last 8 Hrs Date Time Temp Pulse Resp B/P Pulse Ox O2 Delivery O2 Flow Rate FiO2 03/31/16 08:12 36.4 63 18 97/63 90 Room Air 03/31/16 08:00 Room Air Physical Exam: GEN: WNWD, in no acute distress, alert and appropriate but hard of hearing HEENT: NC/AT, normal sclerae CARDIO: reg rate, S1/2 heard without m/g/r LUNGS: CTA bilaterally, no crackles, rales or wheezes, good diaphragmatic excursion ABD: soft, non-tender, non-distended, no rebound or guarding, +BS : palpated in groin region and there was no TTP and no nodules were palpable. EXTREMITY: no LE swelling or edema, extremities are warm and well-perfused N/M: moves all extremities equally, no gross focal deficits SKIN: warm and dry and as above. Laboratory Results: Last 24 Hours Test 03/31/16 07:16 White Blood Count 6.53 K/uL Red Blood Count 4.06 M/uL Hemoglobin 12.1 g/dL Hematocrit 36.2 % Mean Corpuscular Volume 89.2 fL Mean Corpuscular Hemoglobin 29.8 pg Mean Corpuscular Hemoglobin Concent 33.4 g/dl RDW Standard Deviation 49.2 fL RDW Coefficient of Variation 15.0 % Platelet Count 175 K/uL Mean Platelet Volume 10.5 fL Prothrombin Time 18.1 SECONDS Prothromb Time International Ratio 1.7 Activated Partial Thromboplast Time 51.4 SECONDS Partial Thromboplastin Ratio 2.0 Assessment & Plan SHORTNESS OF BREATH w/HYPOXIA 2/2 acute pulmonary embolus -hypoxia and SOB have resolved -on heparin drip bridge with warfarin INR 1.3-->1.7 today, cont 5mg PO daily -uncertain cause--poss malignancy? PSA 0 in setting of prior h/o prostate CA, uncertain when last cscope was (gets most of care at [facility]), and last hospitalization was a few months ago where patient had a major surgery for a GI bleed-- -cont warfarin for goal INR 2-3 and bridge with heparin as the patient was acutely short of breath on admission -Heme agrees with plan - CXR without infiltrate or CHF, clear lungs on exam, no h/o coughing -BL LE dopplers are negative INSOMNIA -reports melatonin taken at home doesn't work well and he would like to try something else -trial of Ambien ordered for tonight -5mg did not work so increased to 10mg tonight GROIN/ HIP PAIN: suspect OA ordered xrays of hips ordered scheduled APAP with Oxy (plain) for breakthrough HEMATURIA, RENAL LESIONS -no recurrence of hematuria since admission - CT abd/pelvis concerning for possible small cell renal carcinoma -per Urology no further imaging or workup is required at this time. - apparently hematuria is from Arita trauma. no hematuria noted currently -no fevers, chills or pelvic pain was noted. BACTERURIA -UCx reveals coag neg staph, likely a contaminant and patient is asymptomatic -repeat UA and UCx -cont Rocephin for now, pt is a poor historian but no UTI symptoms in setting of chronic incontinence -with this, will cont Rocephin for a short course in light of unexplained pelvic pain CHRONIC URINARY INCONTINENCE s/p prostatectomy -had a stimulator placed in the past but this quit working recently -[facility] recommended indefinite Arita to manage the incontinence, however, Dr. Esposito disagrees with that management -with urethral irritation, she recommends removing it and the patient agrees with this. -DC arita and follow-up with Urology as outpatient -cont Ditropan CHRONIC DIASTOLIC CHF - appears euvolemic - holding diuretics CAD - holding ASA due to hematuria -will defer to PCP or Dye Colorist Dyer to add this back as outpatient in setting of warfarin which is new and not too distant history of major GI bleeding HYPOTHYROIDISM - continue levothyroxine DVT PROPHYLAXIS SCDs/heparin drip/coumadin CODE STATUS: DNR Mari Hernandez DO [facility] Hospitalist Current Inpatient Medications: Current Inpatient Medications Medications (Trade) Dose Ordered Sig/Amilcar Route Start Time Stop Time Status Last Admin Dose Admin Acetaminophen (Tylenol Tab) 650 mg Q4H PRN PO 03/27/16 15:15 04/26/16 15:14 03/29/16 08:07 650 MG Ondansetron HCl (Zofran Inj) 4 mg Q6H PRN IV 03/27/16 15:15 04/26/16 15:14 Nystatin (Mycostatin Powder) 1 appln BID EXT 03/27/16 20:00 04/26/16 20:59 03/31/16 09:12 1 APPLN Ioversol 125 ml 125 ml UD PRN IV 03/27/16 16:15 03/31/16 16:14 Ceftriaxone Sodium/Dextrose (Rocephin Inj/ Dextrose Add-[place] 50ML) 50 ml @ 100 mls/hr Q24H IV 03/28/16 14:00 04/05/16 14:29 03/30/16 14:10 100 MLS/HR Cholecalciferol (Vitamin D Tab) 1,000 inter.unit DAILY PO 03/28/16 08:00 04/27/16 08:59 03/31/16 10:22 1,000 INTER.UNIT Levothyroxine Sodium (Synthroid Tab) 75 mcg DAILYBB PO 03/28/16 06:30 04/27/16 08:59 03/31/16 06:02 75 MCG Oxybutynin Chloride (Ditropan-Xl Tab) 10 mg DAILY PO 03/28/16 08:00 04/27/16 08:59 03/31/16 09:12 10 MG Pantoprazole Sodium (Protonix Tab) 40 mg BID PO 03/27/16 20:00 04/26/16 20:59 03/31/16 09:13 40 MG Senna/Docusate Sodium (Senokot S Tab) 1 tab HS PO 03/27/16 21:00 04/26/16 20:59 03/30/16 21:04 1 TAB Sertraline HCl (Zoloft Tab) 50 mg DAILY PO 03/28/16 08:00 04/27/16 08:59 03/31/16 09:13 50 MG Ferrous Sulfate 325 mg 325 mg DAILY PO 03/28/16 08:00 04/27/16 08:59 03/31/16 09:13 325 MG Heparin Sodium/ Dextrose (Heparin 25,000 Unit/500ml D5W) 500 ml @ 25 mls/hr Q20H PRN IV 03/27/16 22:45 04/26/16 22:44 03/31/16 12:00 25 MLS/HR Warfarin Sodium (Coumadin Tab) 5 mg DAILY@16 PO 03/28/16 16:00 04/27/16 15:59 03/30/16 16:36 5 MG Latanoprost (Xalatan Oph Soln) 1 drops HS OPL 03/28/16 22:00 04/27/16 21:59 03/30/16 21:04 1 DROPS Acetaminophen/ Hydrocodone Bitart ([place] 5/325 Tab) 1 tab Q6 PRN PO 03/29/16 10:45 04/12/16 10:44 03/29/16 10:52 1 TAB Morphine Sulfate (MoRPHine SULFATE INJ) 2 mg Q4 PRN IV 03/29/16 10:45 04/12/16 10:44 Albuterol/ Ipratropium (Duoneb) 3 ml QID PRN INH 03/29/16 16:23 04/28/16 16:22 Zolpidem Tartrate (Ambien Tab) 5 mg HS PRN PO 03/30/16 10:30 04/29/16 10:29 03/30/16 23:44 5 MG Polyethylene (Miralax Powder Packet) 17 gm DAILY PO 03/31/16 08:00 04/30/16 07:59 03/31/16 09:13 17 GM
[2016-03-31] MEDS: ACETAMINOPHEN 325 MG TAB PO SCH ×2 (16:35→21:32)
--- NOTE | 2016-03-31 17:51 | DIAGNOSTIC IMAGING REPORT ---
AP PELVIS/BILAT HIP MIN 3-4V CLINICAL HISTORY: L groin pain of unknown origin pain COMPARISON: None. DISCUSSION: Subtle area of sclerosis subcapital region right hip. No evidence for acetabular protrusion. This may be secondary to right hip positioning is not seen in the patient's prior CT study of this region. Vascular stents involving the low abdomen and upper pelvic region. Multiple pelvic vascular clip clips bilaterally. IMPRESSION: No acute process. Chronic and postoperative change. Electronically signed by: Mike Paulson M.D. 03/31/2016 5:50 PM Dictated Date/Time: 03/31/2016 5:46 PM
[2016-03-31] MEDS: LATANOPROST 0.005% OP SOLN 2.5 ML BTL OPL SCH (21:33)
[2016-03-31] MEDS: ZOLPIDEM TARTRATE 5 MG TAB PO PRN (21:33)
[2016-03-31] MEDS: DOCUSATE SODIUM/SENNA 50/8.6MG TAB PO SCH (21:34)
[2016-03-31 23:33] VITALS: BP 142/83; PULSE 61; TEMP 36.8; O2SAT 92
[2016-04-01] MEDS: LEVOTHYROXINE 75 MCG TAB PO SCH (06:35)
[2016-04-01] MEDS: ACETAMINOPHEN 325 MG TAB PO SCH ×3 (06:36→20:18)
[2016-04-01 06:56] LABS: INR 2.1 (0.9-1.1); PARTIAL THROMBOPLASTIN RATIO 1.9; PROTHROMBIN TIME (PATIENT) 22.7 SECONDS (9.0-12.0)
[2016-04-01 07:56] VITALS: BP 97/66; PULSE 61; TEMP 36; O2SAT 91
[2016-04-01] MEDS: NYSTATIN POWDER 15GM BTL EXT SCH ×2 (08:24→20:18)
[2016-04-01] MEDS: SERTRALINE HCL 50 MG TAB PO SCH (08:24)
[2016-04-01] MEDS: OXYBUTYNIN CHLORIDE 5 MG TABCR PO SCH (08:24)
[2016-04-01] MEDS: FERROUS SULFATE 325 MG TAB PO SCH (08:24)
[2016-04-01] MEDS: CHOLECALCIFEROL 1000 INTER.UNIT TAB PO SCH (08:25)
[2016-04-01] MEDS: POLYETHYLENE (MIRALAX) 17 GM PACK PO SCH (08:25)
[2016-04-01] MEDS: PANTOprazole SOD 40 MG TAB PO SCH ×2 (08:25→20:16)
[2016-04-01] MEDS: HEPARIN 25,000 UNIT/500ML D5W 500 ML IV PRN (10:24)
[2016-04-01] MEDS: CEFTRIAXONE SOD INJ 1 GM in DEXTROSE 5% ADD-VANTAGE 50ML 50 ML IV SCH (14:02)
[2016-04-01 15:30] VITALS: O2SAT 98
[2016-04-01] MEDS: WARFARIN SOD 5 MG TAB PO SCH (15:41)
[2016-04-01 16:11] VITALS: BP 129/68; PULSE 50; TEMP 36.4; O2SAT 96
--- NOTE | 2016-04-01 19:06 | Progress Note ---
Medicine Progress Note Date & Time of Visit: Apr 01, 2016 at 16:30. Subjective Pt doing well today States he got a restful sleep last night with the Ambien 10mg Has some L hip pain today that is now outer hip--groin pain is resolved. Hip xray reviewed with "subtle sclerosis subcapital region of R hip, vascular stents in lower abdomen and upper pelvis. Mult pelvic vascular clips present bilaterally." Still incontinent but no hematuria No other issues at this time Tolerating PO Ambulating at baseline-->pt to return home when medically stable per PT. Objective Last 8 Hrs Date Time Temp Pulse Resp B/P Pulse Ox O2 Delivery O2 Flow Rate FiO2 04/01/16 16:11 36.4 50 18 129/68 96 Nasal Cannula 1.0 Physical Exam: GEN: WNWD, in no acute distress, alert and appropriate but hard of hearing HEENT: NC/AT, normal sclerae CARDIO: reg rate, S1/2 heard without m/g/r LUNGS: CTA bilaterally, no crackles, rales or wheezes, good diaphragmatic excursion ABD: soft, non-tender, non-distended, no rebound or guarding, +BS EXTREMITY: no LE swelling or edema, extremities are warm and well-perfused N/M: moves all extremities equally, no gross focal deficits SKIN: warm and dry and as above. Laboratory Results: Last 24 Hours Test 04/01/16 06:15 Prothrombin Time 22.7 SECONDS Prothromb Time International Ratio 2.1 Activated Partial Thromboplast Time 48.7 SECONDS Partial Thromboplastin Ratio 1.9 Assessment & Plan 86 yom with gross hematuria 2/2 Arita trauma s/p removal of Arita with resolution of hematuria. Also p/w acute SOB and workup revealed PE, bridging heparin to coumadin. SHORTNESS OF BREATH w/HYPOXIA 2/2 acute pulmonary embolus -hypoxia and SOB have resolved -on heparin drip bridge with warfarin INR 1.3-->1.7-->2.1 today, cont 5mg PO daily -uncertain cause--poss malignancy? PSA 0 in setting of prior h/o prostate CA, uncertain when last cscope was (gets most of care at [facility]), and last hospitalization was a few months ago where patient had a major surgery for a GI bleed-- -cont warfarin for goal INR 2-3 and bridge with heparin as the patient was acutely short of breath on admission -Heme consulted and agrees with plan - CXR without infiltrate or CHF, clear lungs on exam, no h/o coughing -BL LE dopplers are negative INR in am, if >2 stop heparin drip and dc to home with Coumadin Clinic follow- up. INSOMNIA melatonin doesn't work but great result with Alex 10qHS recommend sending him home with this. GROIN/ HIP PAIN: possibly 2/2 vascular disease in this area versus OA of hips ordered scheduled APAP with Oxy (plain) for breakthrough which is working continue workup/treatment efforts as an outpatient HEMATURIA, RENAL LESIONS -no recurrence of hematuria since admission - CT abd/pelvis concerning for possible small cell renal carcinoma -per Urology no further imaging or workup is required at this time. - apparently hematuria is from Arita trauma. no hematuria noted currently -no fevers, chills or pelvic pain was noted. -removed Arita on admission BACTERURIA -UCx reveals coag neg staph, likely a contaminant and patient is asymptomatic -repeat UA and UCx -cont Rocephin for now, pt is a poor historian but no UTI symptoms in setting of chronic incontinence -with this, will cont Rocephin for a short course in light of unexplained pelvic pain-->stopped on 04/01 after 5 days CHRONIC URINARY INCONTINENCE s/p prostatectomy -had a stimulator placed in the past but this quit working recently -[facility] recommended indefinite Arita to manage the incontinence, however, Dr. Esposito disagrees with that management -with urethral irritation, she recommends removing it and the patient agrees with this. -DC arita and follow-up with Urology as outpatient -cont Ditropan -attempted [place] catheter but this was unsuccessful as it didn't stay in place -cont diapers CHRONIC DIASTOLIC CHF - appears euvolemic - restart home Lasix 20mg daily CAD - holding ASA due to hematuria -will defer to PCP or Public Affairs Manager to add this back as outpatient in setting of warfarin which is new and not too distant history of major GI bleeding -would cont to hold at discharge and get close followup with Cards or Vascular as outpatient HYPOTHYROIDISM - continue levothyroxine DVT PROPHYLAXIS SCDs/heparin drip/coumadin CODE STATUS: DNR Dispo: likely dc in am. PT states ok to go home when stable. Noticed he is on 1L NC, nurse to take off right now. If hypoxic prior to discharge tomorrow, consider two-step, but right now that is not necessary. I contacted son, Mike, by phone and discussed the plan with him. Answered all questions. [facility] Consultants: Urology Current Inpatient Medications: Current Inpatient Medications Medications (Trade) Dose Ordered Sig/Amilcar Route Start Time Stop Time Status Last Admin Dose Admin Ondansetron HCl (Zofran Inj) 4 mg Q6H PRN IV 03/27/16 15:15 04/26/16 15:14 Nystatin 1 appln 1 appln BID EXT 03/27/16 20:00 04/26/16 20:59 04/01/16 08:24 1 APPLN Ceftriaxone Sodium/Dextrose (Rocephin Inj/ Dextrose Add-[place] 50ML) 50 ml @ 100 mls/hr Q24H IV 03/28/16 14:00 04/05/16 14:29 04/01/16 14:02 100 MLS/HR Cholecalciferol (Vitamin D Tab) 1,000 inter.unit DAILY PO 03/28/16 08:00 04/27/16 08:59 04/01/16 08:25 1,000 INTER.UNIT Levothyroxine Sodium (Synthroid Tab) 75 mcg DAILYBB PO 03/28/16 06:30 04/27/16 08:59 04/01/16 06:35 75 MCG Oxybutynin Chloride (Ditropan-Xl Tab) 10 mg DAILY PO 03/28/16 08:00 04/27/16 08:59 04/01/16 08:24 10 MG Pantoprazole Sodium (Protonix Tab) 40 mg BID PO 03/27/16 20:00 04/26/16 20:59 04/01/16 08:25 40 MG Senna/Docusate Sodium (Senokot S Tab) 1 tab HS PO 03/27/16 21:00 04/26/16 20:59 03/31/16 21:34 1 TAB Sertraline HCl (Zoloft Tab) 50 mg DAILY PO 03/28/16 08:00 04/27/16 08:59 04/01/16 08:24 50 MG Ferrous Sulfate 325 mg 325 mg DAILY PO 03/28/16 08:00 04/27/16 08:59 04/01/16 08:24 325 MG Heparin Sodium/ Dextrose (Heparin 25,000 Unit/500ml D5W) 500 ml @ 25 mls/hr Q20H PRN IV 03/27/16 22:45 04/26/16 22:44 04/01/16 10:24 25 MLS/HR Warfarin Sodium (Coumadin Tab) 5 mg DAILY@16 PO 03/28/16 16:00 04/27/16 15:59 04/01/16 15:41 5 MG Latanoprost (Xalatan Oph Soln) 1 drops HS OPL 03/28/16 22:00 04/27/16 21:59 03/31/16 21:33 1 DROPS Morphine Sulfate (MoRPHine SULFATE INJ) 2 mg Q4 PRN IV 03/29/16 10:45 04/12/16 10:44 Albuterol/ Ipratropium (Duoneb) 3 ml QID PRN INH 03/29/16 16:23 04/28/16 16:22 Polyethylene (Miralax Powder Packet) 17 gm DAILY PO 03/31/16 08:00 04/30/16 07:59 04/01/16 08:25 17 GM Acetaminophen (Tylenol Tab) 650 mg Q8 PO 03/31/16 16:00 04/30/16 15:59 04/01/16 14:02 650 MG Oxycodone HCl (Roxicodone Immediate Rel Tab) 5 mg Q6H PRN PO 03/31/16 16:00 04/14/16 15:59 Zolpidem Tartrate (Ambien Tab) 10 mg HS PRN PO 03/31/16 15:52 04/30/16 15:51 03/31/16 21:33 10 MG
--- NOTE | 2016-04-01 20:02 | Hematology/Oncology Prog Note ---
Hematology/Onc Progress Note Date of Service Apr 01, 2016. Diagnoses 1. Chronic Pulmonary Embolus * 86 year old male admitted with shortness of breath and elevated D dimer * CT scan chest PE protocol suggestive of age indeterminate but likely chronic PE * B/L Dopplers on admission negative for DVT * He is on bridge from heparin drip to Coumadin currently - would recommend keep goal INR on lower end 2 to 2.5, in light of more recent GI bleed (INR today is 2.1) * Dr. Ortega recommended pulmonary evaluation for workup to rule out any other etiology of his hypoxia/ acute shortness of breath and chronic PE since findings on his CT scan are not clearly acute- not obtained as of today * Limited hypercoagulable workup with patient currently on anticoagulation * Factor V leiden, prothrombin gene mutation, cardiolipin antibody IgG and IgM , and homocysteine all pending as of today * Recommend hematology follow up in 4 weeks after discharge for anemia 2. Left hip pain * XR without etiology for pain * On APAP with Oxy for breakthrough pain 3. Hematuria with right renal lesion * no recurrence of hematuria since admission * CT abd/pelvis concerning for possible small cell renal carcinoma-per Urology no further imaging or workup * Hematuria is from [place] trauma- has been d/c per urology Medications Medications Administered Medications (Trade) Dose Ordered Sig/Amilcar Route Start Time Stop Time Status Last Admin Dose Admin Albuterol/ Ipratropium (Duoneb) 12 ml ONE ONCE INH 03/27/16 12:15 03/27/16 12:16 DC 03/27/16 13:27 12 ML Morphine Sulfate (MoRPHine SULFATE INJ) 2 mg NOW STAT IV 03/27/16 12:24 03/27/16 12:25 DC 03/27/16 12:48 2 MG Ondansetron HCl (Zofran Inj) 4 mg NOW STAT IV 03/27/16 12:24 03/27/16 12:25 DC 03/27/16 12:48 4 MG Ceftriaxone Sodium (Rocephin Inj) 1 gm NOW STAT IV 03/27/16 14:27 03/27/16 14:28 DC 03/27/16 14:38 1 GM Methylprednisolone Sodium Succinate (Solu-Medrol IV) 60 mg NOW STAT IV 03/27/16 15:00 03/27/16 15:01 DC 03/27/16 15:31 60 MG Acetaminophen (Tylenol Tab) 650 mg Q4H PRN PO 03/27/16 15:15 03/31/16 15:48 DC 03/29/16 08:07 650 MG Albuterol/ Ipratropium (Duoneb) 3 ml QIDR INH 03/27/16 16:00 03/29/16 16:25 DC 03/29/16 15:18 3 ML Nystatin 1 appln 1 appln BID EXT 03/27/16 20:00 04/26/16 20:59 04/01/16 08:24 1 APPLN Ceftriaxone Sodium/Dextrose (Rocephin Inj/ Dextrose Add-[place] 50ML) 50 ml @ 100 mls/hr Q24H IV 03/28/16 14:00 04/05/16 14:29 04/01/16 14:02 100 MLS/HR Cholecalciferol (Vitamin D Tab) 1,000 inter.unit DAILY PO 03/28/16 08:00 04/27/16 08:59 04/01/16 08:25 1,000 INTER.UNIT Levothyroxine Sodium (Synthroid Tab) 75 mcg DAILYBB PO 03/28/16 06:30 04/27/16 08:59 04/01/16 06:35 75 MCG Oxybutynin Chloride (Ditropan-Xl Tab) 10 mg DAILY PO 03/28/16 08:00 04/27/16 08:59 04/01/16 08:24 10 MG Pantoprazole Sodium (Protonix Tab) 40 mg BID PO 03/27/16 20:00 04/26/16 20:59 04/01/16 08:25 40 MG Senna/Docusate Sodium (Senokot S Tab) 1 tab HS PO 03/27/16 21:00 04/26/16 20:59 03/31/16 21:34 1 TAB Sertraline HCl (Zoloft Tab) 50 mg DAILY PO 03/28/16 08:00 04/27/16 08:59 04/01/16 08:24 50 MG Ferrous Sulfate 325 mg 325 mg DAILY PO 03/28/16 08:00 04/27/16 08:59 04/01/16 08:24 325 MG Sodium Chloride 1,000 ml @ 80 mls/hr [id number] IV 03/27/16 17:45 03/28/16 11:44 DC 03/28/16 06:20 80 MLS/HR Heparin Sodium/ Dextrose 500 ml @ 25 mls/hr Q20H PRN IV 03/27/16 22:45 04/26/16 22:44 04/01/16 10:24 25 MLS/HR Heparin Sodium (Porcine)/Syringe (Heparin Iv Bolus/Syringe) 4.5 ml @ 10 mls/min NOW STAT IV 03/28/16 06:12 03/28/16 06:13 DC 03/28/16 06:20 10 MLS/MIN Warfarin Sodium (Coumadin Tab) 5 mg DAILY@16 PO 03/28/16 16:00 04/27/16 15:59 03/31/16 16:13 5 MG Latanoprost 1 drops 1 drops HS OPL 03/28/16 22:00 04/27/16 21:59 03/31/16 21:33 1 DROPS Heparin Sodium (Porcine)/Syringe (Heparin Iv Bolus/Syringe) 3 ml @ 10 mls/min TODAY@0830 IV 03/29/16 08:30 03/29/16 10:00 DC 03/29/16 08:41 10 MLS/MIN Acetaminophen/ Hydrocodone Bitart ([place] 5/325 Tab) 1 tab Q6 PRN PO 03/29/16 10:45 03/31/16 15:48 DC 03/31/16 13:33 1 TAB Zolpidem Tartrate (Ambien Tab) 5 mg HS PRN PO 03/30/16 10:30 03/31/16 15:53 DC 03/30/16 23:44 5 MG Polyethylene (Miralax Powder Packet) 17 gm DAILY PO 03/31/16 08:00 04/30/16 07:59 04/01/16 08:25 17 GM Acetaminophen (Tylenol Tab) 650 mg Q8 PO 03/31/16 16:00 04/30/16 15:59 04/01/16 14:02 650 MG Zolpidem Tartrate (Ambien Tab) 10 mg HS PRN PO 03/31/16 15:52 04/30/16 15:51 03/31/16 21:33 10 MG Subjective History obtained from the patient at bedside, but patient is unreliable historian. He reports that his breathing is "bad," but he states he has not had dyspnea today while walking around the hospital. He does have a productive cough. He denies chest pain. He reports a good appetite and has not had nausea , bowel irregularity, bloody or black stools. He states that his left hip hurts for which bilateral hip x-rays were obtained and shows no acute process or degenerative change of left hip. Review of Systems: Respiratory: + see HPI Cardiovascular: No chest pain Abdomen: No GI bleeding, No constipation, No diarrhea, No pain Musculoskeletal: + see HPI Male : + see HPI Heme: + clotting problems Vital Signs Vital Signs Past 12 Hours Date Time Temp Pulse Resp B/P Pulse Ox O2 Delivery O2 Flow Rate FiO2 04/01/16 08:00 Room Air 04/01/16 07:56 36.0 61 22 97/66 91 Room Air Physical Exam Head: normocephalic, atraumatic ENMT: hearing grossly normal Lungs: Respiratory Effort: no dyspnea Auscuitation: breath sounds normal, no wheezing, no rhonchi Cardiovascular: Heart Auscultation: RRR Abdomen: Bowel Sounds: normal Inspection & Palpation: soft, non-distended, no tenderness, guarding & rebound, no masses Extremities: no edema (or calf tenderness) Laboratory 03/31/16 07:16 Test 03/29/16 20:35 03/30/16 07:46 03/30/16 09:00 03/31/16 07:16 Activated Partial Thromboplast Time 49.9 SECONDS (21.0-31.0) 46.9 SECONDS (21.0-31.0) 51.4 SECONDS (21.0-31.0) Partial Thromboplastin Ratio 1.9 1.8 2.0 Prothrombin Time 13.8 SECONDS (9.0-12.0) 18.1 SECONDS (9.0-12.0) Prothromb Time International Ratio 1.3 (0.9-1.1) 1.7 (0.9-1.1) Urine Color YELLOW Urine Appearance CLEAR (CLEAR) Urine pH 7.5 (4.5-7.5) Urine Specific [place] 1.012 (1.000-1.030) Urine Protein NEG (NEG) Urine Glucose (UA) NEG (NEG) Urine Ketones NEG (NEG) Urine Occult Blood NEG (NEG) Urine Nitrite NEG (NEG) Urine Bilirubin NEG (NEG) Urine Urobilinogen NEG (NEG) Urine Leukocyte Esterase NEG (NEG) Red Blood Count 4.06 M/uL (4.7-6.1) Mean Corpuscular Volume 89.2 fL (80-100) Mean Corpuscular Hemoglobin 29.8 pg (25-34) Mean Corpuscular Hemoglobin Concent 33.4 g/dl (32-36) RDW Standard Deviation 49.2 fL (36.4-46.3) RDW Coefficient of Variation 15.0 % (11.5-14.5) Mean Platelet Volume 10.5 fL (7.4-10.4) Test 04/01/16 06:15 Prothrombin Time 22.7 SECONDS (9.0-12.0) Prothromb Time International Ratio 2.1 (0.9-1.1) Activated Partial Thromboplast Time 48.7 SECONDS (21.0-31.0) Partial Thromboplastin Ratio 1.9 Date/Time Source Procedure Growth Status 03/30/16 09:00 Urine , Clean Catch Urine Culture - Final NO GROWTH - LESS THAN 1,000 COLONIES/ML Complete Radiology Bilateral hip x-rays from 03/31/2016: No acute process.Subtle area of sclerosis subcapital region right hip. No evidence for acetabular protrusion. This may be secondary to right hip positioning is not seen in the patient's prior CT study of this region. Assessment & Plan (1) Pulmonary embolus Assessment & Plan: See diagnosis section for A/P. (2) Lesion of right levelock kidney Assessment & Plan: See diagnosis section for A/P. (3) Left hip pain Assessment & Plan: See diagnosis section for A/P.
[2016-04-01] MEDS: DOCUSATE SODIUM/SENNA 50/8.6MG TAB PO SCH (20:18)
[2016-04-01] MEDS: LATANOPROST 0.005% OP SOLN 2.5 ML BTL OPL SCH (20:18)
[2016-04-01] MEDS: ZOLPIDEM TARTRATE 5 MG TAB PO PRN (22:12)
[2016-04-02 00:33] VITALS: BP 131/68; PULSE 68; TEMP 36.7; O2SAT 92
[2016-04-02] MEDS: LEVOTHYROXINE 75 MCG TAB PO SCH (05:53)
[2016-04-02] MEDS: ACETAMINOPHEN 325 MG TAB PO SCH ×2 (05:53→14:14)
[2016-04-02] MEDS: HEPARIN 25,000 UNIT/500ML D5W 500 ML IV PRN (06:46)
[2016-04-02 07:05] VITALS: BP 147/81; PULSE 55; TEMP 36.4; O2SAT 96
[2016-04-02 07:13] LABS: HEMATOCRIT 37.2 % (42-52); MEAN CELL VOLUME 89.6 fL (80-100); MEAN CORPUSCULAR HEMOGLOBIN 30.1 pg (25-34); MEAN CORPUSCULAR HGB CONC 33.6 g/dl (32-36); MEAN PLATELET VOLUME 10.6 fL (7.4-10.4); PLATELET COUNT 168 K/uL (130-400); RED BLOOD COUNT 4.15 M/uL (4.7-6.1); WHITE BLOOD COUNT 6.08 K/uL (4.8-10.8)
[2016-04-02 07:34] LABS: INR 2.9 (0.9-1.1); PROTHROMBIN TIME (PATIENT) 31.9 SECONDS (9.0-12.0)
[2016-04-02 08:00] VITALS: O2SAT 96
[2016-04-02] MEDS ORDERED: FUROSEMIDE 20 MG TAB PO SCH (08:00)
[2016-04-02] MEDS: PANTOprazole SOD 40 MG TAB PO SCH (08:46)
[2016-04-02] MEDS: CHOLECALCIFEROL 1000 INTER.UNIT TAB PO SCH (08:46)
[2016-04-02] MEDS: OXYBUTYNIN CHLORIDE 5 MG TABCR PO SCH (08:46)
[2016-04-02] MEDS: SERTRALINE HCL 50 MG TAB PO SCH (08:47)
[2016-04-02] MEDS: FERROUS SULFATE 325 MG TAB PO SCH (08:47)
[2016-04-02] MEDS: POLYETHYLENE (MIRALAX) 17 GM PACK PO SCH (08:48)
[2016-04-02] MEDS: NYSTATIN POWDER 15GM BTL EXT SCH (08:49)
--- NOTE | 2016-04-02 14:16 | Progress Note ---
Medicine Progress Note Date & Time of Visit: Apr 02, 2016 at 14:05. Subjective Pt was seen and examined Lying in bed very comfortable with son at bedside Pt said that he feels fine he denies any chest pain, palpitation, dizziness and sob He said that he is ready to be discharged today. Objective Last 8 Hrs Date Time Temp Pulse Resp B/P Pulse Ox O2 Delivery O2 Flow Rate FiO2 04/02/16 08:00 96 Room Air 04/02/16 07:05 36.4 55 18 147/81 96 Room Air Physical Exam: General- No acute distress Head- atraumatic Eyes- PERRL, EOMI ENT- oropharynx clear Neck- supple, no JVD Lungs- clear to auscultation and percussion Heart- regular rhythm; no murmur Abdomen- normal bowel sounds, soft Extremities- no calf tenderness Neuro- alert, oriented, PERRL, EOMI Skin- warm & dry Laboratory Results: Last 24 Hours Test 04/02/16 06:40 White Blood Count 6.08 K/uL Red Blood Count 4.15 M/uL Hemoglobin 12.5 g/dL Hematocrit 37.2 % Mean Corpuscular Volume 89.6 fL Mean Corpuscular Hemoglobin 30.1 pg Mean Corpuscular Hemoglobin Concent 33.6 g/dl RDW Standard Deviation 49.4 fL RDW Coefficient of Variation 15.1 % Platelet Count 168 K/uL Mean Platelet Volume 10.6 fL Prothrombin Time 31.9 SECONDS Prothromb Time International Ratio 2.9 Activated Partial Thromboplast Time 78.6 SECONDS Partial Thromboplastin Ratio 3.0 Assessment & Plan SHORTNESS OF BREATH w/HYPOXIA 2/2 acute pulmonary embolus -hypoxia and SOB have resolved -on heparin drip bridge with warfarin INR 1.3-->1.7-->2.1 today, cont 5mg PO daily -uncertain cause--poss malignancy? PSA 0 in setting of prior h/o prostate CA, uncertain when last cscope was (gets most of care at [facility]), and last hospitalization was a few months ago where patient had a major surgery for a GI bleed-- -cont warfarin for goal INR 2-3 and bridge with heparin as the patient was acutely short of breath on admission -Heme consulted and agrees with plan - CXR without infiltrate or CHF, clear lungs on exam, no h/o coughing -BL LE dopplers are negative - INR today 2.9, D/C heparin drip - Home health will draw lab tomorrow for the INR - Will discharge with coumadin 3 mg daily - Will follow with anticoagulant clinic INSOMNIA melatonin doesn't work but great result with Alex 10qHS recommend sending him home with this. Stable GROIN/ HIP PAIN: possibly 2/2 vascular disease in this area versus OA of hips ordered scheduled APAP with Oxy (plain) for breakthrough which is working continue workup/treatment efforts as an outpatient HEMATURIA, RENAL LESIONS -no recurrence of hematuria since admission - CT abd/pelvis concerning for possible small cell renal carcinoma -per Urology no further imaging or workup is required at this time. - apparently hematuria is from Arita trauma. no hematuria noted currently -no fevers, chills or pelvic pain was noted. -removed Arita on admission - Stable - He follow with [facility], son will switch urology to Dr. Esposito - Pt will call dr. Esposito for follow up BACTERURIA -UCx reveals coag neg staph, likely a contaminant and patient is asymptomatic -repeat UA and UCx -cont Rocephin for now, pt is a poor historian but no UTI symptoms in setting of chronic incontinence -with this, will cont Rocephin for a short course in light of unexplained pelvic pain-->stopped on 04/01 after 5 days - Stable CHRONIC URINARY INCONTINENCE s/p prostatectomy -had a stimulator placed in the past but this quit working recently -[facility] recommended indefinite Arita to manage the incontinence, however, Dr. Esposito disagrees with that management -with urethral irritation, she recommends removing it and the patient agrees with this. -DC arita and follow-up with Urology as outpatient -cont Ditropan -attempted [place] catheter but this was unsuccessful as it didn't stay in place -cont diapers CHRONIC DIASTOLIC CHF - appears euvolemic - restart home Lasix 20mg daily - Asymptomatic CAD - holding ASA due to hematuria -will defer to PCP or Director Appointment to add this back as outpatient in setting of warfarin which is new and not too distant history of major GI bleeding -would cont to hold at discharge and get close followup with Cards or Vascular as outpatient HYPOTHYROIDISM - continue levothyroxine DVT PROPHYLAXIS SCDs/heparin drip/coumadin CODE STATUS: DNR Consultants: Urology Hematology Current Inpatient Medications: Current Inpatient Medications Medications (Trade) Dose Ordered Sig/Amilcar Route Start Time Stop Time Status Last Admin Dose Admin Ondansetron HCl (Zofran Inj) 4 mg Q6H PRN IV 03/27/16 15:15 04/26/16 15:14 Nystatin (Mycostatin Powder) 1 appln BID EXT 03/27/16 20:00 04/26/16 20:59 04/02/16 08:49 1 APPLN Cholecalciferol (Vitamin D Tab) 1,000 inter.unit DAILY PO 03/28/16 08:00 04/27/16 08:59 04/02/16 08:46 1,000 INTER.UNIT Levothyroxine Sodium (Synthroid Tab) 75 mcg DAILYBB PO 03/28/16 06:30 04/27/16 08:59 04/02/16 05:53 75 MCG Oxybutynin Chloride (Ditropan-Xl Tab) 10 mg DAILY PO 03/28/16 08:00 04/27/16 08:59 04/02/16 08:46 10 MG Pantoprazole Sodium (Protonix Tab) 40 mg BID PO 03/27/16 20:00 04/26/16 20:59 04/02/16 08:46 40 MG Senna/Docusate Sodium (Senokot S Tab) 1 tab HS PO 03/27/16 21:00 04/26/16 20:59 04/01/16 20:18 1 TAB Sertraline HCl (Zoloft Tab) 50 mg DAILY PO 03/28/16 08:00 04/27/16 08:59 04/02/16 08:47 50 MG Ferrous Sulfate (Feosol Tab) 325 mg DAILY PO 03/28/16 08:00 04/27/16 08:59 04/02/16 08:47 325 MG Latanoprost (Xalatan Oph Soln) 1 drops HS OPL 03/28/16 22:00 04/27/16 21:59 04/01/16 20:18 1 DROPS Morphine Sulfate (MoRPHine SULFATE INJ) 2 mg Q4 PRN IV 03/29/16 10:45 04/12/16 10:44 Albuterol/ Ipratropium (Duoneb) 3 ml QID PRN INH 03/29/16 16:23 04/28/16 16:22 Polyethylene (Miralax Powder Packet) 17 gm DAILY PO 03/31/16 08:00 04/30/16 07:59 04/02/16 08:48 17 GM Acetaminophen (Tylenol Tab) 650 mg Q8 PO 03/31/16 16:00 04/30/16 15:59 04/02/16 05:53 650 MG Oxycodone HCl (Roxicodone Immediate Rel Tab) 5 mg Q6H PRN PO 03/31/16 16:00 04/14/16 15:59 04/01/16 17:36 5 MG Zolpidem Tartrate (Ambien Tab) 10 mg HS PRN PO 03/31/16 15:52 04/30/16 15:51 04/01/16 22:12 10 MG Furosemide (Lasix Tab) 20 mg DAILY PO 04/02/16 08:00 05/02/16 07:59 04/02/16 08:46 20 MG Warfarin Sodium (Coumadin Tab) 3 mg DAILY@16 PO 04/02/16 16:00 05/02/16 15:59
[2016-04-02] MEDS ORDERED: CMD3 PO (14:21)
[2016-04-02] MEDS ORDERED: AMB5 PO (14:21)
--- NOTE | 2016-04-02 14:35 | Discharge Instructions ---
Discharge Instructions Admission Reason for Admission: Hematuria, Shortness Of Breath VTE Date & Time Date of VTE Diagnosis: Mar 27, 2016 Time of VTE Diagnosis: 18:35 Discharge Goals Goal(s): Decrease discomfort, Improve function, Improve disease control Activity Recommendations Activity Limitations: resume your previous activity as tolerated . Instructions / Follow-Up Instructions / Follow-Up Follow up with your primary care physician Dr. Peters on Apr 09 @ 2:10 pm Home health set up. Home health will draw lab tomorrow for INR You already set up with the anticoagulant clinic for the Coumadin INR today 2.9, take coumadin 3 mg tomorrow INR goal between 2 to 2.5 due to GI bleed you will take coumadin as directed Follow up with Hematology clinic in 4 weeks for anemia, Please call to schedule appointment Hold Aspirin for now until seeing your primary care physician. Follow up with urology as an outpatient Medication Instructions: * Warfarin is a medicine prescribed to prevent blood clots * Warfarin will thin your blood and help prevent new clots * Take your medications exactly as directed * Never skip a dose. Never take a double dose. If you miss a dose, take it as soon as you remember * It is important for your doctor to monitor your prothrombin time (PT). This is a lab test * Keep your appointment for lab tests Risk of Adverse Drug Reactions and Interactions: * Warfarin increases your risk of bleeding * The food you eat and other medications you take can affect how Warfarin works in your body * Ask your doctor about daily aspirin therapy * It is very important to talk with your doctor about all of the other medicines , antibiotics, vitamins or herbal products that you are taking * All of your medication must be approved by your doctor, including new medicines, as well as medicines you have taken before you started taking Warfarin Diet: * In order for Warfarin to work properly, it is important to keep your intake of Vitamin K as consistent as possible * You should avoid any sudden change in Vitamin K intake * Report any significant changes in your diet or weight to your doctor Call your Primary Care doctor if you experience any of the following: * Swelling or Pain in your leg * Sudden, continuous pain deep in a muscle * Pain that worsens when you are active or when you stand still for a long time * Chest Pain * Sudden Shortness of Breath * Rapid or pounding heart beat * Fainting * Dizziness * Cough with blood or bloody sputum * Sweating more than normal * Bruises * Heavy or uncontrolled bleeding * Blood in your urine, stool or vomit * Black or tarry stools Caring for Your Self at Home: * Avoid sitting, standing or lying down for long periods without moving your legs and feet * When traveling by car, stop to get out and move around at least once every 3 hours * On long airplane, train or bus rides, get up and move around when possible * If you can't get up, wiggle your toes and tighten your calves to keep your blood moving Follow Up: It is important for you to keep your follow up appointments with your medical provider. Current Hospital Diet Patient's current hospital diet: AHA Diet (Heart Healthy) Discharge Diet Recommended Diet: AHA Diet (Heart Healthy) Pending Studies Studies pending at discharge: yes List of pending studies: Factor V leiden, prothrombin gene mutation, cardiolipin antibody IgG and IgM, and homocysteine Medical Emergencies . Who to Call and When: Medical Emergencies: If at any time you feel your situation is an emergency, please call 911 immediately. . Non-Emergent Contact Non-Emergency issues call your: Primary Care Provider Call Non-Emergent contact if: you have any medication questions . . "Provider Documentation" section prepared by Yancy Larson. VTE Core Measure Inpt VTE Proph given/why not?: Unfractionated heparin SQ, Warfarin (Coumadin) Reason no anticoag overlap I/P: Treatment provided - N/A Reason no anticoag overlap @DC: Treatment provided - N/A [place] Drug Monitoring Program Search Results: patient reviewed within database
[2016-04-02 14:45] VITALS: BP 103/86; PULSE 51; TEMP 36.4; O2SAT 92
[2016-04-02] MEDS ORDERED: RXC5 PO (14:46)
[2016-04-02 15:12] LABS: PARTIAL THROMBOPLASTIN RATIO 1.3
[2016-04-02 15:23] VITALS: BP 103/86; PULSE 51; TEMP 36.4; O2SAT 92
[2016-04-02] MEDS ORDERED: WARFARIN SOD 3 MG TAB PO SCH (16:00)
[2016-04-03 15:23] LABS: METHYLMALONIC ACID 272 NMOL/L (87-318)
--- NOTE | 2016-04-03 18:14 | Discharge Summary ---
Discharge Summary Admission Date: Mar 27, 2016 at 15:18 Discharge Date: Apr 02, 2016 Discharge Disposition: Home with services Principal Diagnosis: Pulmonary embolism Secondary Diagnoses/Problems: Hematuria Renal Lesion Insomnia Hypothyroidism Procedures: CT ANGIOGRAM OF THE CHEST CLINICAL HISTORY: Dyspnea. Hypoxia. COMPARISON STUDY: Chest x-ray dated 03/27/2016. TECHNIQUE: Following the IV administration of 91 cc of Optiray 320, CT angiogram of the chest was performed from the upper abdomen to the thoracic inlet utilizing the pulmonary embolus protocol. Images are reviewed in the axial, sagittal, and coronal planes. 3-D MIPS images are created and assessed. IV contrast was administered without complication. The examination is moderately degraded by motion artifact. CT DOSE: 455.52 mGy.cm FINDINGS: Thyroid: Atrophic. Thoracic aorta: There is atherosclerotic calcification of the thoracic aorta, which is normal in caliber and demonstrates standard 3-vessel arch anatomy. No dissection is seen. Pulmonary vasculature: The pulmonary trunk is dilated measuring 4.1 cm in diameter. This suggests pulmonary artery hypertension. There are thin linear filling defects within segmental and subsegmental branches of the right lower lobe (axial image #112). This suggests age-indeterminate but almost certainly chronic pulmonary embolus. No additional filling defects are seen bilaterally within the main, lobar, or segmental pulmonary branches. Heart: The heart is enlarged and without pericardial effusion. Coronary arteries and mitral annulus are densely calcified. Lungs and pleural spaces: Evaluation of the lung parenchyma is significantly degraded by respiratory motion artifact. There is chronic elevation of the right hemidiaphragm with right basilar atelectasis. No lobar consolidation or pleural effusion is identified. Chronic interstitial change and nodularity is noted. The trachea and central airways are clear. Mediastinum: There is no mediastinal lymphadenopathy. Liz: Clear. Axillae: There is no axillary lymphadenopathy. Upper abdomen: Diverticulosis is noted in the partially imaged colon. There is a small hiatal hernia. Skeletal structures: The skeletal structures are osteopenic. Degenerative change is present throughout the thoracic spine. No lytic or blastic bony lesions are seen. IMPRESSION: 1. Motion degraded examination. 2. There are thin linear central filling defects identified within segmental and subsegmental branches in the right lower lobe pulmonary artery. This suggests trace and age indeterminant but almost certainly chronic pulmonary embolus. 3. No additional findings are concerning for bilateral embolus. 4. Cardiomegaly with evidence of pulmonary hypertension. 5. There is no airspace consolidation typical for pneumonia or pleural effusion. Chronic changes are discussed above. 6. Additional findings as above. ABDOMEN AND PELVIS CT WITHOUT CONTRAST CT DOSE: 1142.85 mGycm HISTORY: Pt c/o hematuria TECHNIQUE: Multiaxial CT images of the abdomen and pelvis were performed without contrast. COMPARISON STUDY: Abdomen and pelvis CT 11/08/2015. FINDINGS: Mild to moderate bilateral cortical renal scarring. Bilateral renal hypodense lesions are incompletely characterized on this noncontrast study. These remain stable. Dominant lesion within the lower pole of the left kidney measures 6.7 cm. In comparison to the prior study this is consistent with a cyst. No renal stones or hydronephrosis. The bladder is decompressed by Arita catheter. The distal ureters are not well visualized due to the metallic artifact from the multiple surgical clips within the pelvis. However, the visualized ureters appear to be normal in course and caliber. No ureteral calculi identified. There is again noted an aortobiiliac stent graft repair of abdominal aortic aneurysm. The abdominal aorta measures up to 5.0 x 4.4 cm. This remains unchanged. Right lower quadrant tubing extending into the right groin. This is consistent with a implant device. No pelvic free fluid. Suboptimal evaluation for bowel pathology due to the lack of intravenous and oral contrast. However, no definite bowel wall thickening or obstruction. Multiple colonic diverticula. The heart is mildly enlarged. Diffuse interstitial thickening throughout the visualized lungs. The unenhanced liver, gallbladder, spleen, adrenal glands, and pancreas are unremarkable. The prostate gland appears to be surgically absent. The 13 mm lesion within the upper pole may demonstrate enhancement in comparison to the prior study. This raises the possibility of a small renal cell carcinoma. IMPRESSION: 1. No renal stones or hydronephrosis. 2. Bilateral renal lesions are indeterminate on this noncontrast study but remain unchanged. The 13 mm lesion within the upper pole may demonstrate enhancement in comparison to the prior study. This raises the possibility of a small renal cell carcinoma. Dedicated renal CT can be used for confirmation. 3. Colonic diverticulosis. 4. No definite bowel wall thickening or obstruction. 5. Stable aneurysmal dilatation of the abdominal aorta with evidence for prior aortobiiliac stent graft repair. Electronically signed by: Arden Calle M.D. ULTRASOUND BILATERAL LOWER EXTREMITY VENOUS CLINICAL HISTORY: Elevated d-dimer. Dyspnea. COMPARISON STUDY: No priors. TECHNIQUE: Real-time, grayscale, and color Doppler sonography of the deep veins of the right and left lower extremity was performed from the inguinal crease to the calf. Compression and augmentation were utilized. FINDINGS: There is no sonographic evidence of deep venous thrombosis identified in the right or left lower extremity. The common femoral, superficial femoral, and popliteal veins are patent and normally compressible bilaterally. The greater saphenous vein and the profunda femoris vein at the junction with the common femoral vein are clear in both legs. The visualized calf veins are patent bilaterally. IMPRESSION: There is no sonographic evidence of deep venous thrombosis identified in the right or left lower extremity. Electronically signed by: Abhi Cabrera M.D. 03/27/2016 9:32 PM Consultations: Urology Hematology Medication Reconciliation New Medications: Oxycodone HCl (Oxycodone HCl) 5 Mg Tab 5 MG PO Q12 PRN for Pain for 7 Days, #14 TAB Warfarin Sod (Coumadin) 3 Mg Tab 3 MG PO DAILY@16 for 30 Days, TAB Zolpidem Tartrate (Zolpidem Tartrate) 5 Mg Tab 5 MG PO HS PRN for Sleep for 30 Days, TAB Continued Medications: Albuterol Hfa (Ventolin Hfa) 200 Puffs/24728 Mcg Aers 2 PUFFS PO Q4H PRN for Wheezing Cholecalciferol (Vitamin D3) 1,000 Unit Tab 1 TAB PO DAILY for 90 Days, #90 TAB 3 Refills Ferrous Sulfate (Kp Ferrous Sulfate) 325 Mg Tab 1 TAB PO DAILY for 30 Days, #30 TAB 3 Refills Furosemide (Lasix) 20 Mg Tab 20 MG PO DAILY, TAB Latanoprost (Xalatan 0.005% Oph Irma) 0.005 % Irma 1 DROPS OPL HS, 3 Refills Levothyroxine Sodium (Synthroid) 75 Mcg Tab 75 MCG PO DAILY, TAB Nitroglycerin (Nitrostat) 0.4 Mg Sub 0.4 MG UT UD PRN for Chest Pain Oxybutynin Chloride Er (Ditropan Xl) 10 Mg Tab 1 TAB PO DAILY for 30 Days, #30 TAB 5 Refills Pantoprazole (Pantoprazole Sodium) 40 Mg Tab 40 MG PO BID for 30 Days, TAB Sennosides-Docusate Sodium (Senexon-S) 1 Tab Tab 1 TAB PO HS Sertraline (Zoloft) 50 Mg Tab 50 MG PO DAILY, TAB Discontinued Medications: Aspirin (Aspirin EC Low Dose) 81 Mg Ectab 81 MG PO DAILY Melatonin (Melatonin Maximum Strengt) 5 Mg Tab 1 TAB PO HS for 30 Days, #30 TAB Admission Information HPI (per Admitting provider): 86 year old male who presents to the ER with shortness of breath and blood in his urine. Patient has underlying dementia and some history is obtained from patient's son who is at the bedside. About one month ago, patient had a arita placed for incontinence. Patient has developed irritation around the insertion site. Today patient's son reports he noted a small amount of bright red blood in the catheter tubing. This has since resolved. Also when patient woke up this morning he was complaining of shortness of breath. No cough or sputum production. He denies fever and chills. No chest pain, lightheadedness, dizziness, diaphoresis, or syncopal events. He denies abdominal pain, nausea, vomiting, and diarrhea. In the ER, patient's U/A was suggesting UTI. There was wheezing noted on exam. He was saturating 91% on room air. CXR was negative for acute findings. CT abd/pelvis was negative for acute findings as well however shows renal lesions concerning for small cell renal carcinoma. D. Dimer is elevated. Remainder of patient's labs are unremarkable. Patient was treated with IV Rocephin, solu-medrol, and neb. Physical Exam (per Admitting): gen : chronically ill appearing , HEENT; lips are cyanotic , HT; regular Lungs; diminished abdomen; soft genitals ; has chronic Arita foul smelling whitish drainage in penile meatus , neuro; baseline dementia , no appreciable focal deficit Hospital Course SHORTNESS OF BREATH w/HYPOXIA 2/2 acute pulmonary embolus -hypoxia and SOB have resolved -on heparin drip bridge with warfarin INR 1.3-->1.7-->2.1 today, cont 5mg PO daily -uncertain cause--poss malignancy? PSA 0 in setting of prior h/o prostate CA, uncertain when last cscope was (gets most of care at [facility]), and last hospitalization was a few months ago where patient had a major surgery for a GI bleed-- -cont warfarin for goal INR 2-3 and bridge with heparin as the patient was acutely short of breath on admission -Heme consulted and agrees with plan - CXR without infiltrate or CHF, clear lungs on exam, no h/o coughing -BL LE dopplers are negative - INR today 2.9, D/C heparin drip - Home health will draw lab tomorrow for the INR - Will discharge with coumadin 3 mg daily - Will follow with anticoagulant clinic INSOMNIA melatonin doesn't work but great result with Alex 10qHS recommend sending him home with this. Stable GROIN/ HIP PAIN: possibly 2/2 vascular disease in this area versus OA of hips ordered scheduled APAP with Oxy (plain) for breakthrough which is working continue workup/treatment efforts as an outpatient HEMATURIA, RENAL LESIONS -no recurrence of hematuria since admission - CT abd/pelvis concerning for possible small cell renal carcinoma -per Urology no further imaging or workup is required at this time. - apparently hematuria is from Arita trauma. no hematuria noted currently -no fevers, chills or pelvic pain was noted. -removed Arita on admission - Stable - He follow with [facility], son will switch urology to Dr. Esposito - Pt will call dr. Esposito for follow up BACTERURIA -UCx reveals coag neg staph, likely a contaminant and patient is asymptomatic -repeat UA and UCx -cont Rocephin for now, pt is a poor historian but no UTI symptoms in setting of chronic incontinence -with this, will cont Rocephin for a short course in light of unexplained pelvic pain-->stopped on 04/01 after 5 days - Stable CHRONIC URINARY INCONTINENCE s/p prostatectomy -had a stimulator placed in the past but this quit working recently -[facility] recommended indefinite Arita to manage the incontinence, however, Dr. Esposito disagrees with that management -with urethral irritation, she recommends removing it and the patient agrees with this. -DC arita and follow-up with Urology as outpatient -cont Ditropan -attempted [place] catheter but this was unsuccessful as it didn't stay in place -cont diapers CHRONIC DIASTOLIC CHF - appears euvolemic - restart home Lasix 20mg daily - Asymptomatic CAD - holding ASA due to hematuria -will defer to PCP or [employer] to add this back as outpatient in setting of warfarin which is new and not too distant history of major GI bleeding -would cont to hold at discharge and get close followup with Cards or Vascular as outpatient HYPOTHYROIDISM - continue levothyroxine DVT PROPHYLAXIS SCDs/heparin drip/coumadin CODE STATUS: DNR Total time spent on discharge = 35 minutes This includes examination of the patient, discharge planning, medication reconciliation, and communication with other providers. Discharge Instructions Discharge Instructions Admission Reason for Admission: Hematuria, Shortness Of Breath VTE Date & Time Date of VTE Diagnosis: Mar 27, 2016 Time of VTE Diagnosis: 18:35 Discharge Goals Goal(s): Decrease discomfort, Improve function, Improve disease control Activity Recommendations Activity Limitations: resume your previous activity as tolerated . Instructions / Follow-Up Instructions / Follow-Up Follow up with your primary care physician Dr. Peters on Apr 09 @ 2:10 pm Home health set up. Home health will draw lab tomorrow for INR You already set up with the anticoagulant clinic for the Coumadin INR today 2.9, take coumadin 3 mg tomorrow INR goal between 2 to 2.5 due to GI bleed you will take coumadin as directed Follow up with Hematology clinic in 4 weeks for anemia, Please call to schedule appointment Hold Aspirin for now until seeing your primary care physician. Follow up with urology as an outpatient Medication Instructions: * Warfarin is a medicine prescribed to prevent blood clots * Warfarin will thin your blood and help prevent new clots * Take your medications exactly as directed * Never skip a dose. Never take a double dose. If you miss a dose, take it as soon as you remember * It is important for your doctor to monitor your prothrombin time (PT). This is a lab test * Keep your appointment for lab tests Risk of Adverse Drug Reactions and Interactions: * Warfarin increases your risk of bleeding * The food you eat and other medications you take can affect how Warfarin works in your body * Ask your doctor about daily aspirin therapy * It is very important to talk with your doctor about all of the other medicines , antibiotics, vitamins or herbal products that you are taking * All of your medication must be approved by your doctor, including new medicines, as well as medicines you have taken before you started taking Warfarin Diet: * In order for Warfarin to work properly, it is important to keep your intake of Vitamin K as consistent as possible * You should avoid any sudden change in Vitamin K intake * Report any significant changes in your diet or weight to your doctor Call your Primary Care doctor if you experience any of the following: * Swelling or Pain in your leg * Sudden, continuous pain deep in a muscle * Pain that worsens when you are active or when you stand still for a long time * Chest Pain * Sudden Shortness of Breath * Rapid or pounding heart beat * Fainting * Dizziness * Cough with blood or bloody sputum * Sweating more than normal * Bruises * Heavy or uncontrolled bleeding * Blood in your urine, stool or vomit * Black or tarry stools Caring for Your Self at Home: * Avoid sitting, standing or lying down for long periods without moving your legs and feet * When traveling by car, stop to get out and move around at least once every 3 hours * On long airplane, train or bus rides, get up and move around when possible * If you can't get up, wiggle your toes and tighten your calves to keep your blood moving Follow Up: It is important for you to keep your follow up appointments with your medical provider. Current Hospital Diet Patient's current hospital diet: AHA Diet (Heart Healthy) Discharge Diet Recommended Diet: AHA Diet (Heart Healthy) Pending Studies Studies pending at discharge: yes List of pending studies: Factor V leiden, prothrombin gene mutation, cardiolipin antibody IgG and IgM, and homocysteine Medical Emergencies . Who to Call and When: Medical Emergencies: If at any time you feel your situation is an emergency, please call 911 immediately. . Non-Emergent Contact Non-Emergency issues call your: Primary Care Provider Call Non-Emergent contact if: you have any medication questions . . "Provider Documentation" section prepared by Yancy Larson. VTE Core Measure Inpt VTE Proph given/why not?: Unfractionated heparin SQ, Warfarin (Coumadin) [place] Drug Monitoring Program Search Results: patient reviewed within database Additional Copies To Nikki Peters M.D.
[2016-06-14] MEDS ORDERED: DXY100 PO (12:13)
[2016-06-14] MEDS ORDERED: PRED10TA PO (12:13)
[2016-08-07] MEDS ORDERED: PRED-301 PO (16:15)
[2016-08-07] MEDS ORDERED: CARV6.252 PO (16:15)
[2016-08-07] MEDS ORDERED: LORA-741 PO (19:00)
== END 2016-04-02 16:39 | disposition home health service (06) | DRG 176 ==
LOC: ENRESERVDT → ENRESERVTM → C.EDB 11:42 → C.MS4W 15:18
PROVIDERS: ADMIT Hospitalist; ATTEND Internal Medicine
DX: I26.99 Other pulmonary embolism without acute cor pulmonale (principal); I50.32 Chronic diastolic (congestive) heart failure; I13.0 Hypertensive heart and chronic kidney disease with heart failure and stage 1 through stage 4 chronic kidney disease, or unspecified chronic kidney disease; N39.0 Urinary tract infection, site not specified; S37.39XA Other injury of urethra, initial encounter; F03.90 Unspecified dementia, unspecified severity, without behavioral disturbance, psychotic disturbance, mood disturbance, and anxiety; F41.9 Anxiety disorder, unspecified; I25.10 Atherosclerotic heart disease of native coronary artery without angina pectoris; N18.3 Chronic kidney disease, stage 3 (moderate); E78.5 Hyperlipidemia, unspecified; E03.9 Hypothyroidism, unspecified; Z87.891 Personal history of nicotine dependence; Z66 Do not resuscitate; R32 Unspecified urinary incontinence; E78.00 Pure hypercholesterolemia, unspecified; M19.90 Unspecified osteoarthritis, unspecified site; H91.90 Unspecified hearing loss, unspecified ear; N28.89 Other specified disorders of kidney and ureter; X58.XXXA Exposure to other specified factors, initial encounter; R31.0 Gross hematuria; G47.00 Insomnia, unspecified; Z79.82 Long term (current) use of aspirin; Z79.899 Other long term (current) drug therapy; Z87.11 Personal history of peptic ulcer disease; Z85.46 Personal history of malignant neoplasm of prostate; Z90.79 Acquired absence of other genital organ(s); Z90.49 Acquired absence of other specified parts of digestive tract; Z82.49 Family history of ischemic heart disease and other diseases of the circulatory system

== ENCOUNTER 2016-06-10 10:09 | Emergency (ER) | payer OTHER ==
[~2016-06-10] VITALS: Ht 182.9 cm; Wt 96.4 kg
[~2016-06-10 10:09] MED LIST changes: +AMB5 PO; -ASPEC81 PO; +CMD3 PO; +FERR1TAB13 PO; -FRRS300 PO; +LATA0.5S OPL; -LEVO1TAB50 PO; +LEVO75TA PO; +OXYB10TA PO; +RXC5 PO; -SOMNAPURE PO
[2016-06-10 10:20] VITALS: TEMP 36.8; Ht 182.9 cm; Wt 96.4 kg
--- NOTE | 2016-06-10 11:02 | DIAGNOSTIC IMAGING REPORT ---
SINGLE VIEW CHEST CLINICAL HISTORY: Dyspnea. FINDINGS: An AP, portable, upright chest radiograph is compared to chest x-ray and chest CT dated 03/27/2016. The examination is degraded by portable technique and patient rotation. The heart is enlarged and there is atherosclerotic calcification with uncoiling of the thoracic aorta. There is mild pulmonary vascular congestion. There is chronic elevation of the right hemidiaphragm. Patchy airspace consolidation is seen at the left lung base. No large pleural effusion or pneumothorax is seen. The skeletal structures are osteopenic. Degenerative change is noted throughout the thoracic spine. IMPRESSION: 1. Cardiomegaly with mild pulmonary vascular congestion. 2. Patchy airspace consolidation is seen at the left lung base. This could represent atelectasis and/or developing pneumonia. Clinical correlation will be required. Electronically signed by: Abhi Cabrera M.D. 06/10/2016 11:00 AM Dictated Date/Time: 06/10/2016 10:59 AM
[2016-06-10 11:36] LABS: BASO % 0.1 %; BASO ABS # 0.01 K/uL (0-0.2); COMPLETE YES; HEMATOCRIT 36.5 % (42-52); IG% 0.1 %; LYMPH % 2.8 %; LYMPH ABS # 0.19 K/uL (1.2-3.4); MEAN CORPUSCULAR HEMOGLOBIN 29.5 pg (25-34); MEAN CORPUSCULAR HGB CONC 33.2 g/dl (32-36); MEAN PLATELET VOLUME 10.4 fL (7.4-10.4); MONO % 6.7 %; NEUT % 90.3 %; PLATELET COUNT 132 K/uL (130-400); WHITE BLOOD COUNT 6.88 K/uL (4.8-10.8)
[2016-06-10 11:45] LABS: INR 2.2 (0.9-1.1); PROTHROMBIN TIME (PATIENT) 24.8 SECONDS (9.0-12.0)
[2016-06-10 11:53] LABS: ALT/SGPT 14 U/L (12-78); AST/SGOT 16 U/L (15-37); BLOOD UREA NITROGEN 20 mg/dl (7-18); BUN/CREATININE RATIO 16.8 (10-20); CALCIUM 8.6 mg/dl (8.5-10.1); CARBON DIOXIDE 27 mmol/L (21-32); CHLORIDE 100 mmol/L (98-107); GLUCOSE 156 mg/dl (70-99); POTASSIUM 3.8 mmol/L (3.5-5.1); SODIUM 136 mmol/L (136-145)
[2016-06-10 11:57] LABS: ALKALINE PHOSPHATASE 74 U/L (45-117)
--- NOTE | 2016-06-10 12:11 | DIAGNOSTIC IMAGING REPORT ---
RIGHT LOWER EXTREMITY VENOUS DOPPLER HISTORY: Right leg larger then left Right COMPARISON STUDY: 03/27/2016. FINDINGS: There is normal compressibility, flow, and augmentation within the right lower extremity deep venous system. Mild subcutaneous edema within the right leg. IMPRESSION: No DVT within the right lower extremity Electronically signed by: Arden Calle M.D. 06/10/2016 12:09 PM Dictated Date/Time: 06/10/2016 12:08 PM
[2016-06-10] MEDS ORDERED: WARF3TAB6 PO ×2 (12:25)
[2016-06-10] MEDS ORDERED: MELATAB2 PO (12:25)
[2016-06-10] MEDS ORDERED: OPTIRAY 320 IV PRN (13:15)
--- NOTE | 2016-06-10 13:20 | DIAGNOSTIC IMAGING REPORT ---
CT SCAN OF THE ABDOMEN AND PELVIS WITH IV CONTRAST CLINICAL HISTORY: Generalized abdominal pain. Vomiting. COMPARISON STUDY: Prior abdominal CT scans, most recently dated 03/27/2016. TECHNIQUE: Following the IV administration of 93 cc of Optiray 320, CT scan of the abdomen and pelvis is performed from the lung bases to the proximal femora. Images reviewed in the axial, sagittal, and coronal planes. IV contrast was administered without complication. CT DOSE: 1237.50 mGycm FINDINGS: Lung bases: The heart is enlarged and without pericardial effusion. The coronary arteries are densely calcified. The pulmonary trunk is dilated measuring up to 4.0 cm. This suggests pulmonary hypertension. Emphysematous changes are noted. Fibrotic changes present at both lung bases. No airspace consolidation or pleural effusion is identified. There are scattered calcified granulomas. Liver: The contrast-enhanced liver is normal in size, contour, and attenuation. There is no intrahepatic biliary ductal dilatation. The hepatic veins and portal veins are patent. Gallbladder: Unremarkable. Spleen: Normal in size and attenuation. Pancreas: There is moderate glandular atrophy. An 10 mm IPMN is again suggested in the pancreatic head on axial image #185. Adrenal glands: Unremarkable. Kidneys: The contrast enhanced kidneys are atrophic and without hydronephrosis. The kidneys enhance symmetrically. A 7 cm cyst arises from the lower pole of the left kidney. Additional small cysts are seen bilaterally. There is a 1.5 cm low-attenuation lesion in the upper pole of the left kidney anteriorly seen on image #210. This does not meet CT criteria for a simple cyst. Abdominal vasculature: There is advanced atherosclerotic calcification of the abdominal aorta and its major branches. There is been aortobiiliac stent graft repair of an infrarenal abdominal aneurysm. The residual aneurysm sac measures 4.7 cm in AP diameter and 4.8 cm in transverse diameter. Contrast is again seen between overlapping portions of 2 aortic stents seen on image #254, possibly reflecting endoleak. 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 This measures up to 2.6 cm on the right and 2.5 cm on the left. 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 Bowel: The small bowel and colon are normal in course and caliber. There is advanced colonic diverticulosis without CT evidence of acute diverticulitis. The appendix is not identified and reported surgically absent. Peritoneum: There is no intraperitoneal free air or abdominal ascites. There is a small fat-containing umbilical hernia. Lymphadenopathy: None. Pelvic viscera: The bladder is decompressed. A 1.8 cm calcified lesion is again seen within the left base of the bladder on image #497. The prostate gland is surgically absent. A penile prosthesis is in place. The reservoir is present in the right anterior pelvis. Numerous surgical clips are present in the pelvis. Skeletal structures: The skeletal structures are osteopenic. There is moderate lumbosacral spondylosis. No lytic or blastic bony lesions are seen. Advanced degenerative changes are also seen in the sacroiliac joints. Mild compression deformity is noted in L5. IMPRESSION: 1. There are no acute infectious or inflammatory findings in the abdomen or pelvis. 2. Cardiomegaly and emphysema. 3. Again seen are postoperative changes from aortobiiliac stent graft repair of an abdominal aneurysm. The residual aneurysm sac measures 4.7 x 4.8 cm. The stent is patent. 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 4. There is contrast seen between 2 overlapping components of the aortic stent, possibly reflecting endoleak. This is unchanged from prior studies. 5. Advanced colonic diverticulosis without CT evidence of acute diverticulitis. 6. The prostate gland is surgically absent. 7. A calcified nodule measuring 1.8 cm again suggested within the left base of the bladder. A bladder neoplasm is not excluded. Follow-up with urology is recommended. 8. Additional changes as above. Electronically signed by: Abhi Cabrera M.D. 06/10/2016 1:18 PM Dictated Date/Time: 06/10/2016 1:08 PM
[2016-06-10] MEDS ORDERED: LEVO-366 PO (13:40)
[2016-06-10] MEDS ORDERED: LEVOFLOXACIN 250 MG TAB PO ONE (13:45)
[2016-06-10 14:01] VITALS: BP 125/68; PULSE 76; O2SAT 94
--- NOTE | 2016-06-10 16:20 | EMERGENCY ROOM VISIT NOTE ---
History Report prepared by Jaydenibdeana: Aj Parham Under the Supervision of: Dr. Prasad Seo D.O. First contact with patient: 10:31 Chief Complaint: SHORTNESS OF BREATH Stated Complaint: SOB History of Present Illness The patient is an 86 year old male who presents to the Emergency Room with complaints of persistent shortness of breath that started last night. The patient notes that he was just sitting at his computer when the difficulty breathing started. The patient also complains of vomiting that started this morning. He notes he had two episodes of vomiting this morning before he presented to the ED. The patient notes that he does not usually wear oxygen at home. He adamantly denies any chest pain shortness of breath. He admits to persistent coughing but notes that this has been present for the past 10 years. He notes that this has slightly worsened over the past 2 days. He is uncertain if his sputum has changed. No exertional symptoms. No significant weight gain. Pt denies headache, change in vision, fevers, chest pain or heaviness, diarrhea, pain with urination, and melena. Source of History: patient Onset: last night Position: other (global) Timing: other (persistent) Associated Symptoms: + vomiting, No SOB, No chest pain, No diarrhea, No fevers, No headache, No melena, No urinary symptoms Note: Denies: vision changes Review of Systems See HPI for pertinent positives & negatives. A total of 10 systems reviewed and were otherwise negative. Past Medical & Surgical Medical Problems: (1) AAA (abdominal aortic aneurysm) (2) Anxiety (3) CAD (coronary artery disease) (4) CKD (chronic kidney disease) stage 3, GFR 30-59 ml/min (5) Diastolic CHF (6) Dyslipidemia (7) HTN (hypertension) (8) Hypothyroid (9) Left hip pain (10) Lesion of right [place] kidney (11) Prostate cancer (12) Pulmonary embolus Surgical Problems: (1) duodenal ulcer repair (2) H/O prostatectomy (3) H/O right inguinal hernia repair (4) History of AAA (abdominal aortic aneurysm) repair (5) History of appendectomy (6) History of cataract surgery (7) History of endarterectomy Family History Hypertension Social History Smoking Status: Former Smoker Alcohol Use: none Drug Use: none Marital Status: Housing Status: lives with significant other Occupation Status: retired Current/Historical Medications Scheduled Cholecalciferol (Vitamin D3), 1 TAB PO DAILY Ferrous Sulfate ( Ferrous Sulfate), 1 TAB PO DAILY Furosemide (Lasix), 20 MG PO DAILY Latanoprost (Xalatan 0.005% Oph Irma), 1 DROPS OPL HS Levofloxacin (Levaquin), 500 MG PO DAILY Levothyroxine Sodium (Synthroid), 75 MCG PO DAILY Melatonin (Melatonin Maximum Strengt), 1 TAB PO HS Oxybutynin Chloride Er (Ditropan Xl), 1 TAB PO DAILY Pantoprazole (Pantoprazole Sodium), 40 MG PO BID Sennosides-Docusate Sodium (Senexon-S), 1 TAB PO HS Sertraline (Zoloft), 50 MG PO DAILY Warfarin Sod (Jantoven), 3 MG PO 3XWK Warfarin Sod (Jantoven), 1.5 MG PO 4XWK Scheduled PRN Albuterol Hfa (Ventolin Hfa), 2 PUFFS PO Q4H PRN for Wheezing Nitroglycerin (Nitrostat), 0.4 MG UT UD PRN for Chest Pain Allergies Coded Allergies: No Known Allergies (Unverified , 06/10/16) Physical Exam Vital Signs Date Time Temp Pulse Resp B/P Pulse Ox O2 Delivery O2 Flow Rate FiO2 06/10/16 14:01 76 20 125/68 94 06/10/16 13:55 77 06/10/16 13:12 70 124/67 97 Nasal Cannula 2.0 06/10/16 11:16 76 20 121/59 95 Nasal Cannula 2.0 06/10/16 10:20 36.8 80 20 155/83 93 Nasal Cannula 2.0 06/10/16 10:20 93 Nasal Cannula 2.0 06/10/16 10:17 78 Physical Exam GENERAL: sitting up in bed, chronically ill appearing, disheveled. EYE EXAM: normal conjunctiva OROPHARYNX: no exudate, no erythema, lips, buccal mucosa, and tongue normal and mucous membranes are moist NECK: supple, no nuchal rigidity, no adenopathy, non-tender LUNGS: Coarse sounds at bilateral bases HEART: no murmurs, S1 normal and S2 normal ABDOMEN: abdomen soft, non-tender, normo-active bowel sounds, no masses, no rebound or guarding. Multiple old abdominals incisions, well-healed. BACK: Back is symmetrical on inspection and there is no deformity, no midline tenderness, no CVA tenderness. SKIN: no rashes and no bruising UPPER EXTREMITIES: upper extremities are grossly normal. LOWER EXTREMITIES: No pitting edema. NEURO EXAM: Normal sensorium, cranial nerves II-XII grossly intact, normal speech, no gross weakness of arms, no gross weakness of legs. Gross sensation intact. , Medical Decision & Procedures ER Provider Diagnostic Interpretation: Radiology results as stated below per my review and the radiologist's interpretation: SINGLE VIEW CHEST CLINICAL HISTORY: Dyspnea. FINDINGS: An AP, portable, upright chest radiograph is compared to chest x-ray and chest CT dated 03/27/2016. The examination is degraded by portable technique and patient rotation. The heart is enlarged and there is atherosclerotic calcification with uncoiling of the thoracic aorta. There is mild pulmonary vascular congestion. There is chronic elevation of the right hemidiaphragm. Patchy airspace consolidation is seen at the left lung base. No large pleural effusion or pneumothorax is seen. The skeletal structures are osteopenic. Degenerative change is noted throughout the thoracic spine. IMPRESSION: 1. Cardiomegaly with mild pulmonary vascular congestion. 2. Patchy airspace consolidation is seen at the left lung base. This could represent atelectasis and/or developing pneumonia. Clinical correlation will be required. Electronically signed by: Abhi Cabrera M.D. 06/10/2016 11:00 AM Dictated Date/Time: 06/10/2016 10:59 AM RIGHT LOWER EXTREMITY VENOUS DOPPLER HISTORY: Right leg larger then left Right COMPARISON STUDY: 03/27/2016. FINDINGS: There is normal compressibility, flow, and augmentation within the right lower extremity deep venous system. Mild subcutaneous edema within the right leg. IMPRESSION: No DVT within the right lower extremity Electronically signed by: Arden Calle M.D. 06/10/2016 12:09 PM Dictated Date/Time: 06/10/2016 12:[address] SCAN OF THE ABDOMEN AND PELVIS WITH IV CONTRAST CLINICAL HISTORY: Generalized abdominal pain. Vomiting. COMPARISON STUDY: Prior abdominal CT scans, most recently dated 03/27/2016. TECHNIQUE: Following the IV administration of 93 cc of Optiray 320, CT scan of the abdomen and pelvis is performed from the lung bases to the proximal femora. Images reviewed in the axial, sagittal, and coronal planes. IV contrast was administered without complication. CT DOSE: 1237.50 mGycm FINDINGS: Lung bases: The heart is enlarged and without pericardial effusion. The coronary arteries are densely calcified. The pulmonary trunk is dilated measuring up to 4.0 cm. This suggests pulmonary hypertension. Emphysematous changes are noted. Fibrotic changes present at both lung bases. No airspace consolidation or pleural effusion is identified. There are scattered calcified granulomas. Liver: The contrast-enhanced liver is normal in size, contour, and attenuation. There is no intrahepatic biliary ductal dilatation. The hepatic veins and portal veins are patent. Gallbladder: Unremarkable. Spleen: Normal in size and attenuation. Pancreas: There is moderate glandular atrophy. An 10 mm IPMN is again suggested in the pancreatic head on axial image #185. Adrenal glands: Unremarkable. Kidneys: The contrast enhanced kidneys are atrophic and without hydronephrosis. The kidneys enhance symmetrically. A 7 cm cyst arises from the lower pole of the left kidney. Additional small cysts are seen bilaterally. There is a 1.5 cm low-attenuation lesion in the upper pole of the left kidney anteriorly seen on image #210. This does not meet CT criteria for a simple cyst. Abdominal vasculature: There is advanced atherosclerotic calcification of the abdominal aorta and its major branches. There is been aortobiiliac stent graft repair of an infrarenal abdominal aneurysm. The residual aneurysm sac measures 4.7 cm in AP diameter and 4.8 cm in transverse diameter. Contrast is again seen between overlapping portions of 2 aortic stents seen on image #254, possibly reflecting endoleak. 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 This measures up to 2.6 cm on the right and 2.5 cm on the left. 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 Bowel: The small bowel and colon are normal in course and caliber. There is advanced colonic diverticulosis without CT evidence of acute diverticulitis. The appendix is not identified and reported surgically absent. Peritoneum: There is no intraperitoneal free air or abdominal ascites. There is a small fat-containing umbilical hernia. Lymphadenopathy: None. Pelvic viscera: The bladder is decompressed. A 1.8 cm calcified lesion is again seen within the left base of the bladder on image #497. The prostate gland is surgically absent. A penile prosthesis is in place. The reservoir is present in the right anterior pelvis. Numerous surgical clips are present in the pelvis. Skeletal structures: The skeletal structures are osteopenic. There is moderate lumbosacral spondylosis. No lytic or blastic bony lesions are seen. Advanced degenerative changes are also seen in the sacroiliac joints. Mild compression deformity is noted in L5. IMPRESSION: 1. There are no acute infectious or inflammatory findings in the abdomen or pelvis. 2. Cardiomegaly and emphysema. 3. Again seen are postoperative changes from aortobiiliac stent graft repair of an abdominal aneurysm. The residual aneurysm sac measures 4.7 x 4.8 cm. The stent is patent. 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 4. There is contrast seen between 2 overlapping components of the aortic stent, possibly reflecting endoleak. This is unchanged from prior studies. 5. Advanced colonic diverticulosis without CT evidence of acute diverticulitis. 6. The prostate gland is surgically absent. 7. A calcified nodule measuring 1.8 cm again suggested within the left base of the bladder. A bladder neoplasm is not excluded. Follow-up with urology is recommended. 8. Additional changes as above. Electronically signed by: Abhi Cabrera M.D. 06/10/2016 1:18 PM Dictated Date/Time: 06/10/2016 1:08 PM Laboratory Results 06/10/16 11:10 Red Blood Count 4.10, Mean Corpuscular Volume 89.0, Mean Corpuscular Hemoglobin 29.5, Mean Corpuscular Hemoglobin Concent 33.2, Mean Platelet Volume 10.4, Neutrophils (%) (Auto) 90.3, Lymphocytes (%) (Auto) 2.8, Monocytes (%) (Auto) 6.7, Eosinophils (%) (Auto) 0.0, Basophils (%) (Auto) 0.1, Neutrophils # (Auto) 6.21, Lymphocytes # (Auto) 0.19, Monocytes # (Auto) 0.46, Eosinophils # (Auto) 0.00, Basophils # (Auto) 0.01 06/10/16 11:10 Test 06/10/16 11:10 White Blood Count 6.88 K/uL (4.8-10.8) Red Blood Count 4.10 M/uL (4.7-6.1) Hemoglobin 12.1 g/dL (14.0-18.0) Hematocrit 36.5 % (42-52) Mean Corpuscular Volume 89.0 fL (80-100) Mean Corpuscular Hemoglobin 29.5 pg (25-34) Mean Corpuscular Hemoglobin Concent 33.2 g/dl (32-36) Platelet Count 132 K/uL (130-400) Mean Platelet Volume 10.4 fL (7.4-10.4) Neutrophils (%) (Auto) 90.3 % Lymphocytes (%) (Auto) 2.8 % Monocytes (%) (Auto) 6.7 % Eosinophils (%) (Auto) 0.0 % Basophils (%) (Auto) 0.1 % Neutrophils # (Auto) 6.21 K/uL (1.4-6.5) Lymphocytes # (Auto) 0.19 K/uL (1.2-3.4) Monocytes # (Auto) 0.46 K/uL (0.11-0.59) Eosinophils # (Auto) 0.00 K/uL (0-0.5) Basophils # (Auto) 0.01 K/uL (0-0.2) RDW Standard Deviation 45.6 fL (36.4-46.3) RDW Coefficient of Variation 13.8 % (11.5-14.5) Immature Granulocyte % (Auto) 0.1 % Immature Granulocyte # (Auto) 0.01 K/uL (0.00-0.02) Prothrombin Time 24.8 SECONDS (9.0-12.0) Prothromb Time International Ratio 2.2 (0.9-1.1) Anion Gap 9.0 mmol/L (3-11) Est Creatinine Clear Calc Drug Dose 51.2 ml/min Estimated GFR () 62.2 Estimated GFR (Non- 53.7 BUN/Creatinine Ratio 16.8 (10-20) Calcium Level 8.6 mg/dl (8.5-10.1) Total Bilirubin 0.5 mg/dl (0.2-1) Direct Bilirubin < 0.1 mg/dl (0-0.2) Aspartate Amino Transf (AST/SGOT) 16 U/L (15-37) Alanine Aminotransferase (ALT/SGPT) 14 U/L (12-78) Alkaline Phosphatase 74 U/L (45-117) Troponin I < 0.015 ng/ml (0-0.045) Total Protein 7.3 gm/dl (6.4-8.2) Albumin 3.3 gm/dl (3.4-5.0) Lipase 84 U/L (73-393) Laboratory results per my review. Medications Administered Medications (Trade) Dose Ordered Sig/Amilcar Route Start Time Stop Time Status Last Admin Dose Admin Levofloxacin (Levaquin Tab) 500 mg NOW ONCE PO 06/10/16 13:45 06/10/16 13:46 DC 06/10/16 13:54 500 MG Procedure Tick Removal: I removed a tick from the left upper back of the patient. The tick was intact. No bulls-eye was present. Patient tolerated the procedure well. The tick was removed with a tick removal device. ECG Indication: SOB/dyspnea Rate (beats per minute): 78 Rhythm: sinus rhythm Findings: 1st degree AV block, left axis deviation Change: no significant change (when compared to March 27, 2016.) ED Course ED COURSE: Vital signs were reviewed and showed hypoxic. The patients medical record was reviewed The above diagnostic studies were performed and reviewed. ED treatments and interventions as stated above. 1034: The patient was evaluated in room B11. A complete history and physical examination was performed. On exam, I removed a live tick from the patient's back. See procedure note above for more details. 1345: Ordered Levaquin Tab 500 mg PO. 1337: Upon reevaluation, the patient is resting comfortably.I discussed my findings with the patient and suggested admission to the hospital. The patient refuses admission to the hospital and states he wants to go home. I explained the risks and benefits of discharge to the patient and his son. His son is sitting at bedside and states there is no changing the patient's mind if he wants to go home. Based on the patients age, coexisting illnesses, exam and lab findings the decision to treat as an outpatient was made. The patient remained stable while under my care. Medical Decision Differential diagnoses includes but is not limited to pneumonia, bronchitis, COPD/Asthma exacerbation, pneumothorax, pulmonary embolism, congestive heart failure, acute coronary syndrome Patient is an 86-year-old male who presents to the ER for shortness of breath. He notes that this has been present for today. Vitals are remarkable for a mild hypoxia. Does have a previous history of PEs but is on blood thinners. Labs show no significant leukocytosis or anemia. BMP along with LFTs, bilirubin , lipase and troponin are negative. EKG was unchanged from his previous. INR was 2.2. Chest x-ray supports a questionable left lower lobe infiltrate. With his persistent vomiting prior to arrival CT of his abdomen and pelvis was performed and was negative for any acute pathology. It also did not support an infiltrate in his left lower lobe. Pulse ox has been persistently in the low 90s and intermittently floats to 89-88. With his age and symptoms I recommended admission at this time. He declined adamantly if his son at bedside. I explained the risk and benefits of this and he notes that he must go home to take care of his . The son offer to watch the but the patient declined. I initially did not CT PE him with the negative right lower extremity ultrasound and therapeutic INR. As the patient wishes to go home I recommended a CT PE but he declined. I once again explained the risk and benefits of this. He notes he is okay with dying. He'll come back later if needed. I had care management evaluate the patient in order to set up an outpatient follow-up which he initially declined but was eventually susceptible/ agreeable to. Patient was discharged following informed refusal of care. Discussed with Pt concerning signs and symptoms to watch out for. Pt was instructed to follow up with their PCP and discussed with the patient their option to return to the ED at anytime for persistent or worsening symptoms. The appropriate anticipatory guidance and out-patient management, including indications for return to the emergency department, were explained at length to the patient and understood. Impression Primary Impression: Shortness of breath Additional Impressions: Hypoxia Tick bite Scribe Attestation The scribe's documentation has been prepared under my direction and personally reviewed by me in its entirety. I confirm that the note above accurately reflects all work, treatment, procedures, and medical decision making performed by me. Departure Information Dispostion Home / Self-Care Prescriptions Levofloxacin (Levaquin) 500 Mg Tab 500 MG PO DAILY for 9 Days, TAB Prov: Prasad Seo, 06/10/16 Referrals Nikki Peters M.D. (PCP) Forms HOME CARE DOCUMENTATION FORM, IMPORTANT VISIT INFORMATION Patient Instructions ED Dyspnea Shortness of Breath, My [facility] Additional Instructions Please follow up with your primary care doctor with in the next 24 hours. Any worsening of your symptoms, please return to the ED immediately. This includes passing out, worsening shortness of breath, chest pain, or any other concerning signs or symptoms from your standpoint. Please take your antibiotics as prescribed. Problem Qualifiers
[2016-06-14] MEDS ORDERED: PRED10TA PO (12:13)
[2016-06-14] MEDS ORDERED: DXY100 PO (12:13)
[2016-08-07] MEDS ORDERED: PRED-301 PO (16:15)
[2016-08-07] MEDS ORDERED: CARV6.252 PO (16:15)
[2016-08-07] MEDS ORDERED: LORA-741 PO (19:00)
== END 2016-06-10 14:04 | disposition home or self-care (01) ==
LOC: EDBD 10:09 → C.EDB 10:10
DX: R06.02 Shortness of breath (principal); R09.02 Hypoxemia; T14.8 Other injury of unspecified body region; W57.XXXA Bitten or stung by nonvenomous insect and other nonvenomous arthropods, initial encounter; I44.0 Atrioventricular block, first degree

== ENCOUNTER 2016-06-10 22:01 | Inpatient (IN) | payer OTHER ==
[~2016-06-10] VITALS: Ht 185.4 cm; Wt 91.2 kg
[~2016-06-10 22:01] MED LIST changes: +LEVO-366 PO; +MELATAB2 PO; +WARF3TAB6 PO
[2016-06-10] MEDS ORDERED: CEFTRIAXONE SOD INJ 1 GM ADDVIAL IV STA (22:09)
--- NOTE | 2016-06-10 22:36 | DIAGNOSTIC IMAGING REPORT ---
CHEST ONE VIEW PORTABLE CLINICAL HISTORY: EVALUATE RESPIRATORY DISTRESS. DYSPNEA dyspnea COMPARISON STUDY: 06/10/2016 10:52 AM FINDINGS: Chronic elevation right hemidiaphragm. Mild stable cardia megaly. Minimal parenchymal infiltrate left base unchanged. Minimal atelectasis right base. Pulmonary vascular congestion improved. IMPRESSION: Improved pulmonary vascular congestion. Unchanging parenchymal infiltrate left base. Electronically signed by: Mike Paulson M.D. 06/10/2016 10:34 PM Dictated Date/Time: 06/10/2016 10:33 PM
[2016-06-10 22:39] LABS: ISTAT HEMOGLOBIN 12.6 g/dl (14.0-18.0); ISTAT IONIZED CALCIUM 1.02 mmol/l (1.12-1.32)
[2016-06-10 22:44] LABS: BASO % 0.1 %; BASO ABS # 0.01 K/uL (0-0.2); COMPLETE YES; IG% 0.1 %; LYMPH % 6.5 %; LYMPH ABS # 0.46 K/uL (1.2-3.4); MEAN CELL VOLUME 88.5 fL (80-100); MEAN CORPUSCULAR HEMOGLOBIN 29.7 pg (25-34); MEAN CORPUSCULAR HGB CONC 33.6 g/dl (32-36); MEAN PLATELET VOLUME 10.1 fL (7.4-10.4); MONO % 8.2 %; NEUT % 85.1 %; PLATELET COUNT 128 K/uL (130-400); RED BLOOD COUNT 4.07 M/uL (4.7-6.1); WHITE BLOOD COUNT 7.11 K/uL (4.8-10.8)
[2016-06-11] VITALS (15 sets, daily range): BP systolic 93–117; BP diastolic 50–65; PULSE 58–78; TEMP 36.5–36.7; O2SAT 91–97; Ht 185.4 cm; Wt 91.2 kg
--- NOTE | 2016-06-11 00:23 | EMERGENCY ROOM VISIT NOTE ---
History Report prepared by Sydney: Melvin Peguero Under the Supervision of: Dr. Bobby Andrade M.D. First contact with patient: 21:57 Chief Complaint: SHORTNESS OF BREATH Stated Complaint: SOB History of Present Illness The patient is an 86 year old who presents to the Emergency Room with complaints of persistent shortness of breath beginning one day prior to arrival. As per EMS, the patient was in the ED this morning for the same symptoms. EMS notes the patient received one Duoneb treatment on the way in, which has helped his breathing. The patient's family convinced the patient to return to the ED for admission, and the patient is willing to stay. The family states the patient experienced nausea and vomiting after leaving the hospital today, as well. It is noted the patient is on Coumadin. Pt denies LOC, headache , fevers, chills, diaphoresis, visual changes, neck pain, chest pain, abdominal pain, back pain, melena, hematochezia, urinary symptoms, numbness, weakness, lymphadenopathy, rash, or other complaints. It is noted the patient was evaluated by Dr. Seo this morning for shortness of breath and some vomiting. The patient associates a chronic cough with his symptoms. He denied chest pain and fever at that time. It is noted the patient has possible pneumonia on the left side after this morning's evaluation. The patient was placed on oral Levaquin and his INR was therapeutic. The patient was advised to be admitted but he refused at that time. Source of History: patient, EMS Onset: one day prior to arrival Position: other (global) Quality: other (SOB) Timing: other (persistent) Associated Symptoms: + SOB, + cough, + nausea, + vomiting Review of Systems See HPI for pertinent positives and negatives. A total of ten systems were reviewed and were otherwise negative. 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 (11) Pneumonia (12) Prostate cancer (13) Pulmonary embolus Surgical Problems: (1) duodenal ulcer repair (2) H/O prostatectomy (3) H/O right inguinal hernia repair (4) History of AAA (abdominal aortic aneurysm) repair (5) History of appendectomy (6) History of cataract surgery (7) History of endarterectomy Family History Hypertension Social History Smoking Status: Former Smoker Alcohol Use: none Drug Use: none Marital Status: Housing Status: lives with significant other Occupation Status: retired Current/Historical Medications Scheduled Cholecalciferol (Vitamin D3), 1 TAB PO DAILY Furosemide (Lasix), 20 MG PO DAILY Latanoprost (Xalatan 0.005% Oph Irma), 1 DROPS OPL HS Levofloxacin (Levaquin), 500 MG PO DAILY Levothyroxine Sodium (Synthroid), 75 MCG PO DAILY Melatonin (Melatonin Maximum Strengt), 1 TAB PO HS Oxybutynin Chloride Er (Ditropan Xl), 1 TAB PO DAILY Pantoprazole (Pantoprazole Sodium), 40 MG PO BID Sennosides-Docusate Sodium (Senexon-S), 1 TAB PO HS Sertraline (Zoloft), 50 MG PO DAILY Warfarin Sod (Jantoven), 3 MG PO 5XWK Warfarin Sod (Jantoven), 1.5 MG PO 2XWK Scheduled PRN Albuterol Hfa (Ventolin Hfa), 2 PUFFS PO Q4H PRN for Wheezing Nitroglycerin (Nitrostat), 0.4 MG UT UD PRN for Chest Pain Allergies Coded Allergies: No Known Allergies (Unverified , 06/10/16) Physical Exam Vital Signs Date Time Temp Pulse Resp B/P Pulse Ox O2 Delivery O2 Flow Rate FiO2 06/10/16 23:50 72 18 103/53 95 Nasal Cannula 2.0 06/10/16 22:23 66 06/10/16 22:20 94 Nasal Cannula 06/10/16 22:19 Nasal Cannula 2.0 06/10/16 22:03 36.4 83 22 150/70 91 Room Air 06/10/16 22:03 Room Air Physical Exam GENERAL: Awake, alert, mildly dyspneic-appearing, in no distress HENT: Normocephalic, atraumatic. Oropharynx unremarkable. EYES: Normal conjunctiva. Sclera non-icteric. NECK: Supple. No nuchal rigidity. FROM. No JVD. RESPIRATORY: Mildly dyspneic. CARDIAC: Regular rate, normal rhythm. Extremities warm and well perfused. Pulses equal. ABDOMEN: Soft, non-distended. No tenderness to palpation. No rebound or guarding. No masses. RECTAL: Deferred. MUSCULOSKELETAL: Chest examination reveals no tenderness. The back is symmetrical on inspection without obvious abnormality. There is no CVA tenderness to palpation. No joint edema. LOWER EXTREMITIES: 1+ lower extremity edema. Calves are equal size bilaterally and non-tender. No discoloration. NEURO: Normal sensorium. No sensory or motor deficits noted. SKIN: No rash or jaundice noted. Medical Decision & Procedures ER Provider Diagnostic Interpretation: X-ray: Per my interpretation, radiologist review. CHEST ONE VIEW PORTABLE CLINICAL HISTORY: EVALUATE RESPIRATORY DISTRESS. DYSPNEA dyspnea COMPARISON STUDY: 06/10/2016 10:52 AM FINDINGS: Chronic elevation right hemidiaphragm. Mild stable cardia megaly. Minimal parenchymal infiltrate left base unchanged. Minimal atelectasis right base. Pulmonary vascular congestion improved. IMPRESSION: Improved pulmonary vascular congestion. Unchanging parenchymal infiltrate left base. Electronically signed by: Mike Paulson M.D. 06/10/2016 10:34 PM Laboratory Results 06/10/16 22:15 Red Blood Count 4.07, Mean Corpuscular Volume 88.5, Mean Corpuscular Hemoglobin 29.7, Mean Corpuscular Hemoglobin Concent 33.6, Mean Platelet Volume 10.1, Neutrophils (%) (Auto) 85.1, Lymphocytes (%) (Auto) 6.5, Monocytes (%) (Auto) 8.2, Eosinophils (%) (Auto) 0.0, Basophils (%) (Auto) 0.1, Neutrophils # (Auto) 6.05, Lymphocytes # (Auto) 0.46, Monocytes # (Auto) 0.58, Eosinophils # (Auto) 0.00, Basophils # (Auto) 0.01 Test 06/10/16 22:15 06/10/16 22:20 06/10/16 22:25 White Blood Count 7.11 K/uL (4.8-10.8) Red Blood Count 4.07 M/uL (4.7-6.1) Hemoglobin 12.1 g/dL (14.0-18.0) Hematocrit 36.0 % (42-52) Mean Corpuscular Volume 88.5 fL (80-100) Mean Corpuscular Hemoglobin 29.7 pg (25-34) Mean Corpuscular Hemoglobin Concent 33.6 g/dl (32-36) Platelet Count 128 K/uL (130-400) Mean Platelet Volume 10.1 fL (7.4-10.4) Neutrophils (%) (Auto) 85.1 % Lymphocytes (%) (Auto) 6.5 % Monocytes (%) (Auto) 8.2 % Eosinophils (%) (Auto) 0.0 % Basophils (%) (Auto) 0.1 % Neutrophils # (Auto) 6.05 K/uL (1.4-6.5) Lymphocytes # (Auto) 0.46 K/uL (1.2-3.4) Monocytes # (Auto) 0.58 K/uL (0.11-0.59) Eosinophils # (Auto) 0.00 K/uL (0-0.5) Basophils # (Auto) 0.01 K/uL (0-0.2) RDW Standard Deviation 45.9 fL (36.4-46.3) RDW Coefficient of Variation 14.1 % (11.5-14.5) Immature Granulocyte % (Auto) 0.1 % Immature Granulocyte # (Auto) 0.01 K/uL (0.00-0.02) Bedside Lactic Acid Venous 1.18 mmol/L (0.90-1.70) Bedside Troponin I 0.040 ng/ml (0-0.045) Bedside Hemoglobin 12.6 g/dl (14.0-18.0) Bedside Hematocrit 37 % (42-52) Bedside Sodium 131 mEq/L (135-144) Bedside Potassium 3.9 mEq/L (3.3-5.0) Bedside Chloride 95 mEq/L (101-112) Bedside Total CO2 22 mEq/l (24-31) Anion Gap 18.0 mmol/L (16-25) Bedside Blood Urea Nitrogen 21 mg/dl (7-18) Bedside Creatinine 1.0 mg/dl (0.6-1.3) Bedside Glucose (other) 167 mg/dl (70-99) Bedside Ionized Calcium (Hannah) 1.02 mmol/l (1.12-1.32) Laboratory results reviewed by me Medications Administered Medications (Trade) Dose Ordered Sig/Amilcar Route Start Time Stop Time Status Last Admin Dose Admin Ceftriaxone Sodium (Rocephin Inj) 1 gm NOW STAT IV 06/10/16 22:09 06/10/16 22:11 DC 06/10/16 22:46 1 GM ECG Indication: SOB/dyspnea Rate (beats per minute): 78 Rhythm: normal sinus Findings: no acute ischemic change, other (LVH. Septal infarct.) ED Course 2201: The patient was evaluated in room B3B. A complete history and physical exam was performed. 2208: Ordered Rocephin Inj 1 gm IV. 2247: I spoke to Jaylin Meehan (Internal Medicine) about the patient's case and she will follow the patient for further evaluation. 2257: Reevaluated and updated the patient at this time. Medical Decision Triage Nursing notes reviewed. The patient's presentation and history were concerning for continued shortness of breath and another episode of vomiting. Etiologies such as pneumonia, COPD, reactive airway disease, CHF, cardiac ischemia, pulmonary embolism, pneumothorax, musculoskeletal, infections, gastrointestinal, as well as others were entertained. Prior records were reviewed. The patient had a pneumonia diagnosed earlier. He was advised to stay but declined. His INR was therapeutic. He was given a DuoNeb prior to arrival and was feeling a little bit better. His nausea had resolved. Chest x-ray was performed and revealed a persistent infiltrate in the left base. He was given a dose of IV Rocephin after blood cultures. The patient was hemodynamically stable. Given his worsening issues throughout the day and failure of treatment as an outpatient I discussed staying in the hospital. The patient and family were in agreement. I did consult with Dr. Lazar and the patient was evaluated for further management. His chemistry panel and CBC were unremarkable. ECG was nonischemic. Lactate was unremarkable. The chart was completed utilizing [employer] Speech voice recognition software. Grammatical errors, random word insertions, pronoun errors, and incomplete sentences are an occasional consequence of this system due to software limitations, ambient noise, and hardware issues. Any formal questions or concerns about the content, text, or information contained within the body of this dictation should be directly addressed to the physician for clarification. Consults Time Called: 2215 Consulting Physician: Jaylin Meehan (Internal Medicine) Returned Call: [phone] I spoke to Jaylin Meehan (Internal Medicine) about the patient's case and she will follow the patient for further evaluation. Impression Primary Impression: SOB (shortness of breath) Additional Impression: Pneumonia Scribe Attestation The scribe's documentation has been prepared under my direction and personally reviewed by me in its entirety. I confirm that the note above accurately reflects all work, treatment, procedures, and medical decision making performed by me. Departure Information Dispostion Being Evaluated By Hospitalist (Jaylin Meehan (Internal Medicine) ) Referrals Nikki Peters M.D. (PCP) Problem Qualifiers
--- NOTE | 2016-06-11 01:06 | History and Physical ---
History & Physical Date & Time of Service: Jun 11, 2016 at 01:05 Chief Complaint: SOB Primary Care Physician: Nikki Pteers M.D. History of Present Illness Source: family, hospital records, EMS The patient is an 86 year old who presents to the Emergency Room with complaints of persistent shortness of breath beginning one day prior to arrival. EMS notes the patient received one DuoNeb treatment on the way in, which has helped his breathing. pt was in the ED earlier yesterday morning ( 06/10/16 ) evaluated by Dr. Seo this morning for shortness of breath /Cough , nausea , vomiting Cxray shows possible pneumonia on the left side CT abdomen /pelvis done pt is on Coumadin for PE, INR was therapeutic no complain of chest pain or fever at that time. The patient was advised to be admitted but he refused at that time. . The patient was placed on oral Levaquin was discharged form ED Family states the patient experienced nausea and vomiting after leaving the hospital today, with worsening symptom of cough and SOB family convinced him to return to ED Past Medical/Surgical History Medical Problems: (1) AAA (abdominal aortic aneurysm) Permanent Comment: 5.1 cm s/p AAA repair 08/08/2011 Status: Resolved (2) Anxiety Status: Chronic (3) CAD (coronary artery disease) Permanent Comment: suspected, hx of abnormal stress, patient declined cardiac cath Status: Chronic (4) CKD (chronic kidney disease) stage 3, GFR 30-59 ml/min Status: Chronic (5) Diastolic CHF Permanent Comment: echo 03/2015 - EF 60-65%, grade II diastolic dysfunction Status: Chronic (6) Dyslipidemia Status: Chronic (7) HTN (hypertension) Status: Chronic (8) Hypothyroid Status: Chronic (9) Prostate cancer Status: Chronic Surgical Problems: (1) duodenal ulcer repair Status: Chronic (2) H/O prostatectomy Status: Chronic (3) H/O right inguinal hernia repair Status: Chronic (4) History of AAA (abdominal aortic aneurysm) repair Permanent Comment: 08/08/2011 Status: Resolved (5) History of appendectomy Status: Resolved (6) History of cataract surgery Status: Chronic (7) History of endarterectomy Permanent Comment: L endarterectomy 10/09/[address] Jacobs; carotid US 2014 shows 50-69% stenosis of RAFAT Status: Chronic Family History Hypertension Social History Smoking Status: Former Smoker Drug Use: none Marital Status: Housing status: lives with significant other Occupational Status: retired Immunizations History of Influenza Vaccine: Yes Influenza Vaccine Date: Nov 16, 2015 History of Tetanus Vaccine?: Yes Tetanus Immunization Date: Mar 03, 2005 History of Pneumococcal: Yes Pneumococcal Date: Aug 15, 2014 Allergies Coded Allergies: No Known Allergies (Unverified , 06/10/16) Home Medications Scheduled Cholecalciferol (Vitamin D3), 1 TAB PO DAILY Doxycycline Hyclate (Doxycycline Hyclate), 100 MG PO BID Furosemide (Lasix), 20 MG PO DAILY Latanoprost (Xalatan 0.005% Oph Irma), 1 DROPS OPL HS Levothyroxine Sodium (Synthroid), 75 MCG PO DAILY Melatonin (Melatonin Maximum Strengt), 1 TAB PO HS Oxybutynin Chloride Er (Ditropan Xl), 1 TAB PO DAILY Pantoprazole (Pantoprazole Sodium), 40 MG PO BID Prednisone Tab (Prednisone), 40 MG PO UD Sennosides-Docusate Sodium (Senexon-S), 1 TAB PO HS Sertraline (Zoloft), 50 MG PO DAILY Warfarin Sod (Jantoven), 3 MG PO 5XWK Warfarin Sod (Jantoven), 1.5 MG PO 2XWK Scheduled PRN Albuterol Hfa (Ventolin Hfa), 2 PUFFS PO Q4H PRN for Wheezing Nitroglycerin (Nitrostat), 0.4 MG UT UD PRN for Chest Pain Review of Systems Constitutional: + chills, + fatigue, + weakness Respiratory: + cough, + dyspnea at rest, + dyspnea on exertion, + shortness of breath, + sputum Cardiovascular: + chest pain Abdomen: + diarrhea, + nausea, + vomiting Musculoskeletal: + muscle pain Neurologic: + balance problems, + memory loss, + numbness/tingling, + vertigo, + weakness Psychiatric: + anxiety Endocrine: + fatigue Physical Exam Vital Signs Date Time Temp Pulse Resp B/P Pulse Ox O2 Delivery O2 Flow Rate FiO2 06/11/16 01:04 36.4 84 20 101/53 95 06/10/16 23:50 72 18 103/53 95 Nasal Cannula 2.0 06/10/16 22:23 66 06/10/16 22:20 94 Nasal Cannula 06/10/16 22:19 Nasal Cannula 2.0 06/10/16 22:03 36.4 83 22 150/70 91 Room Air 06/10/16 22:03 Room Air General Appearance: no apparent distress (elderly male , chrnically ill appearing ) Head: normocephalic, atraumatic Respiratory/Chest: + crackles, + rales Cardiovascular: + tachycardia Abdomen/GI: non tender, soft Extremities/Musculoskelatal: normal capillary refill, no pedal edema Neurologic/Psych: no motor/sensory deficits, alert, + pertinent finding ( baseline demetina ) Skin: normal color, warm/dry, no rash Diagnostics Laboratory Results Results Past 24 Hours Test 06/10/16 22:15 06/10/16 22:20 06/10/16 22:25 Range/Units White Blood Count 7.11 4.8-10.8 K/uL Red Blood Count 4.07 4.7-6.1 M/uL Hemoglobin 12.1 14.0-18.0 g/dL Hematocrit 36.0 42-52 % Mean Corpuscular Volume 88.5 80-100 fL Mean Corpuscular Hemoglobin 29.7 25-34 pg Mean Corpuscular Hemoglobin Concent 33.6 32-36 g/dl Platelet Count 128 130-400 K/uL Mean Platelet Volume 10.1 7.4-10.4 fL Neutrophils (%) (Auto) 85.1 % Lymphocytes (%) (Auto) 6.5 % Monocytes (%) (Auto) 8.2 % Eosinophils (%) (Auto) 0.0 % Basophils (%) (Auto) 0.1 % Neutrophils # (Auto) 6.05 1.4-6.5 K/uL Lymphocytes # (Auto) 0.46 1.2-3.4 K/uL Monocytes # (Auto) 0.58 0.11-0.59 K/uL Eosinophils # (Auto) 0.00 0-0.5 K/uL Basophils # (Auto) 0.01 0-0.2 K/uL RDW Standard Deviation 45.9 36.4-46.3 fL RDW Coefficient of Variation 14.1 11.5-14.5 % Immature Granulocyte % (Auto) 0.1 % Immature Granulocyte # (Auto) 0.01 0.00-0.02 K/uL Bedside Lactic Acid Venous 1.18 0.90-1.70 mmol/L Bedside Troponin I 0.040 0-0.045 ng/ml Bedside Hemoglobin 12.6 14.0-18.0 g/dl Bedside Hematocrit 37 42-52 % Bedside Sodium 131 135-144 mEq/L Bedside Potassium 3.9 3.3-5.0 mEq/L Bedside Chloride 95 101-112 mEq/L Bedside Total CO2 22 24-31 mEq/l Anion Gap 18.0 16-25 mmol/L Bedside Blood Urea Nitrogen 21 7-18 mg/dl Bedside Creatinine 1.0 0.6-1.3 mg/dl Bedside Glucose (other) 167 70-99 mg/dl Bedside Ionized Calcium (Hannah) 1.02 1.12-1.32 mmol/l Microbiology Results 06/10/16 Blood Culture, Received Pending 06/10/16 Blood Culture, Received Pending Diagnostic Radiology CHEST ONE VIEW PORTABLE CLINICAL HISTORY: EVALUATE RESPIRATORY DISTRESS. DYSPNEA dyspnea COMPARISON STUDY: 06/10/2016 10:52 AM FINDINGS: Chronic elevation right hemidiaphragm. Mild stable cardia megaly. Minimal parenchymal infiltrate left base unchanged. Minimal atelectasis right base. Pulmonary vascular congestion improved. IMPRESSION: Improved pulmonary vascular congestion. Unchanging parenchymal infiltrate left base. Impression Assessment and Plan SOB /POSSIBLE LEFT LOWER LOBE PNEUMONIA empiric abx with Levaquin ordered for blood culture repeat Cxray in AM monitor clinically HX OF RECENT PE : Dx with Pulmonary embolism during last admission on 03/2016 on chronic anticoagulation with Coumadin INR therapeutic RENAL CELL CA f/u as out patient CHRONIC DIASTOLIC CHF echo 03/2015 - EF 60-65%, grade II diastolic dysfunction no evidence of vol overload cont to monitor HYPOTHYROIDISM on levothyroxine DVT PROPHYLAXIS on Coumadin INR therapeutic CODE STATUS DNR /DNI DISPOSITION : PT/OT eval prior to discharge Family Physician follow up with Dr Saldaña Level of Care Telemetry Resuscitation Status FULL RESUSCITATION VTE Prophylaxis VTE Risk Assessment Done? Y/N: Yes Risk Level: Moderate Given or contraindicated: Warfarin (Coumadin) Note In my clinical judgment this beneficiary meets acute admission criteria, established by [facility], that includes being hospitalized through two midnights. Additional Copies To Nikki Peters M.D.
[2016-06-11] MEDS ORDERED: ALBUTEROL HFA 8 GM INHALER INH PRN ×2 (01:15)
[2016-06-11] MEDS ORDERED: NITROGLYCERIN 0.4 MG SL PER TAB CHARGE UT PRN (01:15)
[2016-06-11] MEDS ORDERED: CEFTRIAXONE SOD INJ 1 GM in DEXTROSE 5% ADD-VANTAGE 50ML 50 ML IV SCH ×2 (01:15→09:00)
[2016-06-11 01:21] LABS: INR 2.4 (0.9-1.1); PROTHROMBIN TIME (PATIENT) 26.2 SECONDS (9.0-12.0)
[2016-06-11 01:26] LABS: BUN/CREATININE RATIO 16.1 (10-20); CALCIUM 8.6 mg/dl (8.5-10.1); CREATININE 1.2 mg/dl (0.60-1.40); POTASSIUM 4.1 mmol/L (3.5-5.1)
[2016-06-11 01:29] LABS: ALB/GLOB RATIO 0.8 (0.9-2)
[2016-06-11] MEDS ORDERED: POLYETHYLENE (MIRALAX) 17 GM PACK PO PRN (01:30)
[2016-06-11] MEDS ORDERED: ONDANSETRON INJ 2 MG/ML 2 ML VIAL IV PRN (01:30)
[2016-06-11] MEDS ORDERED: ACETAMINOPHEN 325 MG TAB PO PRN (01:30)
[2016-06-11] MEDS ORDERED: MAGNESIUM HYDROXIDE SUSP 30 ML UDC PO PRN (01:30)
[2016-06-11] MEDS ORDERED: ALUMINUM/MAGNESIUM/SIMETH (MAALOX MAX) 30 ML UDC PO PRN (01:30)
[2016-06-11] MEDS ORDERED: NITROGLYCERIN 0.4 MG SL PER TAB CHARGE SL PRN (01:30)
[2016-06-11] MEDS ORDERED: SODIUM CHLORIDE 0.9% 1000ML 1,000 ML IV SCH ×2 (01:45→17:45)
[2016-06-11] MEDS: ALBUT/IPRATROP 3MG/0.5MG NEB 3 ML VIAL INH SCH ×5 (01:55→20:11)
[2016-06-11] MEDS: AZITHROMYCIN 250 MG TAB PO SCH ×2 (03:34→09:41)
[2016-06-11] MEDS: LEVOTHYROXINE 75 MCG TAB PO SCH (06:18)
[2016-06-11 07:24] LABS: HEMATOCRIT 32.5 % (42-52); MEAN CELL VOLUME 87.1 fL (80-100); MEAN CORPUSCULAR HEMOGLOBIN 29.2 pg (25-34); MEAN CORPUSCULAR HGB CONC 33.5 g/dl (32-36); MEAN PLATELET VOLUME 9.9 fL (7.4-10.4); PLATELET COUNT 107 K/uL (130-400); RED BLOOD COUNT 3.73 M/uL (4.7-6.1); WHITE BLOOD COUNT 3.93 K/uL (4.8-10.8)
[2016-06-11 07:31] LABS: INR 2.6 (0.9-1.1); PROTHROMBIN TIME (PATIENT) 28.4 SECONDS (9.0-12.0)
[2016-06-11 07:45] LABS: BUN/CREATININE RATIO 17.5 (10-20); CALCIUM 8.5 mg/dl (8.5-10.1); CREATININE 1.2 mg/dl (0.60-1.40); POTASSIUM 3.7 mmol/L (3.5-5.1)
--- NOTE | 2016-06-11 07:52 | DIAGNOSTIC IMAGING REPORT ---
CHEST ONE VIEW PORTABLE CLINICAL HISTORY: Pneumonia. COMPARISON STUDY: Chest radiograph June 10, 2016. FINDINGS: Lung volumes are diminished. Elevation of the right hemidiaphragm is unchanged. Lower lung opacities and interstitial thickening remain unchanged. Moderate cardiomegaly is unchanged. There is no evidence of pulmonary edema. IMPRESSION: 1. No change in bibasilar opacities which favor atelectasis. 2. Stable cardiomegaly without evidence of pulmonary edema. No change in appearance of the chest. Electronically signed by: Heath Mendez M.D. 06/11/2016 7:50 AM Dictated Date/Time: 06/11/2016 7:48 AM
[2016-06-11] MEDS ORDERED: FUROSEMIDE 20 MG TAB PO SCH (09:00)
[2016-06-11] MEDS: SERTRALINE HCL 50 MG TAB PO SCH (09:40)
[2016-06-11] MEDS: OXYBUTYNIN CHLORIDE 5 MG TABCR PO SCH (09:40)
[2016-06-11] MEDS: ASPIRIN 81 MG ECTAB PO SCH (09:40)
[2016-06-11] MEDS: CHOLECALCIFEROL 1000 INTER.UNIT TAB PO SCH (09:41)
[2016-06-11] MEDS: PANTOprazole SOD 40 MG TAB PO SCH ×2 (09:42→20:38)
[2016-06-11] MEDS ORDERED: OPTIRAY 320 IV PRN (11:30)
[2016-06-11] MEDS ORDERED: LEVOFLOXACIN / D5W 750 MG in PREMIXED IN D5W 150 ML IV SCH (11:30)
[2016-06-11 12:12] LABS: ARTERIAL BLD GAS O2 SATURATION 97.5 % (90-95); ARTERIAL BLOOD GAS BASE EXCESS 1.4 mEq/L (-9-1.8); ARTERIAL BLOOD GAS HCO3 24 mmol/L (19-24); ARTERIAL BLOOD GAS PO2 95 mm/Hg (80-95)
[2016-06-11] MEDS ORDERED: LORAZEPAM IV ONE (12:15)
[2016-06-11 12:19] LABS: ALLEN TEST POS (POS); ARTERIAL BLOOD GAS pH 7.52 (7.35-7.45); O2 ADMINISTRATION 2L
[2016-06-11] MEDS ORDERED: DOXYCYCLINE IV 100 MG in DEXTROSE 5% 100ML 100 ML IV SCH (12:30)
[2016-06-11] MEDS ORDERED: ALBUT/IPRATROP 3MG/0.5MG NEB 3 ML VIAL INH ONE (12:45)
[2016-06-11] MEDS ORDERED: PIPERACILL/TAZOBAC CONSULT ACTIVE PRN (12:45)
[2016-06-11] MEDS ORDERED: PIPERACILL/TAZOBAC IV 3.375 GM in DEXTROSE 5% 100ML 100 ML IV ONE (13:00)
--- NOTE | 2016-06-11 13:52 | DIAGNOSTIC IMAGING REPORT ---
CT ANGIOGRAPHY OF THE CHEST, PULMONARY EMBOLUS PROTOCOL CLINICAL HISTORY: Pneumonia. COMPARISON STUDY: Chest CT March 27, 2016 and chest radiograph June 11, 2016. TECHNIQUE: Following IV administration of 93 mL of [id number]-320, helical axial images of the chest were obtained utilizing the pulmonary embolus protocol. Maximal intensity projections and sagittal and coronal reformats were viewed on an independent 3D workstation. IV contrast was administered without complication. CT DOSE: 335.45 mGy.cm FINDINGS: No central or lobar pulmonary emboli are identified. The lower lobe pulmonary arteries are suboptimally assessed due to respiratory motion. The heart is moderately enlarged. There is no pericardial effusion. There is extensive atherosclerotic plaque of the thoracic aorta and coronary arteries. There is no evidence for thoracic aortic dissection. Central airways are patent. Lungs are suboptimally assessed due to respiratory motion. Linear opacities represent atelectasis. Subpleural groundglass opacity with reticulation may reflect interstitial lung disease. No honeycombing is present. There is no pneumothorax or pleural effusion. Visualized portions of the upper abdomen are unremarkable. Mild elevation of the right hemidiaphragm is unchanged. IMPRESSION: 1. No central or lobar pulmonary emboli. Segmental and subsegmental pulmonary arteries suboptimally assessed due to respiratory motion, particularly within the lower lobes. 2. No lobar consolidation. Lung suboptimally assessed due to respiratory motion. Subpleural reticulation and ground glass opacities is unchanged and favors interstitial lung disease. No honeycombing. Electronically signed by: Heath Mendez M.D. 06/11/2016 1:50 PM Dictated Date/Time: 06/11/2016 1:42 PM
[2016-06-11] MEDS ORDERED: LORAZEPAM 0.5 MG TAB PO PRN (15:00)
[2016-06-11 15:41] LABS: INFLUENZA A PCR Neg for Influ A (NEG); INFLUENZA B PCR Neg for Influ B (NEG)
[2016-06-11] MEDS: WARFARIN SOD 3 MG TAB PO SCH (17:42)
[2016-06-11] MEDS ORDERED: PIPERACILL/TAZOBAC IV 3.375 GM in DEXTROSE 5% 100ML 100 ML IV SCH (18:00)
--- NOTE | 2016-06-11 18:14 | Progress Note ---
Internal Med Progress Note Date of Service: Jun 11, 2016. Provider Documentation: SUBJECTIVE: complains of sob has chronic cough with sputum afebrile no chest pain no nausea or abdominal pain OBJECTIVE: Vital Signs-as noted below Exam: General-alert and awake and oriented ENT-normal hearing Neck-no neck masses Lungs-cta b/l mild diminished breath sounds no wheezing or crackles Heart-s1 and s2 heard regular rate and rhythm no murmurs Abdomen-soft bowel sounds present non tender no distension Extremities- no erythema Neuro-alert and awake moves extremities Lab data as noted below. ASSESSMENT & PLAN: SOB LEFT LOWER LOBE PNEUMONIA Questionable No consolidation or PE on Ct scan Elevated PH on abg-mostly hyperventilation MRSA swab positive elvated lactic acid mostly from incresed breathing empirically started on iv Zosyn, vanco and po doxycycline and fluids will f/u cx monitor vitals f/u serial lactic acid. RENAL CELL CA f/u as out patient CHRONIC DIASTOLIC CHF euvolemic holding diuretics for hyponatremia , dehydration on fluids will monitor for volume overload HYPOTHYROIDISM on levothyroxine DVT PROPHYLAXIS on Coumadin INR therapeutic CODE STATUS DNR /DNI DISPOSITION : To be determined Vital Signs: Date Time Temp Pulse Resp B/P Pulse Ox O2 Delivery O2 Flow Rate FiO2 06/11/16 16:00 Nasal Cannula 4.0 06/11/16 15:17 36.5 77 22 102/58 95 Nasal Cannula 2.0 06/11/16 15:13 78 20 96 Room Air 06/11/16 12:04 78 20 91 Nasal Cannula 2.0 06/11/16 12:00 96 Nasal Cannula 4.0 06/11/16 11:18 78 20 97 Nasal Cannula 4.0 06/11/16 11:05 36.5 63 22 98/51 97 Nasal Cannula 4.0 06/11/16 08:00 94 Nasal Cannula 4.0 06/11/16 07:49 36.5 59 18 112/65 96 Nasal Cannula 2.0 06/11/16 07:29 58 20 97 Nasal Cannula 2.0 06/11/16 04:13 36.6 58 18 93/52 93 06/11/16 04:00 Nasal Cannula 2.0 06/11/16 01:55 64 22 97 Nasal Cannula 2.0 06/11/16 01:30 36.7 68 20 105/50 93 Nasal Cannula 2.0 06/11/16 01:04 36.4 84 20 101/53 95 06/10/16 23:50 72 18 103/53 95 Nasal Cannula 2.0 06/10/16 22:23 66 06/10/16 22:20 94 Nasal Cannula 06/10/16 22:19 Nasal Cannula 2.0 06/10/16 22:03 36.4 83 22 150/70 91 Room Air 06/10/16 22:03 Room Air Lab Results: Results Past 24 Hours Test 06/10/16 22:15 06/10/16 22:20 06/10/16 22:25 06/11/16 06:49 Range/Units White Blood Count 7.11 3.93 4.8-10.8 K/uL Red Blood Count 4.07 3.73 4.7-6.1 M/uL Hemoglobin 12.1 10.9 14.0-18.0 g/dL Hematocrit 36.0 32.5 42-52 % Mean Corpuscular Volume 88.5 87.1 80-100 fL Mean Corpuscular Hemoglobin 29.7 29.2 25-34 pg Mean Corpuscular Hemoglobin Concent 33.6 33.5 32-36 g/dl Platelet Count 128 107 130-400 K/uL Mean Platelet Volume 10.1 9.9 7.4-10.4 fL Neutrophils (%) (Auto) 85.1 % Lymphocytes (%) (Auto) 6.5 % Monocytes (%) (Auto) 8.2 % Eosinophils (%) (Auto) 0.0 % Basophils (%) (Auto) 0.1 % Neutrophils # (Auto) 6.05 1.4-6.5 K/uL Lymphocytes # (Auto) 0.46 1.2-3.4 K/uL Monocytes # (Auto) 0.58 0.11-0.59 K/uL Eosinophils # (Auto) 0.00 0-0.5 K/uL Basophils # (Auto) 0.01 0-0.2 K/uL RDW Standard Deviation 45.9 45.1 36.4-46.3 fL RDW Coefficient of Variation 14.1 14.1 11.5-14.5 % Immature Granulocyte % (Auto) 0.1 % Immature Granulocyte # (Auto) 0.01 0.00-0.02 K/uL Prothrombin Time 26.2 28.4 9.0-12.0 SECONDS Prothromb Time International Ratio 2.4 2.6 0.9-1.1 Sodium Level 133 136 136-145 mmol/L Potassium Level 4.1 3.7 3.5-5.1 mmol/L Chloride Level 96 99 98-107 mmol/L Carbon Dioxide Level 27 30 21-32 mmol/L Anion Gap 10.0 18.0 7.0 3-11 mmol/L Blood Urea Nitrogen 19 21 7-18 mg/dl Creatinine 1.20 1.20 0.60-1.40 mg/dl Est Creatinine Clear Calc Drug Dose 52.2 52.0 ml/min Estimated GFR () 62.2 62.2 Estimated GFR (Non- 53.7 53.7 BUN/Creatinine Ratio 16.1 17.5 10-20 Random Glucose 159 120 70-99 mg/dl Calcium Level 8.6 8.5 8.5-10.1 mg/dl Total Bilirubin 0.4 0.2-1 mg/dl Aspartate Amino Transf (AST/SGOT) 22 15-37 U/L Alanine Aminotransferase (ALT/SGPT) 19 12-78 U/L Alkaline Phosphatase 72 45-117 U/L Total Protein 7.3 6.4-8.2 gm/dl Albumin 3.2 3.4-5.0 gm/dl Globulin 4.1 2.5-4.0 gm/dl Albumin/Globulin Ratio 0.8 0.9-2 Bedside Troponin I 0.040 0-0.045 ng/ml Bedside Hemoglobin 12.6 14.0-18.0 g/dl Bedside Hematocrit 37 42-52 % Bedside Sodium 131 135-144 mEq/L Bedside Potassium 3.9 3.3-5.0 mEq/L Bedside Chloride 95 101-112 mEq/L Bedside Total CO2 22 24-31 mEq/l Bedside Blood Urea Nitrogen 21 7-18 mg/dl Bedside Creatinine 1.0 0.6-1.3 mg/dl Bedside Glucose (other) 167 70-99 mg/dl Bedside Ionized Calcium (Hannah) 1.02 1.12-1.32 mmol/l Test 06/11/16 11:44 06/11/16 11:50 06/11/16 13:00 06/11/16 16:17 Range/Units Arterial Blood pH 7.52 7.35-7.45 Arterial Blood Partial Pressure CO2 30 35-46 mmHg Arterial Blood Partial Pressure O2 95 80-95 mm/Hg Arterial Blood HCO3 24 19-24 mmol/L Arterial Blood Oxygen Saturation 97.5 90-95 % Arterial Blood Base Excess 1.4 -9-1.8 mEq/L Arterial Blood Gas Delivery 2L Song Test POS POS Lactic Acid Level 2.1 0.4-2.0 mmol/L Troponin I 0.022 0-0.045 ng/ml Influenza Type A (RT-PCR) Neg for Influ A NEG Influenza Type B (RT-PCR) Neg for Influ B NEG Bedside Glucose 145 70-99 mg/dl Test 06/11/16 16:57 Range/Units Lactic Acid Level 4.5 0.4-2.0 mmol/L Microbiology Results 06/10/16 Blood Culture, Received Pending 06/10/16 Blood Culture, Received Pending 06/11/16 MRSA DNA Surveillance Screen - Final, Complete Specimen Positive for MRSA by DNA Probe 06/11/16 Gram Stain - Final, Complete 06/11/16 Sputum Culture - Final, Complete 06/11/16 Gram Stain - Final, Complete 06/11/16 Sputum Culture - Final, Complete
[2016-06-11] MEDS ORDERED: VANCOMYCIN CONSULT ACTIVE PRN (19:00)
[2016-06-11] MEDS ORDERED: VANCOMYCIN INJ 2,400 MG in SODIUM CHLORIDE 0.9% 500ML 500 ML IV ONE (19:15)
[2016-06-11] MEDS: DOCUSATE SODIUM/SENNA 50/8.6MG TAB PO SCH (20:38)
[2016-06-11] MEDS: LATANOPROST 0.005% OP SOLN 2.5 ML BTL OPL SCH (20:39)
[2016-06-11] MEDS: DOXYCYCLINE HYCLATE 100 MG CAP PO SCH (20:45)
[2016-06-11] MEDS ORDERED: NON-FORMULARY MEDICATION (Melatonin (Melatonin Maximum Strengt) 1 TAB) PO SCH (21:00)
--- NOTE | 2016-06-11 22:40 | Pharmacy Progress Note ---
Pharmacy Antibiotic Consult Date of Service: Jun 11, 2016. Pharmacy Dosing Scope Pharmacy is consulted to initiate vancomycin and zosyn IV dosing therapy, order appropriate labs and adjust drug dose/frequency. Subjective The patient is a 86 year old male admitted on Jun 10, 2016 at 23:04. Objective Height (Feet): 6 Height (Inches): 1.00 Weight (Kilograms): 96.000 Lab Results (24hrs): Laboratory Tests Test 06/11/16 06:49 BUN/Creatinine Ratio 17.5 Blood Urea Nitrogen 21 mg/dl Creatinine 1.20 mg/dl White Blood Count 3.93 K/uL Micro Results: Item Value Date Time MRSA DNA Surveillance Screen - Final Complete 06/11/16 1300 Nasal Specimen Positive for MRSA by DNA Probe Gram Stain - Final Complete 06/11/16 0615 Sputum Expectorated Sputum Gram Stain - Final Complete 06/11/16 0450 Sputum Expectorated Sputum Gram Stain - Final Resulted 06/11/16 0000 Sputum Expectorated Sputum Blood Culture Received 06/10/16 2220 Blood Pending Blood Culture Received 06/10/16 2215 Blood Pending Assessment & Plan Patient started on vancomycin, zosyn, and doxycycline (not consult) for possible pneumonia. MRSA swab is positive, BC x 2 are pending, sputum is pending. Vancomycin: * Vancomycin 2400 mg (25 mg/kg) iv x 1 * Will order MD of vancomycin 1250 mg (~13mg/kg) iv q 18 hrs to achieve an estimated trough ~16 mcg/ml (goal 15-20 mcg/ml for PNA) * Estimated kinetics: t1/2~15 hrs, ke~0.043 hrs, CrCl ~52 ml/min * Vancomycin only ordered x 48 hrs empirically ; if duration extended will consider obtaining trough level Zosyn: * 3.375 gm iv x 1 given; will start 3.375 gm iv q 8 hrs which is appropriate for CrCl >20 ml/min (actual CrCl ~52 ml/min) Pharmacy will continue to follow and will adjust dose/frequency as necessary. Thank you
[2016-06-12] VITALS (9 sets, daily range): BP systolic 114–149; BP diastolic 58–85; PULSE 59–82; TEMP 36.6–37.3; O2SAT 90–96
[2016-06-12] MEDS: ZOLPIDEM TARTRATE 5 MG TAB PO PRN ×2 (00:45→21:15)
[2016-06-12] MEDS: LEVOTHYROXINE 75 MCG TAB PO SCH (05:37)
[2016-06-12 05:54] LABS: HEMATOCRIT 32.9 % (42-52); MEAN CELL VOLUME 88.7 fL (80-100); MEAN CORPUSCULAR HEMOGLOBIN 29.4 pg (25-34); MEAN CORPUSCULAR HGB CONC 33.1 g/dl (32-36); MEAN PLATELET VOLUME 10.6 fL (7.4-10.4); PLATELET COUNT 100 K/uL (130-400); RED BLOOD COUNT 3.71 M/uL (4.7-6.1); WHITE BLOOD COUNT 4.94 K/uL (4.8-10.8)
[2016-06-12 06:02] LABS: INR 2.7 (0.9-1.1); PROTHROMBIN TIME (PATIENT) 30.3 SECONDS (9.0-12.0)
[2016-06-12 06:11] LABS: BUN/CREATININE RATIO 16.3 (10-20); CALCIUM 8.1 mg/dl (8.5-10.1); CREATININE 1.2 mg/dl (0.60-1.40); POTASSIUM 3.5 mmol/L (3.5-5.1)
[2016-06-12] MEDS: ALBUT/IPRATROP 3MG/0.5MG NEB 3 ML VIAL INH SCH ×4 (07:15→19:44)
--- NOTE | 2016-06-12 07:56 | DIAGNOSTIC IMAGING REPORT ---
CHEST ONE VIEW PORTABLE HISTORY: Short of breath. COMPARISON: Chest 06/11/2016. FINDINGS: There are low lung volumes. Stable blunting of the left costophrenic sulcus and left basilar linear densities. No evidence for pulmonary edema. Elevation the right hemidiaphragm, unchanged. The heart remains mildly enlarged. No pleural effusions. No pneumothorax. IMPRESSION: No change from the prior study. Cardiomegaly and left basilar densities persist. Electronically signed by: Arden Calle M.D. 06/12/2016 7:54 AM Dictated Date/Time: 06/12/2016 7:52 AM
[2016-06-12] MEDS: ASPIRIN 81 MG ECTAB PO SCH (08:50)
[2016-06-12] MEDS: DOXYCYCLINE HYCLATE 100 MG CAP PO SCH ×2 (08:50→20:30)
[2016-06-12] MEDS: PANTOprazole SOD 40 MG TAB PO SCH ×2 (08:51→20:31)
[2016-06-12] MEDS: SERTRALINE HCL 50 MG TAB PO SCH (08:51)
[2016-06-12] MEDS: OXYBUTYNIN CHLORIDE 5 MG TABCR PO SCH (08:51)
[2016-06-12] MEDS: CHOLECALCIFEROL 1000 INTER.UNIT TAB PO SCH (08:52)
[2016-06-12] MEDS: FUROSEMIDE 20 MG TAB PO SCH (09:01)
[2016-06-12] MEDS ORDERED: VANCOMYCIN INJ 1,250 MG in SODIUM CHLORIDE 0.9% 250ML 250 ML IV SCH (14:00)
[2016-06-12] MEDS ORDERED: WARFARIN SOD 0.5 MG TAB PO SCH (16:00)
--- NOTE | 2016-06-12 16:13 | Progress Note ---
Internal Med Progress Note Date of Service: Jun 12, 2016. Provider Documentation: SUBJECTIVE: denies sob today ambulated ok has cough afebrile wants to be discharged OBJECTIVE: Vital Signs-as noted below Exam: General-alert and awake and oriented ENT-normal hearing Neck-no neck masses Lungs-cta b/l mild diminished breath sounds no wheezing or crackles Heart-s1 and s2 heard regular rate and rhythm no murmurs Abdomen-soft bowel sounds present non tender no distension Extremities- no erythema Neuro-alert and awake moves extremities Lab data as noted below. ASSESSMENT & PLAN: SOB LEFT LOWER LOBE PNEUMONIA Questionable Has chronic cough with sputum No consolidation or PE on Ct scan Elevated PH on abg-mostly hyperventilation MRSA swab positive elevated lactic acid mostly from increased breathing which normalized now was empirically started on iv Zosyn, vanco and po doxycycline and fluids will f/u cx monitor vitals currently only on doxycycline Son request pulmonary consult. RENAL CELL CA f/u as out patient CHRONIC DIASTOLIC CHF euvolemic holding diuretics for hyponatremia , dehydration on fluids will restart diuretics in am HYPOTHYROIDISM on levothyroxine DVT PROPHYLAXIS on Coumadin INR therapeutic CODE STATUS DNR /DNI DISPOSITION : pt/ot To be determined Vital Signs: Date Time Temp Pulse Resp B/P Pulse Ox O2 Delivery O2 Flow Rate FiO2 06/12/16 16:00 66 20 96 Nasal Cannula 2.0 06/12/16 15:11 36.8 59 16 114/63 90 Nasal Cannula 2.0 06/12/16 12:00 Room Air 06/12/16 11:39 36.6 74 20 149/85 91 Room Air 06/12/16 08:00 Room Air 06/12/16 07:48 37.3 75 18 123/77 92 Room Air 06/12/16 07:26 73 20 96 Nasal Cannula 2.0 06/12/16 05:11 36.9 70 18 117/58 94 Nasal Cannula 2.0 06/12/16 04:00 Room Air 06/12/16 00:00 Room Air 06/11/16 23:41 36.7 61 16 117/57 94 Nasal Cannula 2.0 06/11/16 20:12 75 20 92 Room Air 06/11/16 20:00 Room Air 06/11/16 19:53 36.5 70 20 99/65 93 Room Air Lab Results: Results Past 24 Hours Test 06/11/16 16:17 06/11/16 16:57 06/11/16 20:17 06/11/16 22:45 Range/Units Bedside Glucose 145 120 70-99 mg/dl Lactic Acid Level 4.5 0.9 0.4-2.0 mmol/L Test 06/12/16 05:10 06/12/16 14:40 Range/Units White Blood Count 4.94 4.8-10.8 K/uL Red Blood Count 3.71 4.7-6.1 M/uL Hemoglobin 10.9 14.0-18.0 g/dL Hematocrit 32.9 42-52 % Mean Corpuscular Volume 88.7 80-100 fL Mean Corpuscular Hemoglobin 29.4 25-34 pg Mean Corpuscular Hemoglobin Concent 33.1 32-36 g/dl RDW Standard Deviation 46.9 36.4-46.3 fL RDW Coefficient of Variation 14.4 11.5-14.5 % Platelet Count 100 130-400 K/uL Mean Platelet Volume 10.6 7.4-10.4 fL Prothrombin Time 30.3 9.0-12.0 SECONDS Prothromb Time International Ratio 2.7 0.9-1.1 Sodium Level 137 136-145 mmol/L Potassium Level 3.5 3.5-5.1 mmol/L Chloride Level 102 98-107 mmol/L Carbon Dioxide Level 29 21-32 mmol/L Anion Gap 6.0 3-11 mmol/L Blood Urea Nitrogen 20 7-18 mg/dl Creatinine 1.20 0.60-1.40 mg/dl Est Creatinine Clear Calc Drug Dose 52.0 ml/min Estimated GFR () 62.2 Estimated GFR (Non- 53.7 BUN/Creatinine Ratio 16.3 10-20 Random Glucose 95 70-99 mg/dl Calcium Level 8.1 8.5-10.1 mg/dl Procalcitonin 0.92 0-0.5 ng/mL
[2016-06-12] MEDS: LATANOPROST 0.005% OP SOLN 2.5 ML BTL OPL SCH (20:30)
[2016-06-12] MEDS: DOCUSATE SODIUM/SENNA 50/8.6MG TAB PO SCH (20:31)
[2016-06-13] VITALS (12 sets, daily range): BP systolic 107–145; BP diastolic 66–76; PULSE 54–83; TEMP 36.2–36.7; O2SAT 90–96
[2016-06-13] MEDS: LEVOTHYROXINE 75 MCG TAB PO SCH (04:13)
[2016-06-13 06:09] LABS: HEMATOCRIT 35.8 % (42-52); MEAN CELL VOLUME 88.6 fL (80-100); MEAN CORPUSCULAR HEMOGLOBIN 30.4 pg (25-34); MEAN CORPUSCULAR HGB CONC 34.4 g/dl (32-36); MEAN PLATELET VOLUME 10.4 fL (7.4-10.4); PLATELET COUNT 114 K/uL (130-400); RED BLOOD COUNT 4.04 M/uL (4.7-6.1); WHITE BLOOD COUNT 4.88 K/uL (4.8-10.8)
[2016-06-13 06:18] LABS: INR 2.9 (0.9-1.1); PROTHROMBIN TIME (PATIENT) 32.7 SECONDS (9.0-12.0)
[2016-06-13 06:41] LABS: BUN/CREATININE RATIO 16.2 (10-20); CALCIUM 8.7 mg/dl (8.5-10.1); POTASSIUM 3.7 mmol/L (3.5-5.1)
[2016-06-13] MEDS: ALBUT/IPRATROP 3MG/0.5MG NEB 3 ML VIAL INH SCH (07:29)
--- NOTE | 2016-06-13 08:15 | PULMONARY CONSULTATION ---
DATE OF CONSULTATION: 06/13/2016 HISTORY OF PRESENT ILLNESS: The patient is a very pleasant 86-year-old male who was admitted to the hospital on 06/10/2016 with possible left lower lobe pneumonia and Dr. Arana has asked me to evaluate the patient from a pulmonary standpoint. He has had a chronic cough for about a year and a half. It is nonproductive. It is associated with mild shortness of breath with exertion, though he has not been very active due to his age. Apparently, he was seen in the Emergency Room on 06/10/2016 in the morning with some shortness of breath, cough, nausea and vomiting, treated with Levaquin, sent some and returned to the Emergency Room with some nausea and vomiting, worsening shortness of breath. He was placed in the hospital on 06/10/2016, given just doxycycline, was treated with vancomycin one dose yesterday. He states he feels improved but his cough persists. It is not productive. It is not associated with any environmental abnormalities, nothing in the environment such as cold air, cigarette smoke, hair sprays or fumes precipitates his coughing. He denies any aspiration of any foreign bodies. Interestingly, a chest x-ray suggested left lower lobe infiltrative process. CT scan of the chest on 11/12/2015 was done with IV contrast, shows no pulmonary emboli with marked amount of atherosclerotic plaque in the thoracic aorta and coronary arteries with some subpleural reticulation and subpleural ground-glass opacities consistent with interstitial lung disease. Some of these are central and some are in the periphery. They do seem to have a basilar predominance. When I reviewed his chest x-rays, they showed some interstitial thickening as far back as 2014. He had a CAT scan, angiogram of the neck in 2014 that revealed some subpleural reticulation, some thickening of the interstitium of the lung and the apices at that time. He has not had any industrial exposures. 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 He has never been exposed to asbestos or fumes, never worked around metals, has not been a bird fancier or eli. Really has never had any problems with his lungs until about a year ago when he developed an unrelenting cough. 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 No one in his family has had any lung problems. He has not been on nitrofurantoin that he can remember in the past. PAST MEDICAL AND SURGICAL HISTORY: Significant for abdominal aortic aneurysm with repair in 08/2011, coronary artery disease, chronic kidney disease stage III, diastolic heart failure, hyperlipidemia, hypothyroidism, carcinoma of the prostate, GI bleed with duodenal ulcer repair. He has had right inguinal herniorrhaphy, prostatectomy, abdominal aortic aneurysm repair, appendectomy, cataract surgery, endarterectomy by Dr. Jacobs in 10/2011. SOCIAL HISTORY: He has about a [id number] history of cigarette smoking, quit many years ago. He is not an alcohol user. He is . Has not had any industrial exposure. He seems to be up to date with immunizations. MEDICATIONS: Noted. When I reviewed the records, he was here with sepsis in 03/2015. At that time, had an oximetry report that showed very minimal oxygen desaturation at night, not requiring supplemental oxygen. PHYSICAL EXAMINATION: GENERAL: Reveals the patient to be quite pleasant and cooperative. VITAL SIGNS: Blood pressure 120/70, oxygen saturation 94% on room air, and he is afebrile. His weight is 96 kilograms. When he was here in 10/2015, his weight was 100 kilograms, so he has had about a 4-kilogram loss over the last year or so. I\T\Os, 995 in, 628 out. HEENT: Unremarkable. No telangiectasia is noted. Posterior pharynx is unremarkable. No adenopathy is noted. Expansion of the thorax is good with deep inspiration. NECK: Carotid upstroke is decreased. Thyroid nonpalpable. HEART: Regular rate and rhythm. Heart sounds are very distant. LUNGS: Reveal some Velcro type crackles at the left base in the left mid lung field. A few crackles are noted at the right base as well. The lungs reveal no wheezing. There is no fremitus or dullness to percussion. ABDOMEN: Soft. Liver and spleen are normal. EXTREMITIES: He has no cyanosis, clubbing or edema. EKG revealed normal sinus rhythm with left ventricular hypertrophy with widening of the QRS complex, but no acute changes were noted. LABORATORY WORK: Reveals a normal white count at 4.8, hemoglobin 12.3, hematocrit 35.8%, platelet count slightly reduced at 114,000. Blood gas revealed pH 7.52, pCO2 of 30, pO2 of 95. PRP was unremarkable. I did order procalcitonin level yesterday, it was 0.92, suggesting of an infection. Lactate level was 4.5 on 06/11/2016. Troponin was unremarkable. Liver function studies are normal. INR is 2.9. Influenza A and B PCR negative. I reviewed the biopsy of his stomach during an episode of bleeding, he had acute active gastritis with no dysplasia or carcinoma noted at that time. So far, MRSA DNA surveillance screen is positive by DNA probe. Sputum Gram stain on 06/11/2016 revealed some squamous cells, it was a contaminated specimen. It revealed light agusto as well. Blood cultures were unremarkable. IMPRESSION: Interstitial lung disease. The CT scan reveals some ground-glass opacities bilaterally with some subpleural reticulation. These appear to have more of a central distribution with a bit of a basilar predominance. I do not see any honeycombing at all. 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 Desquamative interstitial pneumonitis is a possibility as well but almost always is seen in smokers that are actively smoking, he has not smoked for a number of years. That certainly is a possibility as well since this seems to have come on over the last 2 years. At this point, I would continue with the patient's present medications and have a followup with Dr. Ward or Dr. Gage as an outpatient for workup for interstitial lung disease. Apparently, the patient is going to be discharged today or at least wants to go home, I think that would be reasonable. I really do not see any evidence of pneumonia on the CT scan; however, the procalcitonin is slightly elevated, suggesting of an infection. I would recommend checking a urinalysis prior to discharge. He may respond better to quinolone if he has a uti. and he will have to have his INR followed carefully if he is placed on that medication. Workup would include checking an ANCA, sed rate, C-reactive protein, TYLER, rheumatoid factor, Lyme titer as an outpatient and perhaps consider a treatment for nonspecific interstitial pneumonitis if this would continue to evolve and his cough would persist. RAISSA
[2016-06-13] MEDS: DOXYCYCLINE HYCLATE 100 MG CAP PO SCH ×2 (09:00→20:24)
[2016-06-13] MEDS: PANTOprazole SOD 40 MG TAB PO SCH ×2 (09:00→20:24)
[2016-06-13] MEDS: CHOLECALCIFEROL 1000 INTER.UNIT TAB PO SCH (09:00)
[2016-06-13] MEDS: OXYBUTYNIN CHLORIDE 5 MG TABCR PO SCH (09:01)
[2016-06-13] MEDS: FUROSEMIDE 20 MG TAB PO SCH (09:01)
[2016-06-13] MEDS: SERTRALINE HCL 50 MG TAB PO SCH (09:01)
[2016-06-13] MEDS: ASPIRIN 81 MG ECTAB PO SCH (09:01)
[2016-06-13] MEDS ORDERED: METHYLPREDNISOLONE IV 40 MG in SYRINGE 0 ML IV ONE (12:30)
[2016-06-13] MEDS: IPRATROPIUM BROMIDE/ALBUTEROL respimat INH INH SCH ×3 (13:00→20:23)
[2016-06-13] MEDS: WARFARIN SOD 3 MG TAB PO SCH (16:02)
--- NOTE | 2016-06-13 17:07 | Progress Note ---
Internal Med Progress Note Date of Service: Jun 13, 2016. Provider Documentation: SUBJECTIVE: Son is here to take patient home but patient complains again of sob afebrile has chronic cough no chest pain OBJECTIVE: Vital Signs-as noted below Exam: General-alert and awake and oriented ENT-normal hearing Neck-no neck masses Lungs-cta b/l mild diminished breath sounds no wheezing or crackles Heart-s1 and s2 heard regular rate and rhythm no murmurs Abdomen-soft bowel sounds present non tender no distension Extremities- no erythema Neuro-alert and awake moves extremities Lab data as noted below. ASSESSMENT & PLAN: SOB Mild Interstitial lung disease flare? Has chronic cough with sputum No consolidation or PE on Ct scan Elevated PH on abg-mostly hyperventilation MRSA swab positive elevated lactic acid mostly from increased breathing which normalized now was empirically started on iv Zosyn, vanco and po doxycycline and fluids will f/u cx monitor vitals currently only on doxycycline Son request pulmonary consult. sen by pulmonary and appreciate inputs added steroids two step prior to d/c possible d/c in am RENAL CELL CA f/u as out patient CHRONIC DIASTOLIC CHF euvolemic holding diuretics for hyponatremia , dehydration on fluids will restart diuretics in am HYPOTHYROIDISM on levothyroxine DVT PROPHYLAXIS on Coumadin INR therapeutic CODE STATUS DNR /DNI DISPOSITION : pt/ot possible d/c in am Vital Signs: Date Time Temp Pulse Resp B/P Pulse Ox O2 Delivery O2 Flow Rate FiO2 06/13/16 16:04 36.2 61 20 121/76 96 Nasal Cannula 2.0 06/13/16 12:00 93 Nasal Cannula 2.0 06/13/16 11:23 36.3 83 18 129/73 93 Nasal Cannula 2.0 06/13/16 08:00 93 Nasal Cannula 2.0 06/13/16 07:43 36.7 68 18 145/72 92 Nasal Cannula 2.0 06/13/16 04:39 36.4 65 18 120/70 90 Nasal Cannula 2.0 06/13/16 04:00 94 Room Air 06/13/16 00:00 94 Room Air 06/12/16 23:24 37.0 82 18 130/76 90 Room Air 06/12/16 20:00 94 Room Air 06/12/16 17:51 93 Room Air Lab Results: Results Past 24 Hours Test 06/13/16 05:23 Range/Units White Blood Count 4.88 4.8-10.8 K/uL Red Blood Count 4.04 4.7-6.1 M/uL Hemoglobin 12.3 14.0-18.0 g/dL Hematocrit 35.8 42-52 % Mean Corpuscular Volume 88.6 80-100 fL Mean Corpuscular Hemoglobin 30.4 25-34 pg Mean Corpuscular Hemoglobin Concent 34.4 32-36 g/dl RDW Standard Deviation 46.9 36.4-46.3 fL RDW Coefficient of Variation 14.2 11.5-14.5 % Platelet Count 114 130-400 K/uL Mean Platelet Volume 10.4 7.4-10.4 fL Prothrombin Time 32.7 9.0-12.0 SECONDS Prothromb Time International Ratio 2.9 0.9-1.1 Sodium Level 140 136-145 mmol/L Potassium Level 3.7 3.5-5.1 mmol/L Chloride Level 102 98-107 mmol/L Carbon Dioxide Level 29 21-32 mmol/L Anion Gap 9.0 3-11 mmol/L Blood Urea Nitrogen 16 7-18 mg/dl Creatinine 1.00 0.60-1.40 mg/dl Est Creatinine Clear Calc Drug Dose 57.7 ml/min Estimated GFR () 77.5 Estimated GFR (Non- 66.9 BUN/Creatinine Ratio 16.2 10-20 Random Glucose 88 70-99 mg/dl Calcium Level 8.7 8.5-10.1 mg/dl
[2016-06-13] MEDS ORDERED: FUROSEMIDE INJ 20 MG in SYRINGE 0 ML IV SCH (17:30)
[2016-06-13 19:59] LABS: URINE APPEARANCE CLEAR (CLEAR); URINE BILIRUBIN NEG (NEG); URINE COLOR YELLOW; URINE NITRITE NEG (NEG); URINE PH 5.5 (4.5-7.5); URINE SPECIFIC GRAVITY 1.008 (1.000-1.030); UROBILINOGEN NEG (NEG); ZZUR CULT IF INDIC CLEAN CATCH NO
[2016-06-13 20:09] LABS: MANUAL MICROSCOPIC REQUIRED? NO; REVIEW REQ? NO
[2016-06-13] MEDS: DOCUSATE SODIUM/SENNA 50/8.6MG TAB PO SCH (20:24)
[2016-06-13] MEDS: LATANOPROST 0.005% OP SOLN 2.5 ML BTL OPL SCH (20:24)
[2016-06-13] MEDS: ZOLPIDEM TARTRATE 5 MG TAB PO PRN (23:38)
[2016-06-14 04:00] VITALS: BP 114/66; PULSE 63; TEMP 36.4; O2SAT 97
[2016-06-14] MEDS: LEVOTHYROXINE 75 MCG TAB PO SCH (05:23)
[2016-06-14 06:55] LABS: HEMATOCRIT 37.7 % (42-52); MEAN CELL VOLUME 87.7 fL (80-100); MEAN CORPUSCULAR HEMOGLOBIN 29.3 pg (25-34); MEAN CORPUSCULAR HGB CONC 33.4 g/dl (32-36); MEAN PLATELET VOLUME 10.3 fL (7.4-10.4); PLATELET COUNT 131 K/uL (130-400); WHITE BLOOD COUNT 5.03 K/uL (4.8-10.8)
[2016-06-14 07:20] LABS: INR 3.3 (0.9-1.1); PROTHROMBIN TIME (PATIENT) 37.6 SECONDS (9.0-12.0)
[2016-06-14 07:25] LABS: CALCIUM 8.7 mg/dl (8.5-10.1); CREATININE 1.2 mg/dl (0.60-1.40); POTASSIUM 3.8 mmol/L (3.5-5.1)
[2016-06-14 07:39] VITALS: BP 116/67; PULSE 52; TEMP 36.3; O2SAT 95
[2016-06-14] MEDS ORDERED: FUROSEMIDE 20 MG TAB PO SCH (09:00)
[2016-06-14] MEDS: IPRATROPIUM BROMIDE/ALBUTEROL respimat INH INH SCH ×2 (09:37→12:22)
[2016-06-14] MEDS: SERTRALINE HCL 50 MG TAB PO SCH (09:37)
[2016-06-14] MEDS: DOXYCYCLINE HYCLATE 100 MG CAP PO SCH (09:37)
[2016-06-14] MEDS: CHOLECALCIFEROL 1000 INTER.UNIT TAB PO SCH (09:37)
[2016-06-14] MEDS: PANTOprazole SOD 40 MG TAB PO SCH (09:37)
[2016-06-14] MEDS: ASPIRIN 81 MG ECTAB PO SCH (09:38)
[2016-06-14] MEDS: FUROSEMIDE 20 MG TAB PO SCH (09:38)
[2016-06-14] MEDS: OXYBUTYNIN CHLORIDE 5 MG TABCR PO SCH (09:38)
[2016-06-14 12:08] VITALS: BP 126/75; PULSE 71; TEMP 36.3; O2SAT 92
[2016-06-14] MEDS ORDERED: PRED10TA PO (12:13)
[2016-06-14] MEDS ORDERED: DXY100 PO (12:13)
--- NOTE | 2016-06-14 12:22 | Discharge Instructions ---
Discharge Instructions Date of Service Jun 14, 2016. Admission Reason for Admission: Pneumonia Discharge Discharge Diagnosis / Problem: BRONCHITIS. INTERSITIAL LUNG DISEASE Discharge Goals Goal(s): Decrease discomfort, Improve function Activity Recommendations Activity Limitations: resume your previous activity . Instructions / Follow-Up Instructions / Follow-Up FOLLOWUP WITH FAMILY DOCTOR ON June AT 2:45PM. FOLLOWUP WITH PULMONARY OR WITH FAMILY DOCTOR REFERRAL. FOLLOWUP WITH COUMADIN CLINIC FOR COUMADIN DOSING Current Hospital Diet Patient's current hospital diet: AHA Diet (Heart Healthy) Discharge Diet Recommended Diet: AHA Diet (Heart Healthy) Pending Studies Studies pending at discharge: no Medical Emergencies . Who to Call and When: Medical Emergencies: If at any time you feel your situation is an emergency, please call 911 immediately. . Non-Emergent Contact Non-Emergency issues call your: Primary Care Provider . . "Provider Documentation" section prepared by Ludin Arana. VTE Core Measure Inpt VTE Proph given/why not?: Warfarin (Coumadin)
[2016-06-14 12:33] VITALS: BP 126/75; PULSE 71; TEMP 36.3; O2SAT 92
--- NOTE | 2016-06-14 17:43 | Progress Note ---
Internal Med Progress Note Date of Service: Jun 14, 2016. Provider Documentation: SUBJECTIVE: resting comfortably denies sob has chronic cough ok to go home OBJECTIVE: Vital Signs-as noted below Exam: General-alert and awake and oriented ENT-normal hearing Neck-no neck masses Lungs-cta b/l mild diminished breath sounds no wheezing or crackles Heart-s1 and s2 heard regular rate and rhythm no murmurs Abdomen-soft bowel sounds present non tender no distension Extremities- no erythema Neuro-alert and awake moves extremities Lab data as noted below. ASSESSMENT & PLAN: SOB Mild Interstitial lung disease flare? Has chronic cough with sputum No consolidation or PE on Ct scan Elevated PH on abg-mostly hyperventilation MRSA swab positive elevated lactic acid mostly from increased breathing which normalized now was empirically started on iv Zosyn, vanco and po doxycycline and fluids will f/u cx monitor vitals currently only on doxycycline Son request pulmonary consult. sen by pulmonary and appreciate inputs f/u with pulmonary RENAL CELL CA f/u as out patient CHRONIC DIASTOLIC CHF euvolemic holding diuretics for hyponatremia , dehydration on fluids restarted diuretics and stopped fluids HYPOTHYROIDISM on levothyroxine DVT PROPHYLAXIS on Coumadin INR therapeutic Discharged home Vital Signs: Date Time Temp Pulse Resp B/P Pulse Ox O2 Delivery O2 Flow Rate FiO2 06/14/16 12:33 36.3 71 16 92 Room Air 06/14/16 12:08 36.3 71 16 126/75 92 Room Air 06/14/16 12:06 Room Air 06/14/16 08:00 Nasal Cannula 2.0 06/14/16 07:39 36.3 52 16 116/67 95 Room Air 06/14/16 04:00 Nasal Cannula 2.0 06/14/16 04:00 36.4 63 18 114/66 97 Nasal Cannula 2.0 06/14/16 00:00 Nasal Cannula 2.0 06/13/16 23:55 36.3 60 18 130/70 96 2.0 06/13/16 20:00 96 Nasal Cannula 2.0 06/13/16 19:51 36.4 54 20 107/66 93 Room Air Lab Results: Results Past 24 Hours Test 06/13/16 19:25 06/14/16 05:49 Range/Units Urine Color YELLOW Urine Appearance CLEAR CLEAR Urine pH 5.5 4.5-7.5 Urine Specific [place] 1.008 1.000-1.030 Urine Protein NEG NEG Urine Glucose (UA) NEG NEG Urine Ketones NEG NEG Urine Occult Blood NEG NEG Urine Nitrite NEG NEG Urine Bilirubin NEG NEG Urine Urobilinogen NEG NEG Urine Leukocyte Esterase NEG NEG White Blood Count 5.03 4.8-10.8 K/uL Red Blood Count 4.30 4.7-6.1 M/uL Hemoglobin 12.6 14.0-18.0 g/dL Hematocrit 37.7 42-52 % Mean Corpuscular Volume 87.7 80-100 fL Mean Corpuscular Hemoglobin 29.3 25-34 pg Mean Corpuscular Hemoglobin Concent 33.4 32-36 g/dl RDW Standard Deviation 44.7 36.4-46.3 fL RDW Coefficient of Variation 13.9 11.5-14.5 % Platelet Count 131 130-400 K/uL Mean Platelet Volume 10.3 7.4-10.4 fL Prothrombin Time 37.6 9.0-12.0 SECONDS Prothromb Time International Ratio 3.3 0.9-1.1 Sodium Level 138 136-145 mmol/L Potassium Level 3.8 3.5-5.1 mmol/L Chloride Level 99 98-107 mmol/L Carbon Dioxide Level 28 21-32 mmol/L Anion Gap 11.0 3-11 mmol/L Blood Urea Nitrogen 26 7-18 mg/dl Creatinine 1.20 0.60-1.40 mg/dl Est Creatinine Clear Calc Drug Dose 48.1 ml/min Estimated GFR () 62.2 Estimated GFR (Non- 53.7 BUN/Creatinine Ratio 22.0 10-20 Random Glucose 102 70-99 mg/dl Calcium Level 8.7 8.5-10.1 mg/dl
--- NOTE | 2016-06-14 17:50 | Discharge Summary ---
Discharge Summary Date of Service Jun 14, 2016. Discharge Summary Admission Date: Jun 10, 2016 at 23:04 Discharge Date: Jun 14, 2016 Discharge Disposition: Home Principal Diagnosis: SOB INTERSTITIAL LUNG DISEASE BRONCHITIS Secondary Diagnoses/Problems: 1) AAA (abdominal aortic aneurysm) Permanent Comment: 5.1 cm s/p AAA repair 08/08/2011 Status: Resolved (2) Anxiety Status: Chronic (3) CAD (coronary artery disease) Permanent Comment: suspected, hx of abnormal stress, patient declined cardiac cath Status: Chronic (4) CKD (chronic kidney disease) stage 3, GFR 30-59 ml/min Status: Chronic (5) Diastolic CHF Permanent Comment: echo 03/2015 - EF 60-65%, grade II diastolic dysfunction Status: Chronic (6) Dyslipidemia Status: Chronic (7) HTN (hypertension) Status: Chronic (8) Hypothyroid Status: Chronic (9) Prostate cancer Status: Chronic Procedures: CTA CHEST: 1. No central or lobar pulmonary emboli. Segmental and subsegmental pulmonary arteries suboptimally assessed due to respiratory motion, particularly within the lower lobes. 2. No lobar consolidation. Lung suboptimally assessed due to respiratory motion. Subpleural reticulation and ground glass opacities is unchanged and favors interstitial lung disease. No honeycombing. Consultations: PULMONARY Medication Reconciliation New Medications: Prednisone Tab (Prednisone) 10 Mg Tab 40 MG PO UD, #20 TAB PREDNISONE 40MG PO DAILY X 2 DAYS THEN PREDNISONE 30MG PO DAILY X 2 DAYS THEN PREDNISONE 20MG PO DAILY X 2 DAYS THEN PREDNISONE 10MG PO DAILY X 2 DAYS THEN STOP. Doxycycline Hyclate (Doxycycline Hyclate) 100 Mg Cap 100 MG PO BID, #10 CAP Continued Medications: Albuterol Hfa (Ventolin Hfa) 200 Puffs/92134 Mcg Aers 2 PUFFS PO Q4H PRN for Wheezing Cholecalciferol (Vitamin D3) 1,000 Unit Tab 1 TAB PO DAILY for 90 Days, #90 TAB 3 Refills Furosemide (Lasix) 20 Mg Tab 20 MG PO DAILY, TAB Latanoprost (Xalatan 0.005% Oph Irma) 0.005 % Irma 1 DROPS OPL HS, 3 Refills Levothyroxine Sodium (Synthroid) 75 Mcg Tab 75 MCG PO DAILY, TAB 6AM Melatonin (Melatonin Maximum Strengt) 5 Mg Tab 1 TAB PO HS for 30 Days, #30 TAB Nitroglycerin (Nitrostat) 0.4 Mg Sub 0.4 MG UT UD PRN for Chest Pain Oxybutynin Chloride Er (Ditropan Xl) 10 Mg Tab 1 TAB PO DAILY for 30 Days, #30 TAB 5 Refills Pantoprazole (Pantoprazole Sodium) 40 Mg Tab 40 MG PO BID for 30 Days, TAB Sennosides-Docusate Sodium (Senexon-S) 1 Tab Tab 1 TAB PO HS Sertraline (Zoloft) 50 Mg Tab 50 MG PO DAILY, TAB Warfarin Sod (Jantoven) 3 Mg Tab 3 MG PO 5XWK, TAB EXCEPT FRIDAY AND FRIDAY Warfarin Sod (Jantoven) 3 Mg Tab 1.5 MG PO 2XWK, TAB FRIDAY AND FRIDAY ONLY Discontinued Medications: Levofloxacin (Levaquin) 500 Mg Tab 500 MG PO DAILY for 9 Days, TAB Admission Information HPI (per Admitting provider): The patient is an 86 year old who presents to the Emergency Room with complaints of persistent shortness of breath beginning one day prior to arrival. EMS notes the patient received one DuoNeb treatment on the way in, which has helped his breathing. pt was in the ED earlier yesterday morning ( 06/10/16 ) evaluated by Dr. Seo this morning for shortness of breath /Cough , nausea , vomiting Cxray shows possible pneumonia on the left side CT abdomen /pelvis done pt is on Coumadin for PE, INR was therapeutic no complain of chest pain or fever at that time. The patient was advised to be admitted but he refused at that time. . The patient was placed on oral Levaquin was discharged form ED Family states the patient experienced nausea and vomiting after leaving the hospital today, with worsening symptom of cough and SOB family convinced him to return to ED Hospital Course SOB Mild Interstitial lung disease flare? Has chronic cough with sputum No consolidation or PE on Ct scan Elevated PH on abg-mostly hyperventilation MRSA swab positive elevated lactic acid mostly from increased breathing which normalized now was empirically started on iv Zosyn, vanco and po doxycycline and fluids will f/u cx monitor vitals currently only on doxycycline Son request pulmonary consult. sen by pulmonary and appreciate inputs f/u with pulmonary RENAL CELL CA f/u as out patient CHRONIC DIASTOLIC CHF euvolemic holding diuretics for hyponatremia , dehydration on fluids restarted diuretics and stopped fluids HYPOTHYROIDISM on levothyroxine DVT PROPHYLAXIS on Coumadin INR therapeutic Discharged home Total time spent on discharge = 35MINUTES This includes examination of the patient, discharge planning, medication reconciliation, and communication with other providers. Discharge Instructions Discharge Instructions Date of Service Jun 14, 2016. Admission Reason for Admission: Pneumonia Discharge Discharge Diagnosis / Problem: BRONCHITIS. INTERSITIAL LUNG DISEASE Discharge Goals Goal(s): Decrease discomfort, Improve function Activity Recommendations Activity Limitations: resume your previous activity . Instructions / Follow-Up Instructions / Follow-Up FOLLOWUP WITH FAMILY DOCTOR ON June AT 2:45PM. FOLLOWUP WITH PULMONARY OR WITH FAMILY DOCTOR REFERRAL. FOLLOWUP WITH COUMADIN CLINIC FOR COUMADIN DOSING Current Hospital Diet Patient's current hospital diet: AHA Diet (Heart Healthy) Discharge Diet Recommended Diet: AHA Diet (Heart Healthy) Pending Studies Studies pending at discharge: no Medical Emergencies . Who to Call and When: Medical Emergencies: If at any time you feel your situation is an emergency, please call 911 immediately. . Non-Emergent Contact Non-Emergency issues call your: Primary Care Provider . . "Provider Documentation" section prepared by Ludin Arana. VTE Core Measure Inpt VTE Proph given/why not?: Warfarin (Coumadin)
[2016-08-07] MEDS ORDERED: CARV6.252 PO (16:15)
[2016-08-07] MEDS ORDERED: PRED-301 PO (16:15)
[2016-08-07] MEDS ORDERED: LORA-741 PO (19:00)
== END 2016-06-14 12:45 | disposition home or self-care (01) | DRG 197 ==
LOC: ENRESERVTM → ENRESERVDT → EDSEX 22:01 → EDBD 22:01 → C.EDB 22:02 → C.MED 23:04
PROVIDERS: ADMIT Hospitalist; ATTEND Internal Medicine
DX: J84.89 Other specified interstitial pulmonary diseases (principal); I13.0 Hypertensive heart and chronic kidney disease with heart failure and stage 1 through stage 4 chronic kidney disease, or unspecified chronic kidney disease; I50.32 Chronic diastolic (congestive) heart failure; C64.9 Malignant neoplasm of unspecified kidney, except renal pelvis; E87.1 Hypo-osmolality and hyponatremia; Z90.79 Acquired absence of other genital organ(s); Z79.01 Long term (current) use of anticoagulants; F41.9 Anxiety disorder, unspecified; I25.10 Atherosclerotic heart disease of native coronary artery without angina pectoris; N18.3 Chronic kidney disease, stage 3 (moderate); E78.5 Hyperlipidemia, unspecified; E03.9 Hypothyroidism, unspecified; Z85.46 Personal history of malignant neoplasm of prostate; Z87.11 Personal history of peptic ulcer disease; Z90.49 Acquired absence of other specified parts of digestive tract; Z87.891 Personal history of nicotine dependence; Z82.49 Family history of ischemic heart disease and other diseases of the circulatory system; Z79.899 Other long term (current) drug therapy; Z86.711 Personal history of pulmonary embolism; Z66 Do not resuscitate; J40 Bronchitis, not specified as acute or chronic; R06.02 Shortness of breath; R09.02 Hypoxemia; T14.8 Other injury of unspecified body region; W57.XXXA Bitten or stung by nonvenomous insect and other nonvenomous arthropods, initial encounter; I44.0 Atrioventricular block, first degree

== ENCOUNTER 2016-07-24 21:13 | Emergency (ER) | payer OTHER ==
[~2016-07-24] VITALS: Ht 185.4 cm; Wt 95.0 kg
[~2016-07-24 21:13] MED LIST changes: -AMB5 PO; -CMD3 PO; +DXY100 PO; -FERR1TAB13 PO; -LEVO-366 PO; +PRED10TA PO; -RXC5 PO
[2016-07-24 21:17] VITALS: Ht 185.4 cm; Wt 95.0 kg
[2016-07-24 22:44] VITALS: O2SAT 97
--- NOTE | 2016-07-24 22:58 | EMERGENCY ROOM VISIT NOTE ---
History Report prepared by Sydney: Royal Duvall Under the Supervision of: Dr. Abhi Scott M.D. First contact with patient: 22:40 Chief Complaint: SHORTNESS OF BREATH Stated Complaint: SOB Nursing Triage Summary: Triage Notes: Per son breathing problem, n/v. Has been having problems, worsened yesterday. SOB. See at [facility] the other day, "there's something with his heart", pt had an Echo. Pt denies any pain. History of Present Illness The patient is a 86 year old male who presents to the Emergency Room with complaints of constant shortness of breath for the past couple of weeks. The patient states that he was at [facility], and he had an echo done for his shortness of breath, and there were no results. The patient denies any changes in leg swelling, changes in cough, and denies any fever or chest pain. The patient denies any lung disease, COPD, or emphysema. The patient denies wearing oxygen at home, and he states that the shortness of breath is the same no matter what he is doing. The patient denies smoking or using an inhaler, and he states that he takes Coumadin and just finished taking prednisone. Source of History: patient Onset: a couple of weeks ago Position: other (global) Quality: other (shortness of breath) Timing: constant Associated Symptoms: No chest pain, No fevers Review of Systems See HPI for pertinent positives & negatives. A total of 10 systems reviewed and were otherwise negative. Past Medical & Surgical Medical Problems: (1) AAA (abdominal aortic aneurysm) (2) Anxiety (3) CAD (coronary artery disease) (4) CKD (chronic kidney disease) stage 3, GFR 30-59 ml/min (5) Diastolic CHF (6) Dyslipidemia (7) HTN (hypertension) (8) Hypothyroid (9) Left hip pain (10) Lesion of right [place] kidney (11) Pneumonia (12) Prostate cancer (13) Pulmonary embolus Surgical Problems: (1) duodenal ulcer repair (2) H/O prostatectomy (3) H/O right inguinal hernia repair (4) History of AAA (abdominal aortic aneurysm) repair (5) History of appendectomy (6) History of cataract surgery (7) History of endarterectomy Family History Hypertension Social History Smoking Status: Former Smoker Alcohol Use: none Drug Use: none Marital Status: Housing Status: lives with significant other Occupation Status: retired Current/Historical Medications Scheduled Cholecalciferol (Vitamin D3), 1 TAB PO DAILY Furosemide (Lasix), 20 MG PO DAILY Latanoprost (Xalatan 0.005% Oph Irma), 1 DROPS OPL HS Levothyroxine Sodium (Synthroid), 75 MCG PO DAILY Melatonin (Melatonin Maximum Strengt), 1 TAB PO HS Oxybutynin Chloride Er (Ditropan Xl), 1 TAB PO DAILY Pantoprazole (Pantoprazole Sodium), 40 MG PO BID Sennosides-Docusate Sodium (Senex[place]-S), 1 TAB PO HS Sertraline (Zoloft), 50 MG PO DAILY Warfarin Sod (Jantoven), 3 MG PO 5XWK Scheduled PRN Albuterol Hfa (Ventolin Hfa), 2 PUFFS PO Q4H PRN for Wheezing Nitroglycerin (Nitrostat), 0.4 MG UT UD PRN for Chest Pain Miscellaneous Medications Warfarin Sod (Jantoven), 0.5 TAB PO Allergies Coded Allergies: No Known Allergies (Unverified , 07/24/16) Physical Exam Vital Signs Date Time Temp Pulse Resp B/P Pulse Ox O2 Delivery O2 Flow Rate FiO2 07/25/16 01:11 36.9 74 19 155/94 98 07/25/16 01:10 74 19 155/94 98 Room Air 07/25/16 01:07 74 07/25/16 00:34 88 19 155/88 98 Room Air 07/25/16 00:13 70 19 150/86 99 Nasal Cannula 2.0 07/24/16 23:25 84 Room Air 07/24/16 23:25 72 19 182/87 96 Nasal Cannula 2.0 07/24/16 22:44 97 Room Air 2.0 07/24/16 22:44 97 Room Air 2.0 07/24/16 22:43 73 19 99 Nasal Cannula 2.0 07/24/16 22:13 64 14 97 Nasal Cannula 2.0 07/24/16 22:11 97 Room Air 2.0 07/24/16 21:43 63 15 94 Nasal Cannula 2.0 07/24/16 21:32 63 07/24/16 21:29 135/75 07/24/16 21:17 36.9 73 20 136/80 91 Room Air Physical Exam GENERAL: Patient is in no acute distress. HEENT: No acute trauma, normocephalic atraumatic, mucous membranes moist, no nasal congestion, no scleral icterus. NECK: No stridor, no adenopathy, no meningismus, trachea is midline. LUNGS: Clear to auscultation bilaterally, no wheeze, no rhonchi, breath sounds equal. HEART: Without murmurs gallops or rubs, regular rate and rhythm. ABDOMEN: Soft, nontender, bowel sounds positive, no hernias, no peritonitis. EXTREMITIES: Mild bilateral pedal edema. No cyanosis, full range of motion of all the joints without pain or difficulty, no signs for acute trauma. NEUROLOGIC: No acute motor or sensory deficits, no focal weakness. SKIN: No rash, no jaundice, no diaphoresis. Medical Decision & Procedures ER Provider Diagnostic Interpretation: Adult transthoracic Echocardiography Report done on 07/18/16: Normal biventricular systolic function is noted with no evidence of right ventricular strain. The LV wall thickness is mildly increased (concentric). No LV segmental wall motion abnormalities. The qualitative LV ejection fraction is 55-59% (normal). The right ventricular cavity size is normal (basal dimension < 4.2cm RV apical 4 chamber view). The right ventricular systolic function is normal as assesses by the tricuspid annular plane systolic excursion (TAPSE) (normal >1.7cm). Mild tricuspid regurgitation is present. The IVC is not well visualized so right atrial pressure cannot be estimated. There is no evidence of pulmonary hypertension The estimate right ventricular systolic pressure is normal at 27 millimeters Hg. Mild mitral regurgitation is present. The proximal ascending thoracic aorta is mildly enlarged Radiology results as stated below per my review and radiologist interpretation: CTA CHEST: Comparison: CT chest 06/11/16 No evidence of pulmonary embolism. Extensive atherosclerotic plaque of aorta. No evidence of abortive aneurysm or dissection. Heart is enlarged. Coronary artery calcifications. Evaluation of lung parenchyme somewhat limited by motion artifact. Atelectasis at right lung base. Reticular densities and subpleural groundglass opacity, suggestive of interstitial lung disease are similar to prior, Right apical pleural calcification, also similar to prior. Colonic diverticulosis. Elevation of right hemidiaphragm Radiologist: Ned Erazo MD Radiology results as stated below per my interpretation: CHEST X-RAY: Left lower lobe congestion or possible fluid. Results improved compared to . No pneumothorax. No obvious CHF Laboratory Results 07/24/16 22:38 Red Blood Count 4.18, Mean Corpuscular Volume 91.1, Mean Corpuscular Hemoglobin 29.2, Mean Corpuscular Hemoglobin Concent 32.0, Mean Platelet Volume 10.1, Neutrophils (%) (Auto) 54.0, Lymphocytes (%) (Auto) 30.0, Monocytes (%) (Auto) 14.3, Eosinophils (%) (Auto) 1.0, Basophils (%) (Auto) 0.3, Neutrophils # (Auto ) 3.79, Lymphocytes # (Auto) 2.10, Monocytes # (Auto) 1.00, Eosinophils # (Auto ) 0.07, Basophils # (Auto) 0.02 07/24/16 22:38 Test 07/24/16 22:38 White Blood Count 7.01 K/uL (4.8-10.8) Red Blood Count 4.18 M/uL (4.7-6.1) Hemoglobin 12.2 g/dL (14.0-18.0) Hematocrit 38.1 % (42-52) Mean Corpuscular Volume 91.1 fL (80-100) Mean Corpuscular Hemoglobin 29.2 pg (25-34) Mean Corpuscular Hemoglobin Concent 32.0 g/dl (32-36) Platelet Count 188 K/uL (130-400) Mean Platelet Volume 10.1 fL (7.4-10.4) Neutrophils (%) (Auto) 54.0 % Lymphocytes (%) (Auto) 30.0 % Monocytes (%) (Auto) 14.3 % Eosinophils (%) (Auto) 1.0 % Basophils (%) (Auto) 0.3 % Neutrophils # (Auto) 3.79 K/uL (1.4-6.5) Lymphocytes # (Auto) 2.10 K/uL (1.2-3.4) Monocytes # (Auto) 1.00 K/uL (0.11-0.59) Eosinophils # (Auto) 0.07 K/uL (0-0.5) Basophils # (Auto) 0.02 K/uL (0-0.2) RDW Standard Deviation 49.6 fL (36.4-46.3) RDW Coefficient of Variation 14.8 % (11.5-14.5) Immature Granulocyte % (Auto) 0.4 % Immature Granulocyte # (Auto) 0.03 K/uL (0.00-0.02) Prothrombin Time 16.3 SECONDS (9.0-12.0) Prothromb Time International Ratio 1.5 (0.9-1.1) Activated Partial Thromboplast Time 29.3 SECONDS (21.0-31.0) Partial Thromboplastin Ratio 1.1 Anion Gap 7.0 mmol/L (3-11) Est Creatinine Clear Calc Drug Dose 41.2 ml/min Estimated GFR () 51.6 Estimated GFR (Non- 44.5 BUN/Creatinine Ratio 22.9 (10-20) Calcium Level 8.3 mg/dl (8.5-10.1) Total Bilirubin 0.3 mg/dl (0.2-1) Aspartate Amino Transf (AST/SGOT) 15 U/L (15-37) Alanine Aminotransferase (ALT/SGPT) 17 U/L (12-78) Alkaline Phosphatase 64 U/L (45-117) Troponin I < 0.015 ng/ml (0-0.045) Pro-B-Type Natriuretic Peptide 160 pg/ml (0-1800) Total Protein 7.0 gm/dl (6.4-8.2) Albumin 3.3 gm/dl (3.4-5.0) Globulin 3.7 gm/dl (2.5-4.0) Albumin/Globulin Ratio 0.9 (0.9-2) Laboratory results reviewed by me. Medications Administered Medications (Trade) Dose Ordered Sig/Amilcar Route Start Time Stop Time Status Last Admin Dose Admin Albuterol/ Ipratropium (Duoneb) 3 ml NOW STAT INH 07/25/16 00:33 07/25/16 00:35 DC 07/25/16 00:38 3 ML Diphenhydramine HCl (Benadryl Inj) 12.5 mg NOW STAT IV 07/25/16 00:34 07/25/16 00:35 DC 07/25/16 00:39 12.5 MG Lorazepam (Ativan Inj) 0.5 mg NOW STAT IV 07/25/16 00:42 07/25/16 00:43 DC 07/25/16 00:47 0.5 MG ECG Indication: SOB/dyspnea Rate (beats per minute): 52 Rhythm: sinus bradycardia Findings: no acute ischemic change, no ectopy Change: Repeat EKG had no significant change ED Course 2240: The patient was evaluated in room C6. A complete history and physical exam was performed. 2346: I reevaluated the patient, and he understands that his O2 is low, but he still wants to go home. 0033: DuoNeb 3ml INH 0034: Benadryl Inj 12.5mg IV 0042: Ativan Inj 0.5mg IV 0055: Reevaluated the patient, and his son is just asking to leave since the patient just wants to go home. Discussed results and discharge instructions: They verbalized understanding and agreement. The patient is ready for discharge. Medical Decision The patient is a 86 year old male who presents to the ED with complaints of shortness of breath. Differential diagnoses considered include interstitial lung disease, COPD, emphysema, bronchitis, pneumonia, CHF, cardiac ischemia, dysrhythmia. There is no leukocytosis or concerning anemia. No significant electrolyte abnormality, kidney failure, hepatitis. EKG shows a sinus bradycardia with a rate of 52, no acute ischemia. Cardiac enzyme testing times one is not consistent with acute cardiac injury. Second EKG done during the patient's stay shows no acute ischemia and the rhythm is sinus. Chest film shows some congestion at the left base but this is improved compared to previous films, there was no pneumothorax or CHF. BNP was not elevated making heart failure less likely. INR was subtherapeutic-the family is aware and adjustments are being made with his Coumadin dosing. Chest CT shows some chronic findings, no acute PE was noted, there was no focal pneumonia. The patient was given a DuoNeb, he received IV Benadryl and IV Ativan. The Benadryl and Ativan were for agitation. The patient was hypoxic when he was walked, his saturation dropped to the mid 80s. The patient had a reasonable O2 saturation when resting on the bed. I talked to the patient and the family about staying in the hospital because of the hypoxia. The patient refused. The patient states that he is going home, the agitation he demonstrated came from the possibility of staying in the hospital. At the patient and the family's request, the patient is being discharged. The patient will contact his doctor tomorrow about home O2. At this point, the cause for his hypoxia and dyspnea is not clear, I suspect though that it is multifactorial. There is nothing found acute today that would explain his issues. Patient was encouraged to return for worsening symptoms or if he changed his mind about the need for hospitalization. Impression Primary Impression: Shortness of breath Scribe Attestation The scribe's documentation has been prepared under my direction and personally reviewed by me in its entirety. I confirm that the note above accurately reflects all work, treatment, procedures, and medical decision making performed by me. Departure Information Dispostion Home / Self-Care Referrals No Doctor, Assigned (PCP) Forms HOME CARE DOCUMENTATION FORM, IMPORTANT VISIT INFORMATION Patient Instructions My [facility] Additional Instructions talk with your doctor about home oxygen return if worsening as we discussed no new findings today on workup INR was low at 1.5--be sure to talk with the coumadin clinic about the value
[2016-07-24 23:06] LABS: BASO % 0.3 %; BASO ABS # 0.02 K/uL (0-0.2); COMPLETE YES; HEMATOCRIT 38.1 % (42-52); IG% 0.4 %; MEAN CELL VOLUME 91.1 fL (80-100); MEAN CORPUSCULAR HEMOGLOBIN 29.2 pg (25-34); MEAN PLATELET VOLUME 10.1 fL (7.4-10.4); MONO % 14.3 %; PLATELET COUNT 188 K/uL (130-400); RED BLOOD COUNT 4.18 M/uL (4.7-6.1); WHITE BLOOD COUNT 7.01 K/uL (4.8-10.8)
[2016-07-24 23:17] LABS: INR 1.5 (0.9-1.1); PARTIAL THROMBOPLASTIN RATIO 1.1; PROTHROMBIN TIME (PATIENT) 16.3 SECONDS (9.0-12.0)
[2016-07-24 23:31] LABS: ALT/SGPT 17 U/L (12-78); AST/SGOT 15 U/L (15-37); BLOOD UREA NITROGEN 32 mg/dl (7-18); BUN/CREATININE RATIO 22.9 (10-20); CALCIUM 8.3 mg/dl (8.5-10.1); CARBON DIOXIDE 31 mmol/L (21-32); CHLORIDE 104 mmol/L (98-107); GLUCOSE 115 mg/dl (70-99); POTASSIUM 4.4 mmol/L (3.5-5.1); SODIUM 142 mmol/L (136-145)
[2016-07-24 23:36] LABS: ALB/GLOB RATIO 0.9 (0.9-2); ALKALINE PHOSPHATASE 64 U/L (45-117)
[2016-07-25] MEDS ORDERED: OPTIRAY 320 IV PRN
[2016-07-25] MEDS ORDERED: ALBUT/IPRATROP 3MG/0.5MG NEB 3 ML VIAL INH STA (00:33)
[2016-07-25] MEDS ORDERED: DiphenhydrAMINE HCL 50 MG/ML VIAL IV STA (00:34)
[2016-07-25] MEDS ORDERED: LORAZEPAM 2 MG/ML 1 ML VIAL IV STA (00:42)
[2016-07-25 01:11] VITALS: BP 155/94; PULSE 74; TEMP 36.9; O2SAT 98
--- NOTE | 2016-07-25 06:39 | DIAGNOSTIC IMAGING REPORT ---
CHEST ONE VIEW PORTABLE CLINICAL HISTORY: Respiratory distress. Dyspnea. COMPARISON STUDY: Chest radiograph June 12, 2016. FINDINGS: There is no pneumothorax or pleural effusion. Elevation of the right hemidiaphragm is unchanged. Mild cardiomegaly is unchanged. There is no evidence of pulmonary edema. No consolidation to suggest pneumonia is noted. The appearance of the chest is unchanged. Mild bibasilar opacities favor atelectasis. IMPRESSION: No acute cardiopulmonary findings. No change in appearance of the chest. Electronically signed by: Heath Mendez M.D. 07/25/2016 6:38 AM Dictated Date/Time: 07/25/2016 6:37 AM
--- NOTE | 2016-07-25 08:06 | DIAGNOSTIC IMAGING REPORT ---
CHEST CTA for PULMONARY ARTERIES CT DOSE: 305.48 mGy.cm HISTORY: Atypical chest pain. Short of breath. TECHNIQUE: Multiaxial CT images of the chest were performed following the intravenous administration of contrast to evaluate the pulmonary arteries. Maximal intensity projection images were also obtained. COMPARISON STUDY: Chest CTA 06/11/2016. FINDINGS: Atherosclerotic plaque throughout the normal caliber thoracic aorta. Bilateral lower lobe subsegmental pulmonary arteries are secured by motion artifact. Otherwise, no filling defects within the remaining pulmonary arteries to suggest pulmonary embolus. The heart remains mildly enlarged. No pleural or pericardial effusions. No pneumothorax. The central airways are patent. Mild elevation of the right hemidiaphragm, unchanged. A stable 4 mm indeterminate nodule within the left lung apex. Stable chronic interstitial thickening. No new focal lung consolidations to suggest pneumonia. No mediastinal or hilar lymphadenopathy. IMPRESSION: 1. No evidence for pulmonary embolus with limitations as described above. 2. No new focal lung consolidations to suggest pneumonia. 3. Chronic interstitial changes are again noted. 4. Stable 4 mm indeterminate pulmonary nodule within the left lung apex. Electronically signed by: Arden Calle M.D. 07/25/2016 8:05 AM Dictated Date/Time: 07/25/2016 8:01 AM
[2016-08-07] MEDS ORDERED: PRED-301 PO (16:15)
[2016-08-07] MEDS ORDERED: CARV6.252 PO (16:15)
[2016-08-07] MEDS ORDERED: LORA-741 PO (19:00)
== END 2016-07-25 01:12 | disposition home or self-care (01) ==
LOC: C.EDB 21:14 → C.EDC 07-25 01:12
DX: R06.02 Shortness of breath (principal); R00.1 Bradycardia, unspecified; I12.9 Hypertensive chronic kidney disease with stage 1 through stage 4 chronic kidney disease, or unspecified chronic kidney disease; N18.3 Chronic kidney disease, stage 3 (moderate); I25.10 Atherosclerotic heart disease of native coronary artery without angina pectoris; I50.30 Unspecified diastolic (congestive) heart failure; F41.9 Anxiety disorder, unspecified; Z85.46 Personal history of malignant neoplasm of prostate; Z86.711 Personal history of pulmonary embolism; Z98.890 Other specified postprocedural states; Z98.49 Cataract extraction status, unspecified eye; Z87.891 Personal history of nicotine dependence; Z79.01 Long term (current) use of anticoagulants; Z79.899 Other long term (current) drug therapy; Z82.49 Family history of ischemic heart disease and other diseases of the circulatory system

== ENCOUNTER 2016-10-26 11:20 | Emergency (ER) | payer OTHER ==
[~2016-10-26] VITALS: Ht 182.9 cm; Wt 91.0 kg
[~2016-10-26 11:20] MED LIST changes: +CARV6.252 PO; -DXY100 PO; +PRED-301 PO; -PRED10TA PO
[2016-10-26 11:24] VITALS: Ht 182.9 cm; Wt 91.0 kg
[2016-10-26] MEDS ORDERED: FUROSEMIDE 40 MG/4 ML VIAL IV STA ×2 (11:57→12:17)
--- NOTE | 2016-10-26 11:59 | EMERGENCY ROOM VISIT NOTE ---
History Report prepared by Sydney: Deepthi Oconnell Under the Supervision of: Dr. Javier Grider M.D. First contact with patient: 11:49 Chief Complaint: SHORTNESS OF BREATH Stated Complaint: SOB Nursing Triage Summary: Pt is [place]. Son reports pt is having increased trouble breathing since yesterday. Denies chest pain. Prod cough. History of Present Illness The patient is an 86 year old male who presents to the Emergency Room with complaints of persistent shortness of breath that began prior to arrival. The patient additionally associates chest tightness and a productive cough. Per records the patient is on Lasix and Coumadin. The patient's family notes that the patient just had his Coumadin level checked on 10/24. The patient's family reports that the patient has seen pulmonologists in the past, but states that nothing can be done for his shortness of breath. Source of History: patient, family Onset: prior to arrival Position: other (global) Quality: other (shortness of breath) Timing: other (persistent) Associated Symptoms: + cough, + chest pain Review of Systems See HPI for pertinent positives & negatives. A total of 10 systems reviewed and were otherwise negative. Past Medical & Surgical Medical Problems: (1) AAA (abdominal aortic aneurysm) (2) Anxiety (3) CAD (coronary artery disease) (4) CKD (chronic kidney disease) stage 3, GFR 30-59 ml/min (5) Diastolic CHF (6) Dyslipidemia (7) HTN (hypertension) (8) Hypothyroid (9) Left hip pain (10) Lesion of right [place] kidney (11) Pneumonia (12) Prostate cancer (13) Pulmonary embolus Surgical Problems: (1) duodenal ulcer repair (2) H/O prostatectomy (3) H/O right inguinal hernia repair (4) History of AAA (abdominal aortic aneurysm) repair (5) History of appendectomy (6) History of cataract surgery (7) History of endarterectomy Family History Hypertension Social History Smoking Status: Former Smoker Alcohol Use: none Drug Use: none Marital Status: Housing Status: lives with significant other Occupation Status: retired Current/Historical Medications Scheduled Carvedilol (Coreg), 0.5 TAB PO BID Cholecalciferol (Vitamin D3), 1 TAB PO DAILY Furosemide (Lasix), 20 MG PO DAILY Latanoprost (Xalatan 0.005% Oph Irma), 1 DROPS OPL HS Levothyroxine Sodium (Synthroid), 75 MCG PO DAILY Melatonin (Melatonin Maximum Strengt), 1 TAB PO HS Oxybutynin Chloride Er (Ditropan Xl), 1 TAB PO HS Pantoprazole (Pantoprazole Sodium), 40 MG PO BID Prednisone (Prednisone), 5 MG PO QAM Prednisone (Prednisone Tab), 0 PO DAILY Sennosides-Docusate Sodium (Senexon-S), 1 TAB PO HS Sertraline (Zoloft), 50 MG PO DAILY Warfarin Sod (Jantoven), 3 MG PO 5XWK Scheduled PRN Albuterol Hfa (Ventolin Hfa), 2 PUFFS PO Q4H PRN for Wheezing Nitroglycerin (Nitrostat), 0.4 MG UT UD PRN for Chest Pain Miscellaneous Medications Warfarin Sod (Jantoven), 0.5 TAB PO Allergies Coded Allergies: No Known Allergies (Unverified , 08/07/16) Physical Exam Vital Signs Date Time Temp Pulse Resp B/P (MAP) Pulse Ox O2 Delivery O2 Flow Rate FiO2 10/26/16 13:42 36.4 70 22 159/84 97 10/26/16 13:20 70 22 159/84 97 10/26/16 13:01 175/88 10/26/16 12:50 55 16 100 10/26/16 12:39 52 18 161/84 100 Nebulizer 6.0 10/26/16 12:31 161/84 10/26/16 12:29 54 18 94 Room Air 10/26/16 12:20 53 23 98 10/26/16 12:01 143/71 10/26/16 11:52 36.4 56 18 162/63 94 Room Air 10/26/16 11:50 54 15 96 10/26/16 11:48 148/81 10/26/16 11:38 56 10/26/16 11:32 158/76 10/26/16 11:24 36.4 61 18 162/63 94 Room Air Physical Exam GENERAL: Patient is a healthy-appearing well-nourished male, actively coughing up phlegm. HEAD: Normocephalic atraumatic EYES: Ocular movements intact pupils equal and react to light OROPHARYNX mucous membranes are moist no exudates present no erythema or edema present NECK: Supple no nuchal rigidity CHEST: Good equal expansion LUNGS: Clear and equal to auscultation CARDIAC: Normal S1 and S2 ABDOMEN: Soft nontender no guarding BACK: No CVA tenderness EXTREMITIES: No pain upon palpation normal muscle strength in all groups no clubbing cyanosis or edema NEURO: Patient is following commands and answering questions appropriately. Alert and oriented x3 Cranial Nerves 2-12 grossly intact Medical Decision & Procedures ER Provider Diagnostic Interpretation: X-ray results as stated below per interpretation by me and the radiologist: CHEST ONE VIEW PORTABLE CLINICAL HISTORY: 86 years-old Male presenting with sob. TECHNIQUE: Portable upright AP view of the chest was obtained. COMPARISON: 08/07/2016. FINDINGS: Overlying external leads degrade image quality. Atherosclerosis of aortic arch. Cardiac silhouette top normal in size allowing for technique. Mildly low lung volumes with hypoventilatory changes. Elevation of the right hemidiaphragm unchanged. Small right pleural effusion. Degenerative changes of the spine. Upper abdomen normal. IMPRESSION: 1. Mildly low lung volumes with hypoventilatory changes. 2. Small right pleural effusion. Electronically signed by: Del Davis M.D. 10/26/2016 12:11 PM Dictated Date/Time: 10/26/2016 12:10 PM Laboratory Results 10/26/16 11:41 Red Blood Count 4.21, Mean Corpuscular Volume 92.9, Mean Corpuscular Hemoglobin 29.5, Mean Corpuscular Hemoglobin Concent 31.7, Mean Platelet Volume 10.2, Neutrophils (%) (Auto) 61.2, Lymphocytes (%) (Auto) 22.1, Monocytes (%) (Auto) 13.2, Eosinophils (%) (Auto) 2.8, Basophils (%) (Auto) 0.4, Neutrophils # (Auto ) 4.11, Lymphocytes # (Auto) 1.49, Monocytes # (Auto) 0.89, Eosinophils # (Auto ) 0.19, Basophils # (Auto) 0.03 10/26/16 11:41 Test 10/26/16 11:41 10/26/16 11:56 10/26/16 11:57 White Blood Count 6.73 K/uL (4.8-10.8) Red Blood Count 4.21 M/uL (4.7-6.1) Hemoglobin 12.4 g/dL (14.0-18.0) Hematocrit 39.1 % (42-52) Mean Corpuscular Volume 92.9 fL (80-100) Mean Corpuscular Hemoglobin 29.5 pg (25-34) Mean Corpuscular Hemoglobin Concent 31.7 g/dl (32-36) Platelet Count 167 K/uL (130-400) Mean Platelet Volume 10.2 fL (7.4-10.4) Neutrophils (%) (Auto) 61.2 % Lymphocytes (%) (Auto) 22.1 % Monocytes (%) (Auto) 13.2 % Eosinophils (%) (Auto) 2.8 % Basophils (%) (Auto) 0.4 % Neutrophils # (Auto) 4.11 K/uL (1.4-6.5) Lymphocytes # (Auto) 1.49 K/uL (1.2-3.4) Monocytes # (Auto) 0.89 K/uL (0.11-0.59) Eosinophils # (Auto) 0.19 K/uL (0-0.5) Basophils # (Auto) 0.03 K/uL (0-0.2) RDW Standard Deviation 48.8 fL (36.4-46.3) RDW Coefficient of Variation 14.4 % (11.5-14.5) Immature Granulocyte % (Auto) 0.3 % Immature Granulocyte # (Auto) 0.02 K/uL (0.00-0.02) Prothrombin Time 21.3 SECONDS (9.0-12.0) Prothromb Time International Ratio 1.9 (0.9-1.1) Activated Partial Thromboplast Time 33.8 SECONDS (21.0-31.0) Partial Thromboplastin Ratio 1.3 Anion Gap 5.0 mmol/L (3-11) Est Creatinine Clear Calc Drug Dose 43.1 ml/min Estimated GFR () 56.5 Estimated GFR (Non- 48.7 BUN/Creatinine Ratio 21.8 (10-20) Calcium Level 8.8 mg/dl (8.5-10.1) Total Bilirubin 0.4 mg/dl (0.2-1) Aspartate Amino Transf (AST/SGOT) 17 U/L (15-37) Alanine Aminotransferase (ALT/SGPT) 16 U/L (12-78) Alkaline Phosphatase 77 U/L (45-117) Total Creatine Kinase 43 U/L (39-308) Creatine Kinase MB 1.3 ng/ml (0.5-3.6) Troponin I < 0.015 ng/ml (0-0.045) Total Protein 7.3 gm/dl (6.4-8.2) Albumin 3.3 gm/dl (3.4-5.0) Globulin 4.0 gm/dl (2.5-4.0) Albumin/Globulin Ratio 0.8 (0.9-2) Bedside Troponin I < 0.030 ng/ml (0-0.045) Creatine Kinase MB Ratio (0-3.0) Labs reviewed by ED physician. Medications Administered Medications (Trade) Dose Ordered Sig/Amilcar Route Start Time Stop Time Status Last Admin Dose Admin Albuterol/ Ipratropium (Duoneb) 12 ml ONE ONCE INH 10/26/16 12:00 10/26/16 12:01 DC 10/26/16 12:29 12 ML Furosemide (Lasix Inj) 40 mg NOW STAT IV 10/26/16 11:57 10/26/16 11:58 DC 10/26/16 12:24 40 MG Lorazepam (Ativan Inj) 1 mg NOW STAT IV 10/26/16 12:30 10/26/16 12:31 DC 10/26/16 12:38 1 MG Prednisone (PredniSONE TAB) 40 mg NOW STAT PO 10/26/16 12:56 10/26/16 12:57 DC 10/26/16 12:56 40 MG ECG Indication: SOB/dyspnea Rate (beats per minute): 54 Rhythm: sinus bradycardia Findings: PAC, other (old septal infarct) ED Course 1154: Past medical records reviewed. The patient was evaluated in room C5. A complete history and physical examination was performed. 1157: Ordered Lasix Inj 40 mg IV. 1200: Ordered Duoneb 12 ml INH. 1230: Ordered Ativan Inj 1 mg IV. 1255: I reevaluated the patient and he is resting comfortably. I discussed the exam findings with him and I discussed the treatment plan. He verbalized complete understanding and agreement. He is ready to go home. 1256: Ordered Prednisone 40 mg PO. Medical Decision Differential diagnosis: Etiologies such as infections, reactive airway disease, pneumonia, pneumothorax , COPD, CHF, cardiac ischemia, pulmonary embolism, musculoskeletal, gastrointestinal, as well as others were entertained. This is an 86-year-old male who presents emergency department complaining of shortness of breath. I will note that the patient is not hypoxic and does not appear to be in any distress. He is been seen multiple times in the emergency department for this. He does have a history of congestive heart failure therefore I did give chest x-ray however this did not show any evidence of heart failure. He was given an extra dose of Lasix in the emergency department along with a DuoNeb. I do believe that the patient as well as to be discharged home. We will try the patient on prednisone to cease this improves his symptoms. Patient family were in agreement with the treatment plan. Medication Reconcilliation Current Medication List: was personally reviewed by me Blood Pressure Screening Patient's blood pressure: Elevated blood pressure Blood pressure disposition: Referred to PCP Impression Primary Impression: Dyspnea Scribe Attestation The scribe's documentation has been prepared under my direction and personally reviewed by me in its entirety. I confirm that the note above accurately reflects all work, treatment, procedures, and medical decision making performed by me. Departure Information Dispostion Home / Self-Care Prescriptions Prednisone (Prednisone Tab) 20 Mg Tab 0 PO DAILY, #7 TAB 2 TABS DAILY FOR 2 DAYS, THEN 1 TAB DAILY FOR 2 DAYS, THEN 1/2 TAB DAILY FOR 2 DAYS. Prov: Javier Grider MD 10/26/16 Referrals Nikki Peters M.D. (PCP) Forms HOME CARE DOCUMENTATION FORM, IMPORTANT VISIT INFORMATION, School Instructions, Work Instructions Patient Instructions ED Dyspnea Shortness of Breath, My [facility] Additional Instructions You were found to have an elevated blood pressure today (>120 sytolic or >90 diastolic). Per medicare guidelines, you need to follow up with this blood pressure screening with your Primary Care Physician (PCP). For a new PCP call [phone]. You have been examined and treated today on an emergency basis only. This is not a substitute for, or an effort to provide, complete comprehensive medical care. It is impossible to recognize and treat all injuries or illnesses in a single emergency department visit. It is therefore important that you follow up closely with Dr Peters. Call as soon as possible for an appointment. Thank you for your time and consideration. I look forward to speaking with you again soon. Please don't hesitate to call us if you have any questions. Problem Qualifiers Primary Impression: Dyspnea Dyspnea type: unspecified Qualified Codes: R06.00 - Dyspnea, unspecified
[2016-10-26] MEDS ORDERED: ALBUT/IPRATROP 3MG/0.5MG NEB 3 ML VIAL INH ONE (12:00)
[2016-10-26 12:04] LABS: BASO % 0.4 %; BASO ABS # 0.03 K/uL (0-0.2); COMPLETE YES; EOS % 2.8 %; HEMATOCRIT 39.1 % (42-52); IG% 0.3 %; LYMPH % 22.1 %; LYMPH ABS # 1.49 K/uL (1.2-3.4); MEAN CELL VOLUME 92.9 fL (80-100); MEAN CORPUSCULAR HEMOGLOBIN 29.5 pg (25-34); MEAN CORPUSCULAR HGB CONC 31.7 g/dl (32-36); MEAN PLATELET VOLUME 10.2 fL (7.4-10.4); MONO % 13.2 %; NEUT % 61.2 %; PLATELET COUNT 167 K/uL (130-400); RED BLOOD COUNT 4.21 M/uL (4.7-6.1); WHITE BLOOD COUNT 6.73 K/uL (4.8-10.8)
--- NOTE | 2016-10-26 12:13 | DIAGNOSTIC IMAGING REPORT ---
CHEST ONE VIEW PORTABLE CLINICAL HISTORY: 86 years-old Male presenting with sob. TECHNIQUE: Portable upright AP view of the chest was obtained. COMPARISON: 08/07/2016. FINDINGS: Overlying external leads degrade image quality. Atherosclerosis of aortic arch. Cardiac silhouette top normal in size allowing for technique. Mildly low lung volumes with hypoventilatory changes. Elevation of the right hemidiaphragm unchanged. Small right pleural effusion. Degenerative changes of the spine. Upper abdomen normal. IMPRESSION: 1. Mildly low lung volumes with hypoventilatory changes. 2. Small right pleural effusion. Electronically signed by: Del Davis M.D. 10/26/2016 12:11 PM Dictated Date/Time: 10/26/2016 12:10 PM
[2016-10-26 12:18] LABS: INR 1.9 (0.9-1.1); PARTIAL THROMBOPLASTIN RATIO 1.3; PROTHROMBIN TIME (PATIENT) 21.3 SECONDS (9.0-12.0)
[2016-10-26 12:22] LABS: ALT/SGPT 16 U/L (12-78); BLOOD UREA NITROGEN 28 mg/dl (7-18); BUN/CREATININE RATIO 21.8 (10-20); CALCIUM 8.8 mg/dl (8.5-10.1); CARBON DIOXIDE 36 mmol/L (21-32); CHLORIDE 99 mmol/L (98-107); GLUCOSE 95 mg/dl (70-99); POTASSIUM 3.8 mmol/L (3.5-5.1); SODIUM 140 mmol/L (136-145)
[2016-10-26 12:27] LABS: ALB/GLOB RATIO 0.8 (0.9-2); ALKALINE PHOSPHATASE 77 U/L (45-117); AST/SGOT 17 U/L (15-37)
[2016-10-26 12:29] VITALS: PULSE 54; O2SAT 94
[2016-10-26] MEDS ORDERED: LORAZEPAM 2 MG/ML 1 ML VIAL IV STA (12:30)
[2016-10-26] MEDS ORDERED: PRED20TA2 PO (12:59)
[2016-10-26 13:42] VITALS: BP 159/84; PULSE 70; TEMP 36.4; O2SAT 97
== END 2016-10-26 13:44 | disposition home or self-care (01) ==
LOC: C.EDB 11:21 → C.EDC 13:44
DX: R06.00 Dyspnea, unspecified (principal); I71.4 Abdominal aortic aneurysm, without rupture; I25.10 Atherosclerotic heart disease of native coronary artery without angina pectoris; N18.3 Chronic kidney disease, stage 3 (moderate); I50.30 Unspecified diastolic (congestive) heart failure; E78.5 Hyperlipidemia, unspecified; I11.0 Hypertensive heart disease with heart failure; E03.9 Hypothyroidism, unspecified; Z87.01 Personal history of pneumonia (recurrent); Z85.46 Personal history of malignant neoplasm of prostate; Z86.711 Personal history of pulmonary embolism; Z82.49 Family history of ischemic heart disease and other diseases of the circulatory system; Z87.891 Personal history of nicotine dependence; Z79.01 Long term (current) use of anticoagulants; Z79.52 Long term (current) use of systemic steroids; Z79.899 Other long term (current) drug therapy

== ENCOUNTER 2017-02-17 05:21 | Inpatient (IN) | payer OTHER ==
[~2017-02-17] VITALS: Ht 182.9 cm; Wt 94.1 kg
[2017-02-17] VITALS (9 sets, daily range): BP systolic 136–190; BP diastolic 66–96; PULSE 56–78; TEMP 36.4–36.8; O2SAT 90–96; Ht 182.9 cm; Wt 94.1 kg
[~2017-02-17 05:21] MED LIST changes: +PRED20TA2 PO
--- NOTE | 2017-02-17 05:43 | EMERGENCY ROOM VISIT NOTE ---
History First contact with patient: 05:38 Chief Complaint: RESPIRATORY PROBLEMS Stated Complaint: PROBLEMS BREATHING,VOMITING UP BROWN History of Present Illness The patient is a 86 year old male who presents to the Emergency Room for evaluation of shortness of breath. Notes this started earlier in evening and is associated with vomiting. States he vomited multiple times and noted brown emesis. Daren notes that brown/black emesis started after vomiting several times initially with yellow vomiting. Patient denies current symptoms. Denies any cp, abdominal pain, fevers, chills, syncope, headache, nor other symptoms. History of AAA abdominal repair, denies other abdominal surgeries. Notes a "clip" in left lung from previous procedure. Notes history of SHOB episodes but that this episode is "different." Son notes patient lives alone and that patient is "full of infection." Patient is on coumadin. Patient denies recent falls/injuries. Nothing makes symptoms better/worse. No medications prior to arrival. Of note, patient notes awakening this evening feeling like he was "shocked" three times in his chest, but denies chest pain with this. Review of Systems See HPI for pertinent positives & negatives. A total of 10 systems reviewed and were otherwise negative. Past Medical/Surgical History Medical Problems: (1) AAA (abdominal aortic aneurysm) (2) Anxiety (3) CAD (coronary artery disease) (4) CKD (chronic kidney disease) stage 3, GFR 30-59 ml/min (5) Diastolic CHF (6) Dyslipidemia (7) HTN (hypertension) (8) Hypothyroid (9) Left hip pain (10) Lesion of right [place] kidney (11) Pneumonia (12) Prostate cancer (13) Pulmonary embolus Surgical Problems: (1) duodenal ulcer repair (2) H/O prostatectomy (3) H/O right inguinal hernia repair (4) History of AAA (abdominal aortic aneurysm) repair (5) History of appendectomy (6) History of cataract surgery (7) History of endarterectomy Family History Hypertension Social History Smoking Status: Former Smoker Alcohol Use: none Drug Use: none Marital Status: Housing Status: lives alone Occupation Status: retired Current/Historical Medications Scheduled Amoxicillin (Amoxil), 500 MG PO BID Carvedilol (Coreg), 6.25 TAB PO BID Cholecalciferol (Vitamin D3), 1 TAB PO DAILY Furosemide (Lasix), 20 MG PO DAILY Latanoprost (Xalatan 0.005% Oph Irma), 1 DROPS OPL HS Levothyroxine Sodium (Synthroid), 75 MCG PO DAILY Melatonin (Melatonin Maximum Strengt), 1 TAB PO HS Pantoprazole (Protonix), 40 MG PO BID Sennosides-Docusate Sodium ([place]-S), 1 TAB PO HS Sertraline (Zoloft), 50 MG PO DAILY Warfarin Sod (Martoven), 3 MG PO 5XWK Scheduled PRN Nitroglycerin (Nitrostat), 0.4 MG UT UD PRN for Chest Pain Miscellaneous Medications Warfarin Sod (Martoven), 0.5 TAB PO Physical Exam Vital Signs Date Time Temp Pulse Resp B/P (MAP) Pulse Ox O2 Delivery O2 Flow Rate FiO2 02/17/17 06:58 65 15 149/75 94 Room Air 02/17/17 05:51 58 02/17/17 05:27 36.8 63 20 139/78 96 Room Air Physical Exam GENERAL: Patient is elderly appearing and in no acute distress. HEENT: No acute trauma, normocephalic atraumatic, mucous membranes moist, no nasal congestion, no scleral icterus. NECK: No stridor, no adenopathy, no meningismus, trachea is midline. LUNGS: Mild junky, non-productive cough. No dyspnea. Clear to auscultation and equal bilaterally. No wheeze, no rhonchi. HEART: Regular rate and rhythm. No murmurs, rubs, gallops appreciated. ABDOMEN: Soft, nontender, bowel sounds positive, no masses appreciated, no peritonitis. BACK: No midline tenderness, no CVA tenderness RECTAL: Mild glutteal skin break down. No TTP. No fluctance. Brown, heme negative stool EXTREMITIES: Normal motion all extremities, no cyanosis, mild bilateral leg edema. NEUROLOGIC: Alert and oriented, no acute motor or sensory deficits, no focal weakness, cranial nerves grossly intact. SKIN: No rash, no jaundice, no diaphoresis. Medical Decision & Procedures ER Provider Diagnostic Interpretation: Chest Xray: 1 View Portable: Interpretation by me: Good airation with small right pleural effusion similar to previous. Chronic lung disease without acute infiltrate appreciated. Fluid right mid fissure unchanged. Improved from previous cxr 10/2016. Laboratory Results 02/17/17 05:40 Red Blood Count 4.03, Mean Corpuscular Volume 92.8, Mean Corpuscular Hemoglobin 30.3, Mean Corpuscular Hemoglobin Concent 32.6, Mean Platelet Volume 9.9, Neutrophils (%) (Auto) 55.9, Lymphocytes (%) (Auto) 23.5, Monocytes (%) (Auto) 14.7, Eosinophils (%) (Auto) 5.1, Basophils (%) (Auto) 0.4, Neutrophils # (Auto ) 3.19, Lymphocytes # (Auto) 1.34, Monocytes # (Auto) 0.84, Eosinophils # (Auto ) 0.29, Basophils # (Auto) 0.02 02/17/17 05:40 Test 02/17/17 05:40 White Blood Count 5.70 K/uL (4.8-10.8) Red Blood Count 4.03 M/uL (4.7-6.1) Hemoglobin 12.2 g/dL (14.0-18.0) Hematocrit 37.4 % (42-52) Mean Corpuscular Volume 92.8 fL (80-100) Mean Corpuscular Hemoglobin 30.3 pg (25-34) Mean Corpuscular Hemoglobin Concent 32.6 g/dl (32-36) Platelet Count 162 K/uL (130-400) Mean Platelet Volume 9.9 fL (7.4-10.4) Neutrophils (%) (Auto) 55.9 % Lymphocytes (%) (Auto) 23.5 % Monocytes (%) (Auto) 14.7 % Eosinophils (%) (Auto) 5.1 % Basophils (%) (Auto) 0.4 % Neutrophils # (Auto) 3.19 K/uL (1.4-6.5) Lymphocytes # (Auto) 1.34 K/uL (1.2-3.4) Monocytes # (Auto) 0.84 K/uL (0.11-0.59) Eosinophils # (Auto) 0.29 K/uL (0-0.5) Basophils # (Auto) 0.02 K/uL (0-0.2) RDW Standard Deviation 46.5 fL (36.4-46.3) RDW Coefficient of Variation 13.8 % (11.5-14.5) Immature Granulocyte % (Auto) 0.4 % Immature Granulocyte # (Auto) 0.02 K/uL (0.00-0.02) Prothrombin Time 21.5 SECONDS (9.0-12.0) Prothromb Time International Ratio 2.1 (0.9-1.1) Activated Partial Thromboplast Time 34.8 SECONDS (21.0-31.0) Partial Thromboplastin Ratio 1.3 Anion Gap 2.0 mmol/L (3-11) Estimated GFR () 51.6 Estimated GFR (Non- 44.5 BUN/Creatinine Ratio 31.9 (10-20) Calcium Level 8.8 mg/dl (8.5-10.1) Total Bilirubin 0.2 mg/dl (0.2-1) Direct Bilirubin < 0.1 mg/dl (0-0.2) Aspartate Amino Transf (AST/SGOT) 16 U/L (15-37) Alanine Aminotransferase (ALT/SGPT) 17 U/L (12-78) Alkaline Phosphatase 77 U/L (45-117) Total Creatine Kinase 94 U/L (39-308) Creatine Kinase MB 3.0 ng/ml (0.5-3.6) Creatine Kinase MB Ratio 3.2 (0-3.0) Troponin I < 0.015 ng/ml (0-0.045) Pro-B-Type Natriuretic Peptide 159 pg/ml (0-1800) Total Protein 7.4 gm/dl (6.4-8.2) Albumin 3.4 gm/dl (3.4-5.0) Lipase 404 U/L (73-393) Medications Administered Medications (Trade) Dose Ordered Sig/Amilcar Route Start Time Stop Time Status Last Admin Dose Admin Pantoprazole Sodium 40 mg/ Syringe 10 ml @ 5 mls/min NOW ONCE IV 02/17/17 06:30 02/17/17 06:31 DC 02/17/17 06:56 5 MLS/MIN ECG Indication: SOB/dyspnea Rate (beats per minute): 56 Rhythm: sinus bradycardia Findings: LBBB, no acute ischemic change, other (PACs) Medical Decision Differential: Infectious, Reactive Airway Disease, Pneumonia, Pneumothorax, COPD , CHF, ACS, Pulmonary Embolism, MSK, GI, Dissection, amongst other etiologies entertained. 86 yr old male with several visits over last 2 years for SHOB without clear cause other then anxiety, however son notes that over last few days different symptoms. This evening with persistent vomiting which turned in to dark brown/ black emesis per son. Patient on Coumadin post previous vascular surgery (AAA repair). He has unremarkable exam with brown, heme negative stool, however as he just started vomiting brown/black tough to confirm he isn't vomiting blood. On top of this chart documents previous ulcer for which per chart he is on Protonix BID. Unlike previous visits he is not anxious while here. CXR without acute findings. Vitals stable. HgB at baseline. BUN is elevated and he isn't significantly dehydrated by exam, leading towards this possibly being GI Bleed. Given age, Coumadin use, vomiting brown/black, and history of ulcer I feel that he may need further monitoring and thus have consulted hospitalist for further evaluation of patient. Will go ahead and given single dose IV Protonix for anti-acid treatment. No clear evidence of pneumonia nor chf by exam/cxr. Will hold on Vit K given he is stable and it is not completely clear he is actually bleeding at this time. As for SHOB, with unremarkable exam, stable cxr, and no current symptoms I do not feel he requires nebs, abx nor steroids at this time. Abdominal exam is benign and soft without further vomiting thus will hold on imaging. Suspect mild bump Lipase may be vomiting related. Will defer imaging to hospitalist team. Of note... patient adamantly demanding sip of water despite fact that I would prefer him to be NPO given history. He is becoming quite upset/irate and thus to alleviate his anxiety he was given water with vast improvement in his mood. Head Trauma GCS Score: 15 Medication Reconcilliation Current Medication List: was personally reviewed by me Blood Pressure Screening Patient's blood pressure: Elevated blood pressure Blood pressure disposition: Elevated BP felt to be situational Impression Primary Impression: Vomiting blood Additional Impression: Shortness of breath Departure Information Referrals Nikki Peters M.D. (PCP) Patient Instructions My [facility] Problem Qualifiers
[2017-02-17] MEDS ORDERED: SERT-234 PO (05:57)
[2017-02-17] MEDS ORDERED: PANT40TA PO (05:57)
[2017-02-17] MEDS ORDERED: AMOX500C3 PO (05:57)
[2017-02-17 06:00] LABS: BASO % 0.4 %; BASO ABS # 0.02 K/uL (0-0.2); COMPLETE YES; EOS % 5.1 %; HEMATOCRIT 37.4 % (42-52); IG% 0.4 %; LYMPH % 23.5 %; LYMPH ABS # 1.34 K/uL (1.2-3.4); MEAN CELL VOLUME 92.8 fL (80-100); MEAN CORPUSCULAR HEMOGLOBIN 30.3 pg (25-34); MEAN CORPUSCULAR HGB CONC 32.6 g/dl (32-36); MEAN PLATELET VOLUME 9.9 fL (7.4-10.4); MONO % 14.7 %; NEUT % 55.9 %; PLATELET COUNT 162 K/uL (130-400); RED BLOOD COUNT 4.03 M/uL (4.7-6.1)
[2017-02-17 06:17] LABS: ALT/SGPT 17 U/L (12-78); AST/SGOT 16 U/L (15-37); BLOOD UREA NITROGEN 45 mg/dl (7-18); BUN/CREATININE RATIO 31.9 (10-20); CALCIUM 8.8 mg/dl (8.5-10.1); CARBON DIOXIDE 33 mmol/L (21-32); CHLORIDE 101 mmol/L (98-107); GLUCOSE 94 mg/dl (70-99); POTASSIUM 4.2 mmol/L (3.5-5.1); SODIUM 136 mmol/L (136-145)
[2017-02-17 06:23] LABS: ALKALINE PHOSPHATASE 77 U/L (45-117); CKMB/CK RATIO 3.2 (0-3.0)
[2017-02-17] MEDS ORDERED: PANTOprazole INJ 40 MG in SYRINGE 0 ML IV ONE (06:30)
[2017-02-17 06:34] LABS: INR 2.1 (0.9-1.1); PARTIAL THROMBOPLASTIN RATIO 1.3; PROTHROMBIN TIME (PATIENT) 21.5 SECONDS (9.0-12.0)
--- NOTE | 2017-02-17 06:40 | DIAGNOSTIC IMAGING REPORT ---
CHEST ONE VIEW PORTABLE CLINICAL HISTORY: Shortness of breath COMPARISON STUDY: 10/26/2016 FINDINGS: The heart is borderline enlarged. There is mild elevation of the right hemidiaphragm. There is mild chronic interstitial thickening. There is no lobar consolidation. There is no overt failure. There are no pleural effusions.[ IMPRESSION: Mild elevation of the right hemidiaphragm. Stable mild interstitial thickening. No acute findings. Electronically signed by: Elton Cheema M.D. 02/17/2017 6:39 AM Dictated Date/Time: 02/17/2017 6:38 AM
[2017-02-17] MEDS ORDERED: ONDANSETRON INJ 2 MG/ML 2 ML VIAL IV PRN (09:00)
[2017-02-17] MEDS ORDERED: POLYETHYLENE (MIRALAX) 17 GM PACK PO PRN (09:00)
[2017-02-17] MEDS ORDERED: ACETAMINOPHEN 325 MG TAB PO PRN (09:00)
[2017-02-17 09:13] LABS: MAGNESIUM 2.7 mg/dl (1.8-2.4)
[2017-02-17] MEDS ORDERED: BACLOFEN 10 MG TAB PO ONE (09:15)
--- NOTE | 2017-02-17 09:29 | DIAGNOSTIC IMAGING REPORT ---
ULTRASOUND VENOUS DOPPLER LWR EXT BILA CLINICAL HISTORY: Bilateral leg pain and spasms COMPARISON STUDY: 03/27/2016 FINDINGS: Real-time and color flow Doppler imaging were performed. Flow was seen within the femoral, popliteal and calf veins with no intraluminal thrombus demonstrated. The saphenous vein is patent. IMPRESSION: No evidence of lower extremity DVT. Electronically signed by: Elton Cheema M.D. 02/17/2017 9:27 AM Dictated Date/Time: 02/17/2017 9:27 AM
[2017-02-17] MEDS ORDERED: D5W AND 1/2NSS 1,000 ML IV SCH (10:45)
[2017-02-17] MEDS ORDERED: GABAPENTIN 600 MG TAB PO STA (12:02)
[2017-02-17 12:42] LABS: BASO % 0.5 %; BASO ABS # 0.03 K/uL (0-0.2); COMPLETE YES; EOS % 4.3 %; HEMATOCRIT 36.6 % (42-52); IG% 0.2 %; LYMPH % 25.5 %; LYMPH ABS # 1.61 K/uL (1.2-3.4); MEAN CORPUSCULAR HEMOGLOBIN 30.2 pg (25-34); MEAN CORPUSCULAR HGB CONC 32.8 g/dl (32-36); MEAN PLATELET VOLUME 10.1 fL (7.4-10.4); MONO % 15.2 %; NEUT % 54.3 %; PLATELET COUNT 152 K/uL (130-400); RED BLOOD COUNT 3.98 M/uL (4.7-6.1); WHITE BLOOD COUNT 6.31 K/uL (4.8-10.8)
[2017-02-17] MEDS ORDERED: VNTHFA/IN INH (12:46)
[2017-02-17] MEDS ORDERED: NITROGLYCERIN 0.4 MG SL PER TAB CHARGE UT PRN (13:00)
[2017-02-17 13:03] LABS: BUN/CREATININE RATIO 31.4 (10-20); CALCIUM 8.8 mg/dl (8.5-10.1); CREATININE 1.17 mg/dl (0.60-1.40); POTASSIUM 3.9 mmol/L (3.5-5.1)
[2017-02-17 13:06] LABS: ALB/GLOB RATIO 0.9 (0.9-2)
[2017-02-17] MEDS ORDERED: BACLOFEN 10 MG TAB PO SCH (14:00)
--- NOTE | 2017-02-17 14:18 | DIAGNOSTIC IMAGING REPORT ---
L-SPINE MIN 4 VIEWS ROUTINE CLINICAL HISTORY: Bilateral leg pain and spasms COMPARISON STUDY: No previous studies for comparison. FINDINGS: There are bilateral aortoiliac endograft. There are multilevel degenerative changes present within the spine. There are no acute fractures. No destructive lesions are visualized. There is posterior osteophytic spurring at the L4-5 level, and spinal stenosis most be considered. IMPRESSION: 1. No acute fractures 2. Multilevel degenerative changes. Underlying lower lumbar spinal stenosis is suspected. Electronically signed by: Elton Cheema M.D. 02/17/2017 2:16 PM Dictated Date/Time: 02/17/2017 2:14 PM
[2017-02-17] MEDS: ALBUTEROL HFA 8 GM INHALER INH SCH ×3 (14:26→20:58)
[2017-02-17] MEDS: AMOXICILLIN 500 MG CAP PO SCH ×2 (14:27→20:59)
--- NOTE | 2017-02-17 14:33 | History and Physical ---
History & Physical Date & Time of Service: Feb 17, 2017 at 12:50 Chief Complaint: Nausea & Vomiting, Twitching Primary Care Physician: Nikki Peters M.D. History of Present Illness Source: patient, family Pt is 86 y/o M with PMH HTN, dementia, abdominal aneurysm and repair, carotid stenosis, interstitial lung disease, prostate CA, presented to ER with c/o nausea, vomiting. History is hard to obtain as pt hx dementia. Son states this morning pt c/o nausea and he noticed had vomit in bucket that looked brown in color this am. Denies any further vomiting since and denies vomiting yesterday. Son reports pt has chronic cough and is spitting into a cup "continuously" throughout the day for approx 15 years. Denies any worsening or changes with this. Also states pt will have intermittent vomiting after eating, thinks occurs once to a couple of times a month. Pt denies constipation or diarrhea or noted melena or hematochezia. Denies abdominal pain. Pt also c/o uncontrolled twitching of his bilateral lower extremities. Son states that just started upon arrival to ER and he hasn't noticed that before. Denies pain to back, hips, legs , neck. Hx R trochanteric bursitis in past requiring injections. Denies any current or recent hip pain. Denies recent injury or falls or hitting head. Son reports he has noticed pt's dementia has been worsening. He reports hx UTI with urinary frequency dx02/07/17, was initially rx Cipro and then switched to amoxicillin on 02/12/17 for 10 day course. Pt denies further urinary frequency and denies hematuria. Pt lives alone at home. Son states that he and his sister stop by house at least 3 times a day to check on pt and sister provides dinner for pt. Reports he ate steak and potatoes last night, nothing to eat today. Denies fever/chills, diaphoresis,GONZALEZ, dizziness, syncope, vision changes, neck pain, CP, SOB, orthopnea, palpitations, hemoptysis, choking, abdominal pain, paresthesias, weakness, extremity weakness, worsening extremity edema, rashes. In ER pt given protonix. Afebrile, BP: 139/78. H/H stable at baseline. Cr: 1.4 ( baseline). INR: 2.1 Past Medical/Surgical History Medical Problems: (1) AAA (abdominal aortic aneurysm) Permanent Comment: 5.1 cm s/p AAA repair 08/08/2011 Status: Resolved (2) Anxiety Status: Chronic (3) CAD (coronary artery disease) Permanent Comment: suspected, hx of abnormal stress, patient declined cardiac cath Status: Chronic (4) CKD (chronic kidney disease) stage 3, GFR 30-59 ml/min Status: Chronic (5) Diastolic CHF Permanent Comment: echo 03/2015 - EF 60-65%, grade II diastolic dysfunction Status: Chronic (6) Dyslipidemia Status: Chronic (7) HTN (hypertension) Status: Chronic (8) Hypothyroid Status: Chronic (9) Prostate cancer Status: Chronic Surgical Problems: (1) duodenal ulcer repair Status: Chronic (2) H/O prostatectomy Status: Chronic (3) H/O right inguinal hernia repair Status: Chronic (4) History of AAA (abdominal aortic aneurysm) repair Permanent Comment: 08/08/2011 Status: Resolved (5) History of appendectomy Status: Resolved (6) History of cataract surgery Status: Chronic (7) History of endarterectomy Permanent Comment: L endarterectomy 10/09/[address] Jacobs; carotid US 2014 shows 50-69% stenosis of RAFAT Status: Chronic Family History Hypertension Social History Smoking Status: Former Smoker (smoked 0.5 ppd x 1 year. Quit 1952) Smokeless Tobacco Use: No Alcohol Use: none Drug Use: none Occupational Status: retired Immunizations History of Influenza Vaccine: Yes Influenza Vaccine Date: Nov 16, 2015 History of Tetanus Vaccine?: Yes Tetanus Immunization Date: Mar 03, 2005 History of Pneumococcal: Yes Pneumococcal Date: Aug 15, 2014 Multi-Drug Resistant Organisms History of MDRO: Yes Type of MDRO: MRSA Allergies Coded Allergies: No Known Allergies (Unverified , 02/17/17) Home Medications Scheduled Albuterol Hfa (Ventolin Hfa), 2 PUFFS INH Q4H Amoxicillin (Amoxil), 500 MG PO BID Carvedilol (Coreg), 6.25 TAB PO BID Cholecalciferol (Vitamin D3), 1 TAB PO DAILY Furosemide (Lasix), 20 MG PO DAILY Latanoprost (Xalatan 0.005% Oph Irma), 1 DROPS OPL HS Pantoprazole (Protonix), 40 MG PO BID Sennosides-Docusate Sodium (Senexon-S), 1 TAB PO HS Sertraline (Zoloft), 50 MG PO DAILY Warfarin Sod (Jantoven), 3 MG PO 5XWK Scheduled PRN Nitroglycerin (Nitrostat), 0.4 MG UT UD PRN for Chest Pain Miscellaneous Medications Warfarin Sod (Jantoven), 0.5 TAB PO Review of Systems See HPI, further ROS difficult to obtain secondary to dementia Physical Exam Vital Signs Date Time Temp Pulse Resp B/P (MAP) Pulse Ox O2 Delivery O2 Flow Rate FiO2 02/17/17 10:33 36.6 78 18 173/83 94 Room Air 02/17/17 09:48 83 20 163/75 96 02/17/17 09:40 83 20 163/75 96 Room Air 02/17/17 09:03 70 02/17/17 08:44 74 22 160/85 95 Room Air 02/17/17 06:58 65 15 149/75 94 Room Air 02/17/17 05:51 58 02/17/17 05:27 36.8 63 20 139/78 96 Room Air General Appearance: WD/WN, no apparent distress Head: normocephalic, atraumatic Eyes: normal inspection, EOMI, sclerae normal ENT: pharynx normal, + pertinent finding (hard of hearing, mildly dry mucous membranes) Neck: supple, no JVD, trachea midline Respiratory/Chest: chest non-tender, lungs clear, normal breath sounds, no respiratory distress, no accessory muscle use, + pertinent finding Cardiovascular: regular rate, rhythm, normal peripheral pulses Abdomen/GI: normal bowel sounds, non tender, soft Back: no CVA tenderness, + pertinent finding (non-tender to palpation, able to sit up easily and rotate torso without difficulty or discomfort) Extremities/Musculoskelatal: normal capillary refill, + pedal edema (1+ bilaterally, legs and arms non-tender to palpation. ROM intact without tenderness. Random spasms/twitching of bilateral legs noted and pt winces when this occurs, but denies pain when this occurs.) Neurologic/Psych: alert (pleasant, oriented to person and month/year) Skin: warm/dry (+dry patches noted to bilateral legs) Diagnostics Laboratory Results Results Past 24 Hours Test 02/17/17 05:40 02/17/17 12:30 Range/Units White Blood Count 5.70 6.31 4.8-10.8 K/uL Red Blood Count 4.03 3.98 4.7-6.1 M/uL Hemoglobin 12.2 12.0 14.0-18.0 g/dL Hematocrit 37.4 36.6 42-52 % Mean Corpuscular Volume 92.8 92.0 80-100 fL Mean Corpuscular Hemoglobin 30.3 30.2 25-34 pg Mean Corpuscular Hemoglobin Concent 32.6 32.8 32-36 g/dl Platelet Count 162 152 130-400 K/uL Mean Platelet Volume 9.9 10.1 7.4-10.4 fL Neutrophils (%) (Auto) 55.9 54.3 % Lymphocytes (%) (Auto) 23.5 25.5 % Monocytes (%) (Auto) 14.7 15.2 % Eosinophils (%) (Auto) 5.1 4.3 % Basophils (%) (Auto) 0.4 0.5 % Neutrophils # (Auto) 3.19 3.43 1.4-6.5 K/uL Lymphocytes # (Auto) 1.34 1.61 1.2-3.4 K/uL Monocytes # (Auto) 0.84 0.96 0.11-0.59 K/uL Eosinophils # (Auto) 0.29 0.27 0-0.5 K/uL Basophils # (Auto) 0.02 0.03 0-0.2 K/uL RDW Standard Deviation 46.5 45.4 36.4-46.3 fL RDW Coefficient of Variation 13.8 13.5 11.5-14.5 % Immature Granulocyte % (Auto) 0.4 0.2 % Immature Granulocyte # (Auto) 0.02 0.01 0.00-0.02 K/uL Prothrombin Time 21.5 9.0-12.0 SECONDS Prothromb Time International Ratio 2.1 0.9-1.1 Activated Partial Thromboplast Time 34.8 21.0-31.0 SECONDS Partial Thromboplastin Ratio 1.3 Sodium Level 136 136-145 mmol/L Potassium Level 4.2 3.5-5.1 mmol/L Chloride Level 101 98-107 mmol/L Carbon Dioxide Level 33 21-32 mmol/L Anion Gap 2.0 3-11 mmol/L Blood Urea Nitrogen 45 7-18 mg/dl Creatinine 1.40 0.60-1.40 mg/dl Estimated GFR () 51.6 Estimated GFR (Non- 44.5 BUN/Creatinine Ratio 31.9 10-20 Random Glucose 94 70-99 mg/dl Calcium Level 8.8 8.5-10.1 mg/dl Magnesium Level 2.7 1.8-2.4 mg/dl Total Bilirubin 0.2 0.2-1 mg/dl Direct Bilirubin < 0.1 0-0.2 mg/dl Aspartate Amino Transf (AST/SGOT) 16 15-37 U/L Alanine Aminotransferase (ALT/SGPT) 17 12-78 U/L Alkaline Phosphatase 77 45-117 U/L Total Creatine Kinase 94 39-308 U/L Creatine Kinase MB 3.0 0.5-3.6 ng/ml Creatine Kinase MB Ratio 3.2 0-3.0 Troponin I < 0.015 0-0.045 ng/ml Pro-B-Type Natriuretic Peptide 159 0-1800 pg/ml Total Protein 7.4 6.4-8.2 gm/dl Albumin 3.4 3.4-5.0 gm/dl Amylase Level 125 25-115 U/L Lipase 404 73-393 U/L Ionized Calcium 1.15 1.12-1.32 mmol/l Diagnostic Radiology CXR: IMPRESSION: Mild elevation of the right hemidiaphragm. Stable mild interstitial thickening. No acute findings. U/S DOPPLER LE: IMPRESSION: No evidence of lower extremity DVT. EKG EKG: sinus celina, rate 56, incomplete LBBB EKG read by billiard parlor manager: Sinus bradycardia with Premature atrial complexes Incomplete left bundle block Minimal voltage criteria for LVH, may be normal variant Borderline ECG When compared with ECG of 26-OCT-2016 11:44, No significant change was found Confirmed by ABHAY STONE ([id number]) on 02/17/2017 11:59:21 AM Impression Assessment and Plan NAUSEA/VOMITING Pt with onset nausea and vomiting x 1 this am. Denies abdominal pain, CP. Question if hematemesis. Hgb: 12 (baseline). Cr: 1.4 (baseline). Lipase 404. negative troponin. Pt denies current nausea and no vomiting since this am. Does not appear to be pancreatitis at this time, will continue to monitor. DDX: gastritis, gastroenteritis, GI bleed -Continue to monitor to r/o GI bleed -hold on abdominal imaging at this time, consider if no improvement or worsening -U/A added -will continue amoxicillin pt on for UTI -fecal occult -added amylase -added lactic acid -zofran prn -repeat cbc in 6 hrs to recheck H/H for signs GI bleeding -protonix IV -IVF -repeat cbc, cmp, lipase in am TWITCHING Pt with twitching/spasm like symptoms of bilateral lower legs. ?onset today. Denies back pain or leg pain or injury, GONZALEZ -CPK in 6 hrs -LE venous doppler to r/o DVT -Xray thoracic, lumbar spine to r/o fracture/compression -added magnesium and ionized calcium to further r/o electrolyte abnormalities -repeat cmp -neuro consult, appreciate input CHRONIC COUMADIN THERAPY pt on coumadin hx PE. INR 2.1 today. Negative heme occult stool now -continue to monitor -continue coumadin currently, if signs of bleeding will d/c -repeat INR in am DEMENTIA -pt may have some worsening dementia symptoms -hold home meds at this time DEPRESSION -hold home meds at this time HTN BP stable -hold lasix and carvedilol today and continue to monitor BP UTI Pt treated out pt for UTI. On amoxicillin x 10 days, started on 02/12/17. -continue amoxicillin -repeat u/a INTERSTITIAL LUNG DISEASE No SOB/wheezing or CP -continue to monitor -albuterol prn DVT PROPHYLAXIS -coumadin DISPOSITION -admit tele -DNR as per discussion with pt and son -Follows with Dr Peters for routine care Pt was seen with Dr Duke. See addendum Attending physician, Dr. Duke, addendum: I have seen and assessed the patient with ERIN Machado and agree with the assessment and plan as above and would like to comment the patient is admitted on telemetry primarily for concern of hematemesis at home. As per patient's family member, the patient vomited brown liquid. Patient is also therapeutic level of coumadin for pulmonary embolism history. However, there has been no further observed episodes and in the ED, warfarin reversal was considered but not given since symptoms appeared to have resolved. Repeat CBC stable and so coumadin continued On labs there are somewhat elevated levels of amylase and lipase but no clinical signs of pain for abdominal etiology on physical exam nor do patient complain of abdominal pain. Patient's main complaint to hospitalist medical team is discomfort of lower extremities and patient is unclear whether is having pain or spasms. There is no pain elicited on palpation of lower extremities. Baclofen and gabapentin ordered in the emergency room. There are no electrolyte abnormalities. There is no lower extremity DVT on ultrasound. X ray imaging of thoracic and lower back showed multi disc level disease but no acute pathology and consultation by neurology also did not lead to diagnosis of acute neurological diagnosis. Neurology product management consultant physician have asked the baclofen be stopped to avoid risk of delirium and that gabapentin can be given in reduced doses. Neurology product management consultant also ordered blood work to investigate if leg problem is due to restless leg syndrome Level of Care Telemetry Advanced Directives Existing Living Will: Yes Existing Power of Coin Machine Supervisor: Yes Resuscitation Status DO NOT RESUSCITATE VTE Prophylaxis VTE Risk Assessment Done? Y/N: Yes Risk Level: Moderate Given or contraindicated: Warfarin (Coumadin) Additional Copies To Nikki Peters M.D.
--- NOTE | 2017-02-17 14:35 | DIAGNOSTIC IMAGING REPORT ---
THORACIC SPINE 3 VIEWS ROUTINE HISTORY: 86 years-old Male leg spasms, rule out nerve impingement or spine fracture acute leg spasms COMPARISON: Lumbar spine radiographs of same day TECHNIQUE: 3 views of the thoracic spine FINDINGS: No acute fracture or subluxation identified. The bones appear mildly demineralized. Multilevel intervertebral disc space narrowing, facet arthrosis and endplate spurring. Multilevel degenerative changes of the imaged cervical spine also noted. Atherosclerosis of the aorta. The heart appears enlarged. IMPRESSION: 1. No acute fracture or subluxation. 2. Multilevel intervertebral disc space narrowing, spondylosis and facet arthropathy. The above report was generated using voice recognition software. It may contain grammatical, syntax or spelling errors. Electronically signed by: Blaine Delgado M.D. 02/17/2017 2:34 PM Dictated Date/Time: 02/17/2017 2:33 PM
[2017-02-17 14:45] LABS: MANUAL MICROSCOPIC REQUIRED? NO; REVIEW REQ? NO; URINE APPEARANCE CLEAR (CLEAR); URINE BILIRUBIN NEG (NEG); URINE COLOR YELLOW; URINE NITRITE NEG (NEG); URINE PH 7.5 (4.5-7.5); URINE SPECIFIC GRAVITY 1.014 (1.000-1.030); UROBILINOGEN NEG (NEG); ZZUR CULT IF INDIC CLEAN CATCH NO
[2017-02-17] MEDS ORDERED: WARFARIN SOD 0.5 MG TAB PO SCH (16:00)
[2017-02-17 18:28] LABS: FERRITIN 41.1 ng/ml (8.0-388.0); THYROID STIMULATING HORMONE 0.836 uIu/ml (0.300-4.500)
[2017-02-17] MEDS: PANTOprazole INJ 40 MG in SYRINGE 0 ML IV SCH (18:32)
--- NOTE | 2017-02-17 18:45 | INFECT DISEASE PROGRESS NOTE ---
DATE: 02/17/2017 REASON FOR CONSULTATION: Abnormal leg movements. HISTORY OF PRESENT ILLNESS: The patient is an 86-year-old presumed right-handed male with a history of dementia, hypertension, abdominal aortic aneurysm repair, carotid stenosis, interstitial lung disease; by the chart report prostate cancer, although patient denies that, presented to the ER with nausea and vomiting. The patient indicates that he has uncontrolled twitching of the legs of unclear duration, perhaps as short as 1 week. By his son's report, he had not noticed it previously. The patient indicates that he has pain from the knee down. No numbness, tingling or burning. There is no leilani weakness. There is no significant spine pain. He has some chronic urinary incontinence since prostate surgery. The patient denies that there are any new medications or change in dose. It is he was somewhat inconsistent, but it may be that the sensation in the leg is somewhat better with standing. His weight has been stable. PAST MEDICAL HISTORY: Ns notable for abdominal aortic aneurysm, anxiety, coronary artery disease, chronic kidney disease, congestive heart failure, dyslipidemia, hypertension, hypothyroidism; by the chart's report prostate cancer, although the patient denies that. PAST SURGICAL HISTORY: Duodenal ulcer repair, prostatectomy, right inguinal hernia, abdominal aortic aneurysm repair, appendectomy, cataract surgery, left carotid endarterectomy. FAMILY HISTORY: Hypertension. The patient stopped smoking in 3. Does not drink alcohol. He lives alone in his own home. His who has colon cancer lives with his son. ALLERGIES: No allergies. MEDICATIONS: On admission were Ventolin, amoxicillin, Coreg, vitamin D3, Lasix, Xalatan, Protonix, tamoxifen, Zoloft, Flovent and p.r.n. nitroglycerin. LABORATORY AND IMAGING DATA: Chest x-ray showed stable mild interstitial thickening, mild elevation of the right hemidiaphragm. Venous Doppler of the lower extremities showed no evidence of DVT. Thoracic spine x-ray - no acute fracture, multiple level disk space narrowing, spondylosis and facet arthropathy. CT of the lumbar spine x-ray shows no acute fractures, multilevel degenerative changes with underlying lower lumbar spinal stenosis ____ White count on admission 5.7, H&H 12.2/37, platelet count 162. INR 2.1. Chemistry notable for sodium of 136, potassium 3.9, BUN and creatinine 37/1.1, glucose 110. Transaminases normal. CK 77, CK-MB 3.0. Troponin negative. Lipase 404, amylase 125, magnesium 2.7. CURRENT MEDICINES: Coumadin, gabapentin 600 b.i.d., pantoprazole, warfarin, baclofen 10 b.i.d., albuterol, amoxicillin, nitroglycerin, dextrose, Tylenol, MiraLax and Zofran p.r.n. PHYSICAL EXAMINATION: GENERAL: The patient is a well-developed male in no distress. He is oriented to person and place, month and year. No right/left confusion and no aphasia. NECK: There are no carotid bruits. HEART: No heart murmurs. Heart is regular rate and rhythm. ABDOMEN: Soft and nontender. LOWER EXTREMITIES: There is mild pretibial edema. No fasciculations are noted in the upper or lower extremities. There is mild atrophy of the tibialis anterior. Posterior tibial pulses are intact bilaterally. Motor: There is normal bulk and tone. There is full strength with the uppers and lowers. His reflexes are present at the knees, absent at the ankles, toes are downgoing. There is no clonus. Vibration sense is present at the knees. Temperature present at the knees. Light touch is symmetric bilaterally. No upper extremity sensory loss is noted. [id number] and [id number]-sd-[id number] are normal. Gait was not tested. I noted a brief random jerk of one foot. No myoclonus was noted. IMPRESSION: The patient has a history of discomfort and movement in the legs He has signs of peripheral neuropathy on his exam and I wonder if he also has some restless legs. He does not admit to any neuropathic pain. PLAN: I agree with treating with gabapentin. In an effort to avoid delirium/sedation, I would likely reduce the dose to 300 b.i.d. or 300 t.i.d., again monitoring closely with the patient. He probably does not need baclofen and at this point, I do not see any upper motor neuron signs. We will order some labs for treatable etiology with neuropathy and he has no obvious risk. 2. Will check a ferritin. 3. Restless legs can be due to renal insufficiency, although his degree of renal insufficiency is minor. We will follow with you. MTDD
[2017-02-17] MEDS ORDERED: CARV6.252 PO (19:17)
[2017-02-17] MEDS ORDERED: GABAPENTIN 600 MG TAB PO SCH (21:00)
[2017-02-17] MEDS: GABAPENTIN 300 MG CAP PO SCH (21:02)
[2017-02-17] MEDS: CARVEDILOL 6.25 MG TAB PO SCH (21:02)
[2017-02-18] VITALS (9 sets, daily range): BP systolic 120–168; BP diastolic 59–81; PULSE 54–83; TEMP 36.2–36.6; O2SAT 90–96
[2017-02-18] MEDS: ALBUTEROL HFA 8 GM INHALER INH SCH ×6 (02:26→21:05)
[2017-02-18] MEDS: PANTOprazole INJ 40 MG in SYRINGE 0 ML IV SCH ×2 (06:01→18:19)
[2017-02-18 06:48] LABS: ESTIMATED AVERAGE GLUCOSE 126 mg/dl; HA1C FLAG Normal (Normal)
[2017-02-18 07:36] LABS: BASO % 0.7 %; BASO ABS # 0.04 K/uL (0-0.2); COMPLETE YES; EOS % 4.6 %; HEMATOCRIT 39.3 % (42-52); IG% 0.4 %; LYMPH ABS # 1.12 K/uL (1.2-3.4); MEAN CELL VOLUME 92.7 fL (80-100); MEAN CORPUSCULAR HEMOGLOBIN 30.2 pg (25-34); MEAN CORPUSCULAR HGB CONC 32.6 g/dl (32-36); MEAN PLATELET VOLUME 10.3 fL (7.4-10.4); MONO % 14.4 %; NEUT % 59.9 %; PLATELET COUNT 164 K/uL (130-400); RED BLOOD COUNT 4.24 M/uL (4.7-6.1); WHITE BLOOD COUNT 5.61 K/uL (4.8-10.8)
[2017-02-18 07:42] LABS: INR 2.1 (0.9-1.1); PROTHROMBIN TIME (PATIENT) 22.1 SECONDS (9.0-12.0)
[2017-02-18 08:01] LABS: BUN/CREATININE RATIO 24.5 (10-20); CALCIUM 8.8 mg/dl (8.5-10.1); CREATININE 1.01 mg/dl (0.60-1.40); POTASSIUM 4.1 mmol/L (3.5-5.1)
[2017-02-18 08:04] LABS: ALB/GLOB RATIO 0.8 (0.9-2)
[2017-02-18] MEDS: CARVEDILOL 6.25 MG TAB PO SCH ×2 (08:29→21:00)
[2017-02-18] MEDS: AMOXICILLIN 500 MG CAP PO SCH ×2 (08:29→21:06)
[2017-02-18] MEDS: GABAPENTIN 300 MG CAP PO SCH ×2 (08:29→21:06)
[2017-02-18] MEDS ORDERED: NRN300 PO (11:16)
--- NOTE | 2017-02-18 12:12 | Progress Note ---
Internal Med Progress Note Date of Service: Feb 18, 2017. Provider Documentation: SUBJECTIVE: Patient seen and examined at bedside. Patient is much more calm, coherent, and is pain free today. He is communicating in full sentences. He denies further pain of lower extremities. He denies further episodes of vomiting OBJECTIVE: Exam: General- no acute distress, responsive to questions and physical exam Eyes- EOMI Neck- no JVD Lungs- CTABL, no wheezing Heart- Regular rate Abdomen- soft, nontender, + bowel sounds Extremities- No edema of lower extremities, nontender to palpation Neuro- no spasms ASSESSMENT & PLAN: Patient was admitted on telemetry on 02/17/17 primarily for concern of hematemesis at home (As per patient's family member, the patient vomited brown liquid) Patient was monitored overnight. No further episodes of vomiting while his coumadin levels have remained therapeutic for history if pulmonary embolism in the past. Continues to not have abdominal tenderness or pain on abdominal exam despite somewhat elevated levels of amylase and lipase on admission. Hemoglobin on repeat labs since admission have been stable Based hemodynamic stability and no identifiable source of blood loss, patient can be discharged from the hospital on 02/18/17 Other main concern to hospitalist medical team was discomfort of lower extremities on admission 02/07/17 Patient was unclear whether is having pain or spasms. No pain elicited on palpation of lower extremities. Baclofen and gabapentin ordered in the emergency room. There are no electrolyte abnormalities. There is no lower extremity DVT on ultrasound. X ray imaging of thoracic and lower back showed multi disc level disease but no acute pathology and consultation by neurology also did not lead to diagnosis of acute neurological diagnosis. Neurology home energy consultant supervisor physician have asked the baclofen be stopped to avoid risk of delirium and that gabapentin can be given in reduced doses. Neurology home energy consultant supervisor also ordered blood work to investigate if leg problem is due to restless leg syndrome As of 02/18/17, patient reports that he does not have any pain symptoms of the legs. Will continue gabapentin 300 mg BID as part of discharge medication If case management can assist in arranging hospital discharge, patient can follow up with 02/19/2017 1:20 PM Terry Cruz MD Internal Medicine [facility] Otherwise, if patient stays in the hospital or if he cannot make the appointment on 02/19/17 then the alternative primary care appointment is 02/25/2017 10:00 AM Cornell Gupta MD Internal Medicine [facility] Vital Signs: Date Time Temp Pulse Resp B/P (MAP) Pulse Ox O2 Delivery O2 Flow Rate FiO2 02/18/17 12:15 Room Air 02/18/17 11:14 36.4 60 20 131/75 (93) 92 02/18/17 08:30 Room Air 02/18/17 07:21 36.3 71 20 168/81 (110) 90 02/18/17 04:05 93 Room Air 02/18/17 04:00 36.5 63 20 147/72 (97) 93 Room Air 02/18/17 00:05 93 Room Air 02/17/17 23:00 36.8 56 18 152/75 (100) 90 Room Air 02/17/17 22:03 68 166/87 (113) 02/17/17 21:03 69 190/83 (118) 02/17/17 20:00 93 Room Air 02/17/17 18:50 36.4 67 18 174/96 (122) 92 Room Air 02/17/17 16:00 93 Room Air 02/17/17 15:44 36.4 70 20 136/66 (89) 93 Room Air Lab Results: Results Past 24 Hours Test 02/17/17 12:30 02/17/17 17:39 02/18/17 07:09 Range/Units White Blood Count 6.31 5.61 4.8-10.8 K/uL Red Blood Count 3.98 4.24 4.7-6.1 M/uL Hemoglobin 12.0 12.8 14.0-18.0 g/dL Hematocrit 36.6 39.3 42-52 % Mean Corpuscular Volume 92.0 92.7 80-100 fL Mean Corpuscular Hemoglobin 30.2 30.2 25-34 pg Mean Corpuscular Hemoglobin Concent 32.8 32.6 32-36 g/dl Platelet Count 152 164 130-400 K/uL Mean Platelet Volume 10.1 10.3 7.4-10.4 fL Neutrophils (%) (Auto) 54.3 59.9 % Lymphocytes (%) (Auto) 25.5 20.0 % Monocytes (%) (Auto) 15.2 14.4 % Eosinophils (%) (Auto) 4.3 4.6 % Basophils (%) (Auto) 0.5 0.7 % Neutrophils # (Auto) 3.43 3.36 1.4-6.5 K/uL Lymphocytes # (Auto) 1.61 1.12 1.2-3.4 K/uL Monocytes # (Auto) 0.96 0.81 0.11-0.59 K/uL Eosinophils # (Auto) 0.27 0.26 0-0.5 K/uL Basophils # (Auto) 0.03 0.04 0-0.2 K/uL RDW Standard Deviation 45.4 46.5 36.4-46.3 fL RDW Coefficient of Variation 13.5 13.6 11.5-14.5 % Immature Granulocyte % (Auto) 0.2 0.4 % Immature Granulocyte # (Auto) 0.01 0.02 0.00-0.02 K/uL Sodium Level 136 138 136-145 mmol/L Potassium Level 3.9 4.1 3.5-5.1 mmol/L Chloride Level 102 103 98-107 mmol/L Carbon Dioxide Level 30 30 21-32 mmol/L Anion Gap 4.0 5.0 3-11 mmol/L Blood Urea Nitrogen 37 25 7-18 mg/dl Creatinine 1.17 1.01 0.60-1.40 mg/dl Est Creatinine Clear Calc Drug Dose 52.1 60.1 ml/min Estimated GFR () 64.1 76.6 Estimated GFR (Non- 55.3 66.1 BUN/Creatinine Ratio 31.4 24.5 10-20 Random Glucose 110 100 70-99 mg/dl Lactic Acid Level 0.9 0.4-2.0 mmol/L Calcium Level 8.8 8.8 8.5-10.1 mg/dl Ionized Calcium 1.15 1.12-1.32 mmol/l Total Bilirubin 0.3 0.4 0.2-1 mg/dl Aspartate Amino Transf (AST/SGOT) 18 19 15-37 U/L Alanine Aminotransferase (ALT/SGPT) 17 17 12-78 U/L Alkaline Phosphatase 78 84 45-117 U/L Total Creatine Kinase 92 39-308 U/L Total Protein 7.1 7.3 6.4-8.2 gm/dl Albumin 3.3 3.3 3.4-5.0 gm/dl Globulin 3.8 4.0 2.5-4.0 gm/dl Albumin/Globulin Ratio 0.9 0.8 0.9-2 Estimated Average Glucose 126 mg/dl Hemoglobin A1c 6.0 4.5-5.6 % Ferritin 41.1 8.0-388.0 ng/ml Vitamin B12 Level 483 211-911 pg/mL Folate 7.76 >5.38 ng/mL Thyroid Stimulating Hormone (TSH) 0.836 0.300-4.500 uIu/ml Prothrombin Time 22.1 9.0-12.0 SECONDS Prothromb Time International Ratio 2.1 0.9-1.1 Lipase 251 73-393 U/L
--- NOTE | 2017-02-18 12:29 | Discharge Instructions ---
Discharge Instructions Date of Service Feb 18, 2017. Admission Reason for Admission: Nausea & Vomiting, Twitching Discharge Discharge Diagnosis / Problem: bilateral leg pain, nausea vomiting, stable hemoglobin on coumadin Discharge Goals Goal(s): Decrease discomfort Activity Recommendations Activity Limitations: per Instructions/Follow-up section Shower/Bathe: no limitations Instructions / Follow-Up Instructions / Follow-Up Patient was admitted on telemetry on 02/17/17 primarily for concern of hematemesis at home (As per patient's family member, the patient vomited brown liquid) Patient was monitored overnight. No further episodes of vomiting while his coumadin levels have remained therapeutic for history if pulmonary embolism in the past. Continues to not have abdominal tenderness or pain on abdominal exam despite somewhat elevated levels of amylase and lipase on admission. Hemoglobin on repeat labs since admission have been stable Based hemodynamic stability and no identifiable source of blood loss, patient can be discharged from the hospital on 02/18/17 Other main concern to hospitalist medical team was discomfort of lower extremities on admission 02/07/17 Patient was unclear whether is having pain or spasms. No pain elicited on palpation of lower extremities. Baclofen and gabapentin ordered in the emergency room. There are no electrolyte abnormalities. There is no lower extremity DVT on ultrasound. X ray imaging of thoracic and lower back showed multi disc level disease but no acute pathology and consultation by neurology also did not lead to diagnosis of acute neurological diagnosis. Neurology events solutions consultant physician have asked the baclofen be stopped to avoid risk of delirium and that gabapentin can be given in reduced doses. Neurology events solutions consultant also ordered blood work to investigate if leg problem is due to restless leg syndrome As of 02/18/17, patient reports that he does not have any pain symptoms of the legs. Will continue gabapentin 300 mg BID as part of discharge medication If case management can assist in arranging hospital discharge, patient can follow up with 02/19/2017 1:20 PM Terry Cruz MD Internal Medicine [facility] Otherwise, if patient stays in the hospital or if he cannot make the appointment on 02/19/17 then the alternative primary care appointment is 02/25/2017 10:00 AM Cornell Gupta MD Internal Medicine [facility] Current Hospital Diet Patient's current hospital diet: Regular Diet Discharge Diet Recommended Diet: Regular Diet Pending Studies Studies pending at discharge: no Laboratory Results 02/18/17 07:09 Red Blood Count 4.24, Mean Corpuscular Volume 92.7, Mean Corpuscular Hemoglobin 30.2, Mean Corpuscular Hemoglobin Concent 32.6, Mean Platelet Volume 10.3, Neutrophils (%) (Auto) 59.9, Lymphocytes (%) (Auto) 20.0, Monocytes (%) (Auto) 14.4, Eosinophils (%) (Auto) 4.6, Basophils (%) (Auto) 0.7, Neutrophils # (Auto ) 3.36, Lymphocytes # (Auto) 1.12, Monocytes # (Auto) 0.81, Eosinophils # (Auto ) 0.26, Basophils # (Auto) 0.04 02/18/17 07:09 Test 02/17/17 00:00 02/17/17 05:40 02/17/17 12:30 02/17/17 17:39 Urine Color YELLOW Urine Appearance CLEAR (CLEAR) Urine pH 7.5 (4.5-7.5) Urine Specific [place] 1.014 (1.000-1.030) Urine Protein NEG (NEG) Urine Glucose (UA) NEG (NEG) Urine Ketones NEG (NEG) Urine Occult Blood NEG (NEG) Urine Nitrite NEG (NEG) Urine Bilirubin NEG (NEG) Urine Urobilinogen NEG (NEG) Urine Leukocyte Esterase SMALL (NEG) Urine WBC (Auto) 5-10 /hpf (0-5) Urine RBC (Auto) 0-4 /hpf (0-4) Urine Hyaline Casts (Auto) 0 /lpf (0-5) Urine Epithelial Cells (Auto) 10-20 /lpf (0-5) Urine Bacteria (Auto) NEG (NEG) Activated Partial Thromboplast Time 34.8 SECONDS (21.0-31.0) Partial Thromboplastin Ratio 1.3 Magnesium Level 2.7 mg/dl (1.8-2.4) Direct Bilirubin < 0.1 mg/dl (0-0.2) Creatine Kinase MB 3.0 ng/ml (0.5-3.6) Creatine Kinase MB Ratio 3.2 (0-3.0) Troponin I < 0.015 ng/ml (0-0.045) Pro-B-Type Natriuretic Peptide 159 pg/ml (0-1800) Amylase Level 125 U/L (25-115) Lactic Acid Level 0.9 mmol/L (0.4-2.0) Ionized Calcium 1.15 mmol/l (1.12-1.32) Total Creatine Kinase 92 U/L (39-308) Estimated Average Glucose 126 mg/dl Hemoglobin A1c 6.0 % (4.5-5.6) Ferritin 41.1 ng/ml (8.0-388.0) Vitamin B12 Level 483 pg/mL (211-911) Folate 7.76 ng/mL (>5.38) Thyroid Stimulating Hormone (TSH) 0.836 uIu/ml (0.300-4.500) Test 02/18/17 07:09 White Blood Count 5.61 K/uL (4.8-10.8) Red Blood Count 4.24 M/uL (4.7-6.1) Hemoglobin 12.8 g/dL (14.0-18.0) Hematocrit 39.3 % (42-52) Mean Corpuscular Volume 92.7 fL (80-100) Mean Corpuscular Hemoglobin 30.2 pg (25-34) Mean Corpuscular Hemoglobin Concent 32.6 g/dl (32-36) Platelet Count 164 K/uL (130-400) Mean Platelet Volume 10.3 fL (7.4-10.4) Neutrophils (%) (Auto) 59.9 % Lymphocytes (%) (Auto) 20.0 % Monocytes (%) (Auto) 14.4 % Eosinophils (%) (Auto) 4.6 % Basophils (%) (Auto) 0.7 % Neutrophils # (Auto) 3.36 K/uL (1.4-6.5) Lymphocytes # (Auto) 1.12 K/uL (1.2-3.4) Monocytes # (Auto) 0.81 K/uL (0.11-0.59) Eosinophils # (Auto) 0.26 K/uL (0-0.5) Basophils # (Auto) 0.04 K/uL (0-0.2) RDW Standard Deviation 46.5 fL (36.4-46.3) RDW Coefficient of Variation 13.6 % (11.5-14.5) Immature Granulocyte % (Auto) 0.4 % Immature Granulocyte # (Auto) 0.02 K/uL (0.00-0.02) Prothrombin Time 22.1 SECONDS (9.0-12.0) Prothromb Time International Ratio 2.1 (0.9-1.1) Anion Gap 5.0 mmol/L (3-11) Est Creatinine Clear Calc Drug Dose 60.1 ml/min Estimated GFR () 76.6 Estimated GFR (Non- 66.1 BUN/Creatinine Ratio 24.5 (10-20) Calcium Level 8.8 mg/dl (8.5-10.1) Total Bilirubin 0.4 mg/dl (0.2-1) Aspartate Amino Transf (AST/SGOT) 19 U/L (15-37) Alanine Aminotransferase (ALT/SGPT) 17 U/L (12-78) Alkaline Phosphatase 84 U/L (45-117) Total Protein 7.3 gm/dl (6.4-8.2) Albumin 3.3 gm/dl (3.4-5.0) Globulin 4.0 gm/dl (2.5-4.0) Albumin/Globulin Ratio 0.8 (0.9-2) Lipase 251 U/L (73-393) Hemoglobin A1c Test 02/17/17 17:39 Range/Units Estimated Average Glucose 126 mg/dl Hemoglobin A1c 6.0 H 4.5-5.6 % Medical Emergencies . Who to Call and When: Medical Emergencies: If at any time you feel your situation is an emergency, please call 911 immediately. . Non-Emergent Contact Non-Emergency issues call your: Primary Care Provider . . "Provider Documentation" section prepared by Samir Duke. . VTE Core Measure Inpt VTE Proph given/why not?: Warfarin (Coumadin)
--- NOTE | 2017-02-18 12:33 | Discharge Summary ---
Discharge Summary Date of Service Feb 18, 2017. Discharge Summary Admission Date: Feb 17, 2017 at 08:54 Discharge Date: Feb 18, 2017 Principal Diagnosis: nausea and vomiting, suspected hematemesis based on history, but stable hemoglobin while on coumadin with therapeutic INR, lower leg extremity pain bilaterally with resolution of symptoms on gabapentin Admission Information HPI (per Admitting provider): Pt is 86 y/o M with PMH HTN, dementia, abdominal aneurysm and repair, carotid stenosis, interstitial lung disease, prostate CA, presented to ER with c/o nausea, vomiting. History is hard to obtain as pt hx dementia. Son states this morning pt c/o nausea and he noticed had vomit in bucket that looked brown in color this am. Denies any further vomiting since and denies vomiting yesterday. Son reports pt has chronic cough and is spitting into a cup "continuously" throughout the day for approx 15 years. Denies any worsening or changes with this. Also states pt will have intermittent vomiting after eating, thinks occurs once to a couple of times a month. Pt denies constipation or diarrhea or noted melena or hematochezia. Denies abdominal pain. Pt also c/o uncontrolled twitching of his bilateral lower extremities. Son states that just started upon arrival to ER and he hasn't noticed that before. Denies pain to back, hips, legs , neck. Hx R trochanteric bursitis in past requiring injections. Denies any current or recent hip pain. Denies recent injury or falls or hitting head. Son reports he has noticed pt's dementia has been worsening. He reports hx UTI with urinary frequency dx02/07/17, was initially rx Cipro and then switched to amoxicillin on 02/12/17 for 10 day course. Pt denies further urinary frequency and denies hematuria. Pt lives alone at home. Son states that he and his sister stop by house at least 3 times a day to check on pt and sister provides dinner for pt. Reports he ate steak and potatoes last night, nothing to eat today. Denies fever/chills, diaphoresis,GONZALEZ, dizziness, syncope, vision changes, neck pain, CP, SOB, orthopnea, palpitations, hemoptysis, choking, abdominal pain, paresthesias, weakness, extremity weakness, worsening extremity edema, rashes. In ER pt given protonix. Afebrile, BP: 139/78. H/H stable at baseline. Cr: 1.4 ( baseline). INR: 2.1 Physical Exam (per Admitting): General Appearance: WD/WN, no apparent distress Head: normocephalic, atraumatic Eyes: normal inspection, EOMI, sclerae normal ENT: pharynx normal, + pertinent finding (hard of hearing, mildly dry mucous membranes) Neck: supple, no JVD, trachea midline Respiratory/Chest: chest non-tender, lungs clear, normal breath sounds, no respiratory distress, no accessory muscle use, + pertinent finding Cardiovascular: regular rate, rhythm, normal peripheral pulses Abdomen/GI: normal bowel sounds, non tender, soft Back: no CVA tenderness, + pertinent finding (non-tender to palpation, able to sit up easily and rotate torso without difficulty or discomfort) Extremities/Musculoskelatal: normal capillary refill, + pedal edema (1+ bilaterally, legs and arms non-tender to palpation. ROM intact without tenderness. Random spasms/twitching of bilateral legs noted and pt winces when this occurs, but denies pain when this occurs.) Neurologic/Psych: alert (pleasant, oriented to person and month/year) Skin: warm/dry (+dry patches noted to bilateral legs) Hospital Course Patient was admitted on telemetry on 02/17/17 primarily for concern of hematemesis at home (As per patient's family member, the patient vomited brown liquid) Patient was monitored overnight. No further episodes of vomiting while his coumadin levels have remained therapeutic for history if pulmonary embolism in the past. Continues to not have abdominal tenderness or pain on abdominal exam despite somewhat elevated levels of amylase and lipase on admission. Hemoglobin on repeat labs since admission have been stable Based hemodynamic stability and no identifiable source of blood loss, patient can be discharged from the hospital on 02/18/17 Other main concern to hospitalist medical team was discomfort of lower extremities on admission 02/07/17 Patient was unclear whether is having pain or spasms. No pain elicited on palpation of lower extremities. Baclofen and gabapentin ordered in the emergency room. There are no electrolyte abnormalities. There is no lower extremity DVT on ultrasound. X ray imaging of thoracic and lower back showed multi disc level disease but no acute pathology and consultation by neurology also did not lead to diagnosis of acute neurological diagnosis. Neurology architecture consultant physician have asked the baclofen be stopped to avoid risk of delirium and that gabapentin can be given in reduced doses. Neurology architecture consultant also ordered blood work to investigate if leg problem is due to restless leg syndrome As of 02/18/17, patient reports that he does not have any pain symptoms of the legs. Will continue gabapentin 300 mg BID as part of discharge medication If case management can assist in arranging hospital discharge, patient can follow up with 02/19/2017 1:20 PM Terry Cruz MD Internal Medicine [facility] Otherwise, if patient stays in the hospital or if he cannot make the appointment on 02/19/17 then the alternative primary care appointment is 02/25/2017 10:00 AM Cornell Gupta MD Internal Medicine [facility] Total time spent on discharge = 60 minutes This includes examination of the patient, discharge planning, medication reconciliation, and communication with other providers. Discharge Instructions see above
[2017-02-18] MEDS: WARFARIN SOD 3 MG TAB PO SCH (15:53)
--- NOTE | 2017-02-18 16:11 | Progress Note ---
Progress Note Date of Service Feb 18, 2017. Progress Note Case discussed with Cardiology about the consult for the 4 sec paused on tele monitor. Dr. Horowitz reviewed telemonitor and said that was PAC paused. And OK for pt to discharge home for a cardiac standpoint. Will cancel the official cardiology consult.
--- NOTE | 2017-02-18 16:51 | PROGRESS NOTE ---
DATE: 02/18/2017 DATE: 02/18/2017 SUBJECTIVE: I am seeing Mr. Harris in followup of what appears to be some restlessness of his legs as well as neuropathy. His lab work which is back shows a B12 of 251. This is his normal but low normal. His hemoglobin A1c is 6. Immunofixation and RPR are pending. He has done quite well with Gabapentin. On exam he is awake and alert, cooperative. His strength appears full in the lower. There is mild atrophy of the bilateral tibialis anterior. Ankle jerks are absent. Toes are downgoing. His gait is mildly short step but certainly not Parkinsonian. IMPRESSION: The patient came in with leg twitching. When I and by the saw him there were really no symptoms . There were signs that this was neuropathic. He has been doing well on gabapentin. I would recommend that he be supplemented for vitamin B12 and I would like to see him as an outpatient to see how he is doing and how he is tolerating the gabapentin. As well he should be scheduled to see me to perform a nerve conduction EMG. RAISSA
[2017-02-19] MEDS: ALBUTEROL HFA 8 GM INHALER INH SCH ×4 (02:00→13:44)
[2017-02-19 04:00] VITALS: BP 105/54; PULSE 72; TEMP 36.4; O2SAT 92
[2017-02-19] MEDS: PANTOprazole INJ 40 MG in SYRINGE 0 ML IV SCH (06:10)
[2017-02-19 07:21] VITALS: BP 131/67; PULSE 55; TEMP 36.3; O2SAT 90
[2017-02-19] MEDS: CARVEDILOL 6.25 MG TAB PO SCH (07:21)
[2017-02-19] MEDS: GABAPENTIN 300 MG CAP PO SCH (07:21)
[2017-02-19] MEDS: AMOXICILLIN 500 MG CAP PO SCH (07:22)
[2017-02-19 11:14] VITALS: BP 109/63; PULSE 52; TEMP 36.2; O2SAT 95
[2017-02-19 14:26] LABS: HEMATOCRIT 36.4 % (42-52)
[2017-02-19 14:54] VITALS: BP 123/66; PULSE 57; TEMP 36.3; O2SAT 97
--- NOTE | 2017-02-19 15:53 | Progress Note ---
Medicine Progress Note Date & Time of Visit: Feb 19, 2017 at 15:29. Subjective Pt was seen and examined Lying in bed with no distress Continue to spit and seems to be normal for him as per son and pt He is very anxious to go home today He refused to go to rehab Son is interested on a caregiver As per case management, he would have to pay out of pocket for that They agreed on home health Denies any chest pain, palpitation, dizziness and SOB Objective Last 8 Hrs Date Time Temp Pulse Resp B/P (MAP) Pulse Ox O2 Delivery O2 Flow Rate FiO2 02/19/17 14:54 36.3 57 18 123/66 (85) 97 Room Air 02/19/17 12:30 Room Air 02/19/17 11:14 36.2 52 16 109/63 (78) 95 Room Air 02/19/17 08:30 Room Air Physical Exam: General- No acute distress Head- atraumatic Eyes- PERRL, EOMI ENT- oropharynx clear Neck- supple, no JVD Lungs- clear to auscultation Heart- regular rhythm Abdomen- normal bowel sounds, soft Extremities- no calf tenderness Neuro- alert, oriented x 3; PERRL, EOMI Skin- warm & dry Laboratory Results: Last 24 Hours Test 02/19/17 14:10 Hemoglobin 12.1 g/dL Hematocrit 36.4 % Assessment & Plan NAUSEA/VOMITING Questionable hematemesis Hbg has been stable Continue monitor Leg Twitching Possible related to Neuropathy Neuro on board Continue gabapentin consider B12 supplement Follow up with Neurology as an outpatient Will need an EMG as an outpatient Hx PE INR 2.1 yesterday Continue coumadin Will monitor for sign of bleeding Continue follow with the Coumadin clinic DEMENTIA Refused to go to SNF/Rehab Will do home health services Stable PAC 4 seconds pause seen on tele monitor case discussed with cardio Dr. Horowitz recommended no further cardiac testing OK to discharge from cardiac standpoint Official consult was cancelled as per cardio DEPRESSION Stable HTN BP stable -hold lasix and carvedilol today and continue to monitor BP UTI Pt treated out pt for UTI. On amoxicillin x 10 days, started on 02/12/17. Continue amoxicillin INTERSTITIAL LUNG DISEASE Stable DVT PROPHYLAXIS On Coumadin CODE STATUS DNR Disposition Follow up appointment on 02/25/2017 10:00 AM Cornell Gupta MD Internal Medicine [facility] Follow up with neurology Dr. Muller (Please call to schedule for the follow up appointment) Consultants: Neuro Current Inpatient Medications: Current Inpatient Medications Medications (Trade) Dose Ordered Sig/Amilcar Route Start Time Stop Time Status Last Admin Dose Admin Acetaminophen (Tylenol Tab) 650 mg Q4H PRN PO 02/17/17 09:00 03/19/17 08:59 Polyethylene (Miralax Powder Packet) 17 gm DAILY PRN PO 02/17/17 09:00 03/19/17 08:59 Ondansetron HCl (Zofran Inj) 4 mg Q6H PRN IV 02/17/17 09:00 03/19/17 08:59 Pantoprazole Sodium 40 mg/ Syringe 10 ml @ 5 mls/min Q12H IV 02/17/17 18:00 03/19/17 17:59 02/19/17 06:10 5 MLS/MIN Albuterol (Ventolin Hfa Inhaler) 2 puffs Q4H INH 02/17/17 14:00 03/19/17 13:59 02/19/17 13:44 2 PUFFS Amoxicillin (Amoxil Cap) 500 mg BID PO 02/17/17 14:00 02/22/17 13:59 02/19/17 07:22 500 MG Nitroglycerin (Nitrostat Tab) 0.4 mg UD PRN UT 02/17/17 13:00 03/19/17 12:59 Warfarin Sodium (Coumadin Tab) 1.5 mg MoFr@1600 PO 02/17/17 16:00 03/19/17 15:59 02/17/17 16:22 1.5 MG Warfarin Sodium (Coumadin Tab) 3 mg SuTuWeThSa@1600 PO 02/18/17 16:00 03/20/17 15:59 02/18/17 15:53 3 MG Gabapentin (Neurontin Cap) 300 mg BID PO 02/17/17 21:00 03/19/17 20:59 02/19/17 07:21 300 MG Carvedilol (Coreg Tab) 6.25 mg BID PO 02/17/17 21:00 03/19/17 20:59 02/19/17 07:21 6.25 MG
[2017-02-19] MEDS: WARFARIN SOD 3 MG TAB PO SCH (16:29)
[2017-02-19 17:28] VITALS: BP 123/66; PULSE 57; TEMP 36.3; O2SAT 97
== END 2017-02-19 17:57 | disposition home health service (06) | DRG 392 ==
LOC: C.EDB 05:24 → C.MED 08:54 → ENRESERV 09:08 → CANRESERV 09:08 → EDBEDREQSVC 09:12 → ENRESERV 09:37
PROVIDERS: ADMIT Hospitalist; ATTEND Internal Medicine
DX: R11.2 Nausea with vomiting, unspecified (principal); I13.0 Hypertensive heart and chronic kidney disease with heart failure and stage 1 through stage 4 chronic kidney disease, or unspecified chronic kidney disease; I50.32 Chronic diastolic (congestive) heart failure; N39.0 Urinary tract infection, site not specified; J84.9 Interstitial pulmonary disease, unspecified; I11.0 Hypertensive heart disease with heart failure; I25.10 Atherosclerotic heart disease of native coronary artery without angina pectoris; N18.3 Chronic kidney disease, stage 3 (moderate); E78.5 Hyperlipidemia, unspecified; R25.3 Fasciculation; F03.90 Unspecified dementia, unspecified severity, without behavioral disturbance, psychotic disturbance, mood disturbance, and anxiety; Z66 Do not resuscitate; F41.9 Anxiety disorder, unspecified; Z85.46 Personal history of malignant neoplasm of prostate; Z87.891 Personal history of nicotine dependence; Z86.711 Personal history of pulmonary embolism; Z79.01 Long term (current) use of anticoagulants; Z82.49 Family history of ischemic heart disease and other diseases of the circulatory system